=== PATIENT | male | born 1940 | race Caucasian/White ===

== ENCOUNTER 2016-12-31 15:22 | Emergency (ER) | payer MEDICARE ==
[~2016-12-31 15:22] MED LIST: HYZA100T6 PO; LOPR50TA12 PO; WARF5TAB PO; WARF7.5T4 PO
== END 2016-12-31 15:24 | disposition left against medical advice (07) ==
LOC: NED 15:22
DX: R68.89 Other general symptoms and signs (principal)
CPT/HCPCS: 99281

== ENCOUNTER 2017-07-05 23:12 | Emergency (ER) | payer MEDICARE ==
[~2017-07-05] VITALS: Ht 175.3 cm; Wt 88.0 kg
[2017-07-05 23:14] VITALS: BP 180/84; PULSE 80; RESP 16; TEMP 98.2; O2SAT 98
[2017-07-06] MEDS ORDERED: ACETAMINOPHEN 325 MG TAB PO ONE (02:15)
[2017-07-06] MEDS ORDERED: DIPHTH/TETANUS/ACEL PERTUSSIS (BOOSTER) 0.5 ML VIAL/PFS IM ONE (02:15)
--- NOTE | 2017-07-06 02:33 | RADRPT ---
EXAM DATE/TIME: 07/06/2017 02:26 [facility] COMPARISON: No previous studies available for comparison. INDICATIONS : Left elbow pain post fall. MEDICAL HISTORY : None. SURGICAL HISTORY : None. ENCOUNTER: Initial ACUITY: 1 day PAIN SCORE: 4/10 LOCATION: Bilateral elbow. FINDINGS: Multiple view examination of the left elbow demonstrates no soft tissue swelling, joint effusion, or fracture. The osseous structures are in normal alignment. Prominent bone spur at the triceps inserti on site. Bony mineralization is normal. CONCLUSION: 1. No acute findings. Bone spur at triceps insertion site. Josh Leung MD on July 06, 2017 at 2:30 Board Certified Radiologist. This report was verified electronically.
--- NOTE | 2017-07-06 02:33 | RADRPT ---
EXAM DATE/TIME: 07/06/2017 02:24 [facility] COMPARISON: No previous studies available for comparison. INDICATIONS : Pain post fall. MEDICAL HISTORY : None. SURGICAL HISTORY : None. ENCOUNTER: Initial ACUITY: 1 day PAIN SCORE: 110 LOCATION: Bilateral chest FINDINGS: A single view of the chest demonstrates the lungs to be symmetrically aerated without evidence of mas s, infiltrate or effusion. Minimal basilar atelectasis. The cardiomediastinal contours are prominent . Osseous structures are intact. CONCLUSION: 1. Minimal basilar atelectasis. Cardiomegaly. Josh Leung MD on July 06, 2017 at 2:31 Board Certified Radiologist. This report was verified electronically.
--- NOTE | 2017-07-06 03:54 | PD ---
HPI Chief Complaint: Fall Time Seen by Provider: 01:53 Travel History International Travel<30 days: No Contact w/Intl Traveler<30days: No Traveled to known affect area: No History of Present Illness HPI The patient is a 77 year old male who presents to the [facility] [address] emergency department with a history of lower extremity weakness that is chronic with gait instability related to a history of polymyositis and a prior history of cerebrovascular accident with residual mild right-sided weakness. The patient usually uses a walker for stability, however his reports that he frequently will fall backwards, therefore the walker does not seem to always help. She reports that she was helping him to get into the house when he suddenly lost his balance and fell backwards. The patient did not hit his head. He denies having any headache or neck pain. He did land on his left elbow. The patient was noted to have a hematoma. The patient is chronically anticoagulated on Coumadin. He denies having any chest pain or chest pressure. He denies having any new shortness of breath. On reviews of systems otherwise the patient denies any recent fevers, cough, congestion, neck pain, abdominal pain, vomiting, diarrhea, urinary symptoms, or new neurologic symptoms. His tetanus status is unknown. 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 Atrial Fibrillation: Yes Cardiovascular Problems: Yes (HTN, AFIB ) Cerebrovascular Accident: Yes Hypertension: Yes Respiratory: Yes (COPD) Past Surgical History Narrative Surgical The patient's past surgical history is significant for left leg biopsy, coronary artery catheterization with stent placement 1. Coronary Stent: Yes (x1) Other Surgery: Yes (left leg biopsy) Social History Alcohol Use: No Tobacco Use: No Substance Use: No Allergies-Medications (Allergen,Severity, Reaction): Coded Allergies: No Known Allergies (Unverified , 01/02/16) Reported Meds & Prescriptions Reported Meds & Active Scripts Active Reported Warfarin Sodium 5 mg (Warfarin Sodium) 5 Mg Tab 5 Mg PO MOTUWETHFRSA Lopressor (Metoprolol Tartrate) 50 Mg Tab 50 Mg PO BID Hyzaar 100-25 (Losartan Potassium-Hct 100-25) 100 Mg/25 Mg Tab 1 Tab PO HS Warfarin Sodium 7.5 mg (Warfarin Sodium) 7.5 Mg Tab 7.5 Mg PO JOHNSON Review of Systems Except as stated in HPI: all other systems reviewed are Neg General / Constitutional: No: Fever Eyes: No: Visual changes HENT: No: Headaches, Neck Stiffness, Neck Pain Cardiovascular: No: Chest Pain or Discomfort Respiratory: Positive: Shortness of Breath (chronic shortness of breath that is no worse than usual) Gastrointestinal: No: Nausea, Vomiting, Diarrhea, Abdominal Pain Genitourinary: No: Dysuria Musculoskeletal: Positive: Myalgias, Arthralgias, Edema, Pain Skin: No Rash Neurologic: No: Weakness, Focal Abnormalities, Headache, Change in Mentation, Slurred Speech, Sensory Disturbance Psychiatric: No: Depression Endocrine: No: Polydipsia Hematologic/Lymphatic: No: Easy Bruising Physical Exam Narrative General: The patient is a well-developed well-nourished male in no acute distress. Head and Neck exam: Head is normocephalic atraumatic. Eyes: EOMI, pupils are equal round and reactive to light. Nose: Midline septum with pink mucous membranes Mouth: Dentition unremarkable. Moist mucus membranes. Posterior oropharynx is not erythematous. No tonsillar hypertrophy. Uvula midline. Airway patent. Neck: No palpable lymphadenopathy. No nuchal rigidity. No thyromegaly. No spinous process tenderness to palpation. No step-off or crepitus. No erythema or ecchymosis. Cardiovascular: Irregularly irregular with rate control consistent with his history of atrial fibrillation without murmurs, gallops, or rubs. Lungs: Clear to auscultation bilaterally. No wheezes, rhonchi, or rales. Abdomen: Soft, without tenderness to palpation in all 4 quadrants of the abdomen. No guarding, rebound, or rigidity. Normal bowel sounds are audible. No tenderness on palpation of McBurney's point. Extremities: No clubbing, cyanosis, or edema. 2+ pulses in all 4 extremities. No calf tenderness on palpation. The patient has a superficial abrasion on his left knee noted. The patient has no ballotable patella or knee effusion. The patient has no ligament laxity. Patient has no lower extremity tenderness on palpation with full range of motion. The patient on examination of his right upper extremity has no bony tenderness on palpation with full range of motion. The area of interest is the left elbow. The patient is noted to have a hematoma overlying the posterior aspect of the left elbow just distal to the olecranon prominence. The patient has full range of motion. The patient has no bony tenderness or crepitus on palpation. Back: No spinous process tenderness to palpation. No step-off or crepitus. No erythema or ecchymosis. No costovertebral angle tenderness to palpation. Neurologic Exam: Cranial nerves 2-12 were intact on exam. Strength is 5/5 in all 4 extremities. No sensory deficits noted. Skin Exam: No rash noted. Data Data Last Documented VS Vital Signs Date Time Temp Pulse Resp B/P (MAP) Pulse Ox O2 Delivery O2 Flow Rate FiO2 07/06/17 01:30 Room Air 07/05/17 23:14 98.2 80 16 180/84 (116) 98 Orders Orders Elbow, Complete (4 Vws) (07/06/17 01:53) Ice/Cold Pack (07/06/17 01:53) Chest, Single Ap (07/06/17 01:54) Wzca-Bbk-Papobp (Booster) Inj (Boostrix (07/06/17 02:15) Acetaminophen (Tylenol) (07/06/17 02:15) Mik Bandage (07/06/17 02:09) MDM Medical Decision Making Medical Screen Exam Complete: Yes Emergency Medical Condition: Yes Medical Record Reviewed: Yes Interpretation(s) Last Impressions Chest X-Ray 07/06/17153 Signed Impressions: Service Date/Time: Thursday, July 06, 2017 02:24 - CONCLUSION: 1. Minimal basilar atelectasis. Cardiomegaly. Josh Leung MD Elbow X-Ray 07/06/17152 Signed Impressions: Service Date/Time: Thursday, July 06, 2017 02:26 - CONCLUSION: 1. No acute findings. Bone spur at triceps insertion site. Josh Leung MD Differential Diagnosis Contusion, versus hematoma, versus fracture Narrative Course During the course of the patients emergency department visit, the patients history, examination, and differential diagnosis were reviewed with the patient. The patient had an x-ray done of the left arm and chest. The patient was initially provided Tylenol for pain, and update to his tetanus. An ice pack was applied to the patient's left arm. Radiology studies were reviewed and remarkable for a chest x-ray that showed cardiomegaly, bibasilar atelectasis, no other acute abnormality. Elbow x-ray revealed no acute findings, bony spur at the triceps insertion site. An Mik wrap was applied to the patient's left arm. The patient was instructed regarding rice therapy. The patient is resting comfortably and feels better, is alert and in no distress. The patients results and examination findings were discussed with the patient. The repeat examination is unremarkable and benign. The history, exam, diagnostic testing, and current condition do not suggest any significant pathology to warrant further testing, continued ED treatment, admission, or surgical evaluation at this point. The vital signs have been stable. The patient does not have uncontrollable pain, intractable vomiting, or other significant symptoms. The patient's condition is stable and appropriate for discharge. The patient will pursue further outpatient evaluation with a primary care physician or other designated or consulting physician as indicated in the discharge instructions. The patient expressed understanding and was agreeable with this plan. Diagnosis Primary Impression: Contusion of left arm Qualified Codes: S40.022A - Contusion of left upper arm, initial encounter Additional Instructions: The patient is instructed to take Tylenol as written on the package as needed for discomfort. The patient is instructed on rest, ice, compression, and elevation of the area of interest. They are instructed to follow-up with the patient's primary care physician to discuss the patient's gait instability and the possibility of getting a wheelchair. Med/Other Pt SpecificInfo: No Change to Meds Disposition: 01 DISCHARGE HOME Condition: Stable Dina Whitley MD Jul 06, 2017 03:54
== END 2017-07-06 04:43 | disposition home or self-care (01) ==
LOC: NEPE 23:12
DX: S40.022A Contusion of left upper arm, initial encounter (principal); S80.212A Abrasion, left knee, initial encounter; I51.7 Cardiomegaly; R06.02 Shortness of breath; I48.91 Unspecified atrial fibrillation; I69.854 Hemiplegia and hemiparesis following other cerebrovascular disease affecting left non-dominant side; M33.20 Polymyositis, organ involvement unspecified; W18.30XA Fall on same level, unspecified, initial encounter; Z23 Encounter for immunization
CPT/HCPCS: 71010; 73080; 90471; 90715

== ENCOUNTER 2017-08-10 09:54 | Inpatient (IN) | payer MEDICARE ==
[~2017-08-10] VITALS: Ht 170.2 cm; Wt 91.1 kg
[2017-08-10] VITALS (8 sets, daily range): BP systolic 121–198; BP diastolic 63–93; PULSE 80–102; RESP 18–20; TEMP 97.6–97.8; O2SAT 94–97
[2017-08-10] MEDS ORDERED: LOSA100T2 PO (10:06)
[2017-08-10] MEDS ORDERED: WARF-23 PO (10:06)
[2017-08-10] MEDS ORDERED: METO-309 PO (10:06)
[2017-08-10] MEDS ORDERED: WARF-60 PO (10:06)
--- NOTE | 2017-08-10 10:36 | PD ---
HPI Chief Complaint: Nosebleed Time Seen by Provider: 10:31 Travel History International Travel<30 days: No Contact w/Intl Traveler<30days: No Traveled to known affect area: No History of Present Illness HPI 77-year-old man with history of A. fib, currently on Coumadin, presents to the ER today brought in by his because he had a nosebleed at home this morning. He currently states that the bleeding seems to have stopped. He is still coughing a small amount of blood up. His states that they had talked to their primary care doctor and had been told to come to get his blood work checked out. He denies any fevers, chest pains, shortness of breath, or any other issues. Modifying Factors: None Associated Signs & Symptoms: Epistaxis Risk Factors: On Coumadin PFSH Past Medical History Hx Anticoagulant Therapy: Yes (COUMADIN) Atrial Fibrillation: Yes Cardiovascular Problems: Yes (HTN, AFIB ) Cerebrovascular Accident: Yes Hypertension: Yes Respiratory: Yes (COPD) Tetanus Vaccination: < 5 Years Past Surgical History Coronary Stent: Yes (x1) Other Surgery: Yes (left leg biopsy) Social History Alcohol Use: No Tobacco Use: No Substance Use: No Allergies-Medications (Allergen,Severity, Reaction): Coded Allergies: No Known Allergies (Unverified , 01/02/16) Reported Meds & Prescriptions Reported Meds & Active Scripts Active Reported Lopressor (Metoprolol Tartrate) 50 Mg Tab 50 Mg PO BID Losartan-Hydrochlorothiazide 100-25 Mg Tab 1 Tab PO DAILY Warfarin 6 Mg Tab 6 Mg PO JOHNSON Warfarin 5 Mg Tab 5 Mg PO ,,,,F,SA Review of Systems Except as stated in HPI: all other systems reviewed are Neg Physical Exam Narrative 5GENERAL: Well-developed elderly white male patient currently in mild distress, awake and oriented 3, coughing intermittently. Aphasic, difficult to understand. SKIN: Focused skin assessment warm/dry. HEAD: Atraumatic. Normocephalic. EYES: Pupils equal and round. No scleral icterus. No injection or drainage. ENT: Mucosa pink and moist. No erythema or exudates. No uvular edema. No uvular , palatal, or tonsillar deviation. Airway patent. Nasal turbinates appear normal small amount of dried left nostril blood, but no significant purulent drainage or septal hematoma. NECK: Trachea midline. No JVD. CARDIOVASCULAR: Regular rate and rhythm. No murmur appreciated. RESPIRATORY: No accessory muscle use. Clear to auscultation. Breath sounds equal bilaterally. GASTROINTESTINAL: Abdomen soft, non-tender, nondistended. Hepatic and splenic margins not palpable. MUSCULOSKELETAL: No obvious deformities. No clubbing. No cyanosis. No edema. NEUROLOGICAL: Awake and alert. No obvious cranial nerve deficits. Motor grossly within normal limits. Aphasic. PSYCHIATRIC: Appropriate mood and affect; insight and judgment normal. Data Data Last Documented VS Vital Signs Date Time Temp Pulse Resp B/P (MAP) Pulse Ox O2 Delivery O2 Flow Rate FiO2 08/10/17 09:55 97.6 92 20 198/93 (128) 97 Room Air Orders Orders Complete Blood Count With Diff (08/10/17 10:11) Basic Metabolic Panel (Bmp) (08/10/17 10:11) Prothrombin Time / Inr (Pt) (08/10/17 10:11) Act Partial Throm Time (Ptt) (08/10/17 10:11) Type And Screen (08/10/17 10:11) Chest, Single Ap (08/10/17 10:31) Benzocaine 20% Oral Spr (Hurricaine 20% (08/10/17 12:45) Urinalysis - C+S If Indicated (08/10/17 12:38) Admit Order (Ed Use Only) (08/10/17 12:46) Complete Blood Count With Diff (08/10/17 16:00) Labs Laboratory Tests Test 08/10/17 10:50 08/10/17 12:45 White Blood Count 8.5 TH/MM3 Red Blood Count 3.44 MIL/MM3 Hemoglobin 11.7 GM/DL Hematocrit 34.9 % Mean Corpuscular Volume 101.6 FL Mean Corpuscular Hemoglobin 34.0 PG Mean Corpuscular Hemoglobin Concent 33.4 % Red Cell Distribution Width 14.0 % Platelet Count 182 TH/MM3 Mean Platelet Volume 7.7 FL Neutrophils (%) (Auto) 71.6 % Lymphocytes (%) (Auto) 18.4 % Monocytes (%) (Auto) 9.2 % Eosinophils (%) (Auto) 0.1 % Basophils (%) (Auto) 0.7 % Neutrophils # (Auto) 6.1 TH/MM3 Lymphocytes # (Auto) 1.6 TH/MM3 Monocytes # (Auto) 0.8 TH/MM3 Eosinophils # (Auto) 0.0 TH/MM3 Basophils # (Auto) 0.1 TH/MM3 CBC Comment DIFF FINAL Differential Comment Prothrombin Time 35.8 SEC Prothromb Time International Ratio 3.1 RATIO Activated Partial Thromboplast Time 35.5 SEC Blood Urea Nitrogen 33 MG/DL Creatinine 1.11 MG/DL Random Glucose 91 MG/DL Calcium Level 8.8 MG/DL Sodium Level 143 MEQ/L Potassium Level 4.3 MEQ/L Chloride Level 109 MEQ/L Carbon Dioxide Level 26.9 MEQ/L Anion Gap 7 MEQ/L Estimat Glomerular Filtration Rate 64 ML/MIN Urine Color YELLOW Urine Turbidity CLEAR Urine pH 7.5 Urine Specific [place] 1.013 Urine Protein NEG mg/dL Urine Glucose (UA) NEG mg/dL Urine Ketones TRACE mg/dL Urine Occult Blood MOD Urine Nitrite NEG Urine Bilirubin NEG Urine Urobilinogen LESS THAN 2.0 MG/DL Urine Leukocyte Esterase TRACE Urine RBC /hpf Urine WBC 7 /hpf Urine Mucus FEW /lpf Microscopic Urinalysis Comment CULT NOT INDICATED MDM Medical Decision Making Medical Screen Exam Complete: Yes Emergency Medical Condition: Yes Medical Record Reviewed: Yes Interpretation(s) Laboratory Tests Test 08/10/17 10:50 08/10/17 12:45 Red Blood Count 3.44 MIL/MM3 (4.50-5.90) Hemoglobin 11.7 GM/DL (13.0-17.0) Hematocrit 34.9 % (39.0-51.0) Mean Corpuscular Volume 101.6 FL (80.0-100.0) Neutrophils (%) (Auto) 71.6 % (16.0-70.0) Monocytes (%) (Auto) 9.2 % (0.0-8.0) Prothrombin Time 35.8 SEC (9.8-11.6) Activated Partial Thromboplast Time 35.5 SEC (24.3-30.1) Blood Urea Nitrogen 33 MG/DL (7-18) Chloride Level 109 MEQ/L (98-107) Estimat Glomerular Filtration Rate 64 ML/MIN (>89) Last 24 hours Impressions Chest X-Ray 08/10/17 1031 Signed Impressions: Service Date/Time: Thursday, August 10, 2017 10:45 - CONCLUSION: No acute disease. No significant change has occurred. Nick Dennison MD Differential Diagnosis Epistaxis, rule out coagulopathy versus anemia Narrative Course Patient's epistaxis stopped by the time he is here in the ER. H&H is stable. Vital signs are stable. INR is 3 which is therapeutic. However, while he was in the ER, he started having epistaxis again and a Rhino Rocket was placed in the left nostril with stopping of bleeding. White reports hematuria while he was in the ER and he was noted that he was having red blood in his urine. At this point, case was discussed with Dr. Rodriguez for admission for observation for bleeding while on anticoagulation. Procedures Procedure Narrative Rhino Rocket placement: Left nostril was sprayed with Hurricaine spray, and rhino rocket was placed after being placed in sterile water. 5 cc of air was insufflated into both balloons. Patient tolerated procedure well. Epistaxis seems to have stopped. Diagnosis Primary Impression: Epistaxis Additional Impressions: Hematuria Anticoagulated Admitting Information Admitting Physician Requests: Admit Reji Garcia MD Aug 10, 2017 10:35
--- NOTE | 2017-08-10 10:49 | RADRPT ---
EXAM DATE/TIME: 08/10/2017 10:45 [facility] COMPARISON: CHEST SINGLE AP, July 06, 2017, 2:24. INDICATIONS : Congestion. MEDICAL HISTORY : Stroke. Congestive heart failure. Chronic obstructive pulmonary disease. atrial fibrillation SURGICAL HISTORY : None. ENCOUNTER: Initial ACUITY: 1 day PAIN SCORE: Non-responsive. LOCATION: Bilateral chest FINDINGS: A single view of the chest demonstrates the lungs to be symmetrically aerated without evidence of mas s, infiltrate or effusion. The heart size is mildly enlarged but stable compared to the prior study. . Osseous structures are intact. CONCLUSION: No acute disease. No significant change has occurred. Nick Dennison MD on August 10, 2017 at 10:47 Board Certified Radiologist. This report was verified electronically.
[2017-08-10 11:11] LABS: AUTOMATED NEUTROPHIL # 6.1 TH/MM3 (1.8-7.7); BASOPHIL # 0.1 TH/MM3 (0-0.2); BASOPHIL % 0.7 % (0.0-2.0); EOSINOPHIL % 0.1 % (0.0-4.0); HEMATOCRIT 34.9 % (39.0-51.0); HEMO FLAGS DIFF FINAL; LYMPH % 18.4 % (9.0-44.0); LYMPHOCYTE # 1.6 TH/MM3 (1.0-4.8); MEAN CELL VOLUME 101.6 FL (80.0-100.0); MEAN CORPUSCULAR HGB CONC 33.4 % (32.0-36.0); MONO % 9.2 % (0.0-8.0); NEUT % 71.6 % (16.0-70.0); PLATELET COUNT 182 TH/MM3 (150-450); RED BLOOD COUNT 3.44 MIL/MM3 (4.50-5.90); WHITE BLOOD COUNT 8.5 TH/MM3 (4.0-11.0)
[2017-08-10 11:20] LABS: APTT (PATIENT) 35.5 SEC (24.3-30.1); INTERNATIONAL NORMALIZED RATIO 3.1 RATIO; PROTHROMBIN TIME - PATIENT 35.8 SEC (9.8-11.6)
[2017-08-10 11:27] LABS: BICARBONATE 26.9 MEQ/L (21.0-32.0); POTASSIUM 4.3 MEQ/L (3.5-5.1)
[2017-08-10] MEDS ORDERED: BENZOCAINE 20% ORAL SPR 60 ML CAN OROPHARYNG ONE (12:45)
[2017-08-10 13:11] LABS: BLOOD, URINE MOD (NEG); COMMENT (UR) CULT NOT INDICATED; CULTURE IF INDICATED CULT NOT INDICATED; GLUCOSE,URINE NEG (NEG); KETONE, URINE TRACE mg/dL (NEG); MUCUS URINE FEW /lpf (OCC); NITRITE,URINE NEG (NEG); PH, URINE 7.5 (5.0-8.5); URINE COLOR YELLOW (YELLW/STRAW)
[2017-08-10] MEDS ORDERED: NALOXONE HCL 0.4 MG/ML AMP IV PUSH PRN (14:45)
[2017-08-10] MEDS ORDERED: SODIUM CHLORIDE 0.9% FLUSH 10 ML FLUSH IV FLUSH PRN (14:45)
[2017-08-10] MEDS ORDERED: ACETAMINOPHEN 325 MG TAB PO PRN (14:45)
[2017-08-10] MEDS ORDERED: ONDANSETRON HCL 4 MG/2 ML VIAL IVP PRN (14:45)
--- NOTE | 2017-08-10 15:23 | MH ---
cc: KESHA ROSARIO M.D., JAWED A. MD DATE OF ADMISSION: 08/10/2017 DATE OF : [address] Kesha Rosario. REASON FOR ADMISSION Bleeding from the nose. HISTORY OF PRESENT ILLNESS The patient is a pleasant 77-year male with significant past medical history of hypertension, atrial fibrillation and COPD, who was brought to the ER because of a nosebleed. The patient started having a nosebleed from this morning and when he came to the ER he was coughing up blood. He continued to have a nosebleed. A Rhino Rocket was put in. Also he had hematuria while in the ER. So he was recommended for admission. He had an INR of 3.1 in the ER. The patient has no other complaint. No headache, no dizziness. No chest pain, diaphoresis or palpitations. There is no abdominal pain. There are no genitourinary symptoms except blood in the urine. PAST MEDICAL HISTORY 1. Hypertension. 2. Atrial fibrillation. 3. COPD. MEDICATIONS Reviewed. Please see the EMR. ALLERGIES No known drug allergies. SOCIAL HISTORY The patient does not smoke, drink or do any drugs. PAST MEDICAL HISTORY 1. Coronary stent x1 in the past. 2. Left leg biopsy. 3. CAD. REVIEW OF SYSTEMS As described above in the history of present illness. Otherwise negative for 10 systems. PHYSICAL EXAMINATION GENERAL: The patient is awake, alert, lying on the bed without any apparent distress with a Rhino Rocket in the left nostril. VITAL SIGNS: Afebrile. Pulse 80, respiratory rate 20, blood pressure 167/86. Pulse ox 97% on room air. HEENT: Head is normocephalic. Negative conjunctival injection. No icterus. Mouth unremarkable. NECK: Supple. No increased JVD. Negative thyromegaly. Central trachea. LUNGS: Slight decreased air entry bibasilar, otherwise unremarkable. HEART: S1 and S2 audible. I do not hear any S3 gallop. ABDOMEN: Soft. No organomegaly. Positive bowel sounds. EXTREMITIES: No cyanosis or pedal edema appreciated. NEUROLOGIC: Awake and alert. Normal facial features. Normal speech. Normal power and tone. Moving all his extremities. He is trying to talk but he cannot talk. He has a history of aphasia. is not at bedside. PSYCHIATRIC: Appropriate mood and affect. LABORATORY Hemoglobin 11.7, hematocrit 34.9, platelet count 182. PT 35.8, INR 3.1, APTT 35.5. Chemistry shows chloride 109, BUN 33. UA shows ketone large, occult blood moderate, leukocyte esterase trace, RBC innumerable, WBC 7. IMAGING Chest x-ray was done which showed no acute disease. No significant change has occurred. ASSESSMENT 1. Epistaxis. 2. Hematuria. 3. High INR. 4. Coagulopathy 5. Atrial fibrillation. 6. Anemia, likely of chronic disease. 7. 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 8. History of hypertension. 9. History of CAD. PLAN 1. Admit to the floor under observation. 2. Hold Coumadin. 3. Monitor PT and INR. 4. ENT consult. 5. H&H this afternoon. 6. Clear liquids for the time being. 7. Monitor blood pressure. 8. Continue home medications as indicated. 9. I explained to the patient. Discussed with the ER physician. 10. Further recommendations to follow as per patient progress. Agapito Rodriguez MD JP/ANITRA /2:46 PM /3:00 PM
[2017-08-10 17:09] LABS: AUTOMATED NEUTROPHIL # 10.5 TH/MM3 (1.8-7.7); BASOPHIL # 0.1 TH/MM3 (0-0.2); BASOPHIL % 0.4 % (0.0-2.0); EOSINOPHIL % 0.1 % (0.0-4.0); HEMATOCRIT 33.1 % (39.0-51.0); LYMPH % 16.7 % (9.0-44.0); LYMPHOCYTE # 2.4 TH/MM3 (1.0-4.8); MEAN CELL VOLUME 101.8 FL (80.0-100.0); MEAN CORPUSCULAR HEMOGLOBIN 32.7 PG (27.0-34.0); MEAN CORPUSCULAR HGB CONC 32.2 % (32.0-36.0); MONO % 10.1 % (0.0-8.0); NEUT % 72.7 % (16.0-70.0); PLATELET COUNT 188 TH/MM3 (150-450); RED BLOOD COUNT 3.25 MIL/MM3 (4.50-5.90); RED CELL DISTRIBUTION WIDTH 13.9 % (11.6-17.2); WHITE BLOOD COUNT 14.5 TH/MM3 (4.0-11.0)
[2017-08-10 17:17] LABS: HEMO FLAGS AUTO DIFF
[2017-08-10 17:55] LABS: SCAN/DIFF AUTO DIFF CONFIRMED
[2017-08-10 17:56] LABS: PLATELET ESTIMATE SMEAR NORMAL (NORMAL); PLATELET MORPHOLOGY NORMAL (NORMAL)
[2017-08-10] MEDS: SODIUM CHLOR 0.9% 1000 ML INJ 1,000 ML IV SCH (19:18)
[2017-08-10] MEDS: SODIUM CHLORIDE 0.9% FLUSH 10 ML FLUSH IV FLUSH SCH (19:57)
[2017-08-10] MEDS: METOPROLOL TARTRATE 50 MG TAB PO SCH (20:01)
[2017-08-10] MEDS: DILTIAZEM HCL 60 MG TAB PO SCH (22:46)
[2017-08-11] VITALS (15 sets, daily range): BP systolic 105–152; BP diastolic 55–86; PULSE 55–88; RESP 16–30; TEMP 97.2–100.5; O2SAT 94–100
[2017-08-11] MEDS ORDERED: NON-FORMULARY DRUG (Losartan-Hydrochlorothiazide 1 TAB) PO SCH (09:00)
[2017-08-11] MEDS ORDERED: PNEUMOCOCCAL POLYVALENT INJ 25 MCG/0.5 ML SYR IM ONE (10:00)
--- NOTE | 2017-08-11 10:06 | HHI.PR ---
Subjective Remarks pt is alert talking mostly yes and no very difficult to understand mumbles denies any pain , n/v , , cough , dizziness, BUCKNER, abd pain, dysuria, ches genia abd pain ROS for 12 point system is otherwise unremarkable Objective Objective Results - Vital Signs Date Time Temp Pulse Resp B/P (MAP) Pulse Ox O2 Delivery O2 Flow Rate FiO2 08/11/17 07:21 97.6 55 22 135/61 (85) 97 08/11/17 04:26 97.8 86 18 134/70 (91) 97 08/10/17 23:35 97.7 86 18 136/63 (87) 96 08/10/17 21:09 97.6 102 18 121/64 (83) 96 08/10/17 19:20 97.6 84 20 141/69 (93) 94 08/10/17 17:30 101 20 174/81 (112) 95 08/10/17 17:27 96 21 08/10/17 16:15 97.8 97 20 149/69 (95) 96 08/10/17 15:53 08/10/17 13:24 80 20 167/86 (113) 08/10/17 09:55 97.6 92 20 198/93 (128) 97 Room Air I/O 08/10/17 08/10/17 08/10/17 08/11/17 08/11/17 08/11/17 07:00 15:00 23:00 07:00 15:00 23:00 # Voids 2 Result Diagram: 08/10/17 1650 08/10/17 1050 Other Results Laboratory Tests Test 08/10/17 10:50 08/10/17 12:45 08/10/17 16:50 White Blood Count 8.5 14.5 Red Blood Count 3.44 3.25 Hemoglobin 11.7 10.6 Hematocrit 34.9 33.1 Mean Corpuscular Volume 101.6 101.8 Mean Corpuscular Hemoglobin 34.0 32.7 Mean Corpuscular Hemoglobin Concent 33.4 32.2 Red Cell Distribution Width 14.0 13.9 Platelet Count 182 188 Mean Platelet Volume 7.7 7.8 Neutrophils (%) (Auto) 71.6 72.7 Lymphocytes (%) (Auto) 18.4 16.7 Monocytes (%) (Auto) 9.2 10.1 Eosinophils (%) (Auto) 0.1 0.1 Basophils (%) (Auto) 0.7 0.4 Neutrophils # (Auto) 6.1 10.5 Lymphocytes # (Auto) 1.6 2.4 Monocytes # (Auto) 0.8 1.5 Eosinophils # (Auto) 0.0 0.0 Basophils # (Auto) 0.1 0.1 CBC Comment DIFF FINAL AUTO DIFF Differential Comment AUTO DIFF CONFIRMED Prothrombin Time 35.8 Prothromb Time International Ratio 3.1 Activated Partial Thromboplast Time 35.5 Blood Urea Nitrogen 33 Creatinine 1.11 Random Glucose 91 Calcium Level 8.8 Sodium Level 143 Potassium Level 4.3 Chloride Level 109 Carbon Dioxide Level 26.9 Anion Gap 7 Estimat Glomerular Filtration Rate 64 Urine Color YELLOW Urine Turbidity CLEAR Urine pH 7.5 Urine Specific [place] 1.013 Urine Protein NEG Urine Glucose (UA) NEG Urine Ketones TRACE Urine Occult Blood MOD Urine Nitrite NEG Urine Bilirubin NEG Urine Urobilinogen LESS THAN 2.0 Urine Leukocyte Esterase TRACE Urine RBC Urine WBC 7 Urine Mucus FEW Microscopic Urinalysis Comment CULT NOT INDICATED Platelet Estimate NORMAL Platelet Morphology Comment NORMAL Physical Exam Physical Exam GENERAL: The patient is awake, alert, lying on the bed without any apparent distress without Rhino Rocket in the left nostril. VITAL SIGNS: reviewed HEENT: Head is normocephalic. Negative conjunctival injection. No icterus. Mouth unremarkable. no bleeding noted from nose or in mouth/ NECK: Supple. No increased JVD. Negative thyromegaly. Central trachea. LUNGS: Slight decreased air entry bibasilar, otherwise unremarkable. HEART: S1 and S2 audible. I do not hear any S3 gallop. ABDOMEN: Soft. No organomegaly. Positive bowel sounds. EXTREMITIES: No cyanosis or pedal edema appreciated. NEUROLOGIC: Awake and alert. Normal facial features. Normal power and tone. Moving all his extremities. He is trying to talk but he cannot talk just saying yes and no and vry hard to undrstands mumbles. He has a history of aphasia. is not at bedside. PSYCHIATRIC: Appropriate mood and affect. A/P Assessment and Plan 1. Epistaxis. 2. Hematuria. 3. High INR. 4. Coagulopathy 5. Atrial fibrillation. 6. Anemia, likely of chronic disease. 7. 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 8. History of hypertension. 9. History of CAD. 10. GI bleed per rectum 12. Hematuria PLAN 1. seen on the floor. 2. Hold Coumadin. 3. Monitor PT and INR. 4. ENT consult. 5. H&H will follow. 6. Clear liquids for the time being. 7. Monitor blood pressure. 8. Continue home medications as indicated. 9. As per RN last night pt has rectal bleeding ? hemmorhoids. will get GI consult will monitor for hematuria labs for today and tomorrow dw in detail on phone about his condition and consequences fo holding coumadin, she understood very well. I explained to the patient. Discussed with rn Further recommendations to follow as per patient progress. pt warrent admission bc of bleeding from few sites, needs further mangment to prevent severe symtomatic anemia and uncontrolled heart rythum. Agapito Rodriguez MD Aug 11, 2017 10:06
[2017-08-11] MEDS: PANTOPRAZOLE SODIUM 40 MG VIAL IV PUSH SCH (10:13)
[2017-08-11] MEDS: METOPROLOL TARTRATE 50 MG TAB PO SCH ×2 (10:13→21:54)
[2017-08-11] MEDS: HYDROCHLOROTHIAZIDE 25 MG TAB PO SCH (10:13)
[2017-08-11] MEDS: LOSARTAN 50 MG TAB PO SCH (10:14)
[2017-08-11] MEDS: DILTIAZEM HCL 60 MG TAB PO SCH ×4 (10:14→21:54)
[2017-08-11] MEDS: SODIUM CHLORIDE 0.9% FLUSH 10 ML FLUSH IV FLUSH SCH ×2 (10:16→21:54)
--- NOTE | 2017-08-11 10:26 | PD.CONS ---
HPI History of Present Illness This is a 77 year old male who takes Coumadin for atrial fibrillation, who presented to the emergency room for evaluation of a nosebleed, where a Rhino rocket was placed. His INR was 3.1 on admission and his H/H was 10.6/33.1. He was admitted as an observation patient, his coumadin was placed on hold, and ENT was consulted. Overnight, the nurse reported that he had some rectal bleeding and therefore GI has been consulted for further evaluation and treatment. The patient denies any history of GI bleeding or peptic ulcer disease. He denies any decreased appetite, abnormal weight loss, nausea or vomiting, heartburn or reflux, abdominal pain, bowel changes, or red blood mixed within his stool. He has not seen any black tarry stools. The nurse reports that he has not had any melena on this shift, but she was told in reports that he had a large melanotic stool overnight. She also reports that he had a significant nosebleed overnight. She is not currently having any active bleeding. (Samira Dyson) PFSH Past Medical History Atrial fibrillation, on coumadin Hypertension COPD Past Surgical History Cardiac catheterization with stent placement Left leg biopsy CAD (Samira Dyson) Coded Allergies: No Known Allergies (Unverified , 01/02/16) Medications Allergies Coded Allergies Type Severity Reaction Last Updated Verified No Known Allergies 01/02/16 No Active Scripts Medications Dose Route/Sig Max Daily Dose Days Date Category Lopressor (Metoprolol Tartrate) 50 Mg Tab 50 Mg PO BID 08/10/17 Reported Losartan-Hydrochlorothiazide 100-25 Mg Tab 1 Tab PO DAILY 08/10/17 Reported Warfarin 6 Mg Tab 6 Mg PO JOHNSON 08/10/17 Reported Warfarin 5 Mg Tab 5 Mg PO M,,,TH,F,SA 08/10/17 Reported Family History Denies any family history of esophageal, gastric, or colorectal cancer Social History Denies use of tobacco, alcohol, or illicit drug use (Samira Dyson) Review of Systems Constitutional: COMPLAINS OF: Fatigue, DENIES: Weight loss, Change in appetite Respiratory: DENIES: Cough Cardiovascular: DENIES: Chest pain Gastrointestinal: COMPLAINS OF: Black stools, DENIES: Abdominal pain, Bloody stools, Constipation, Diarrhea, Nausea, Vomiting, Anorexia, Swelling of Abdomen , Heartburn, Hematemesis Musculoskeletal: COMPLAINS OF: Joint pain Hematologic/lymphatic: COMPLAINS OF: Bruising Neurologic: DENIES: Headache Psychiatric: DENIES: Confusion ROS Epistaxis (KarisSamira Green TESSA) GI Exam Vitals I&O Vital Signs Date Time Temp Pulse Resp B/P (MAP) Pulse Ox O2 Delivery O2 Flow Rate FiO2 08/11/17 07:21 97.6 55 22 135/61 (85) 97 08/11/17 04:26 97.8 86 18 134/70 (91) 97 08/10/17 23:35 97.7 86 18 136/63 (87) 96 08/10/17 21:09 97.6 102 18 121/64 (83) 96 08/10/17 19:20 97.6 84 20 141/69 (93) 94 08/10/17 17:30 101 20 174/81 (112) 95 08/10/17 17:27 96 21 08/10/17 16:15 97.8 97 20 149/69 (95) 96 08/10/17 15:53 08/10/17 13:24 80 20 167/86 (113) I/O 08/10/17 08/10/17 08/10/17 08/11/17 08/11/17 08/11/17 07:00 15:00 23:00 07:00 15:00 23:00 # Voids 2 Imaging Allergies Coded Allergies Type Severity Reaction Last Updated Verified No Known Allergies 01/02/16 No Active Scripts Medications Dose Route/Sig Max Daily Dose Days Date Category Lopressor (Metoprolol Tartrate) 50 Mg Tab 50 Mg PO BID 08/10/17 Reported Losartan-Hydrochlorothiazide 100-25 Mg Tab 1 Tab PO DAILY 08/10/17 Reported Warfarin 6 Mg Tab 6 Mg PO JOHNSON 08/10/17 Reported Warfarin 5 Mg Tab 5 Mg PO M,,WE,TH,F,SA 08/10/17 Reported Laboratory Test 08/10/17 10:50 08/10/17 12:45 08/10/17 16:50 White Blood Count 8.5 TH/MM3 14.5 TH/MM3 Red Blood Count 3.44 MIL/MM3 3.25 MIL/MM3 Hemoglobin 11.7 GM/DL 10.6 GM/DL Hematocrit 34.9 % 33.1 % Mean Corpuscular Volume 101.6 FL 101.8 FL Mean Corpuscular Hemoglobin 34.0 PG 32.7 PG Mean Corpuscular Hemoglobin Concent 33.4 % 32.2 % Red Cell Distribution Width 14.0 % 13.9 % Platelet Count 182 TH/MM3 188 TH/MM3 Mean Platelet Volume 7.7 FL 7.8 FL Neutrophils (%) (Auto) 71.6 % 72.7 % Lymphocytes (%) (Auto) 18.4 % 16.7 % Monocytes (%) (Auto) 9.2 % 10.1 % Eosinophils (%) (Auto) 0.1 % 0.1 % Basophils (%) (Auto) 0.7 % 0.4 % Neutrophils # (Auto) 6.1 TH/MM3 10.5 TH/MM3 Lymphocytes # (Auto) 1.6 TH/MM3 2.4 TH/MM3 Monocytes # (Auto) 0.8 TH/MM3 1.5 TH/MM3 Eosinophils # (Auto) 0.0 TH/MM3 0.0 TH/MM3 Basophils # (Auto) 0.1 TH/MM3 0.1 TH/MM3 CBC Comment DIFF FINAL AUTO DIFF Differential Comment AUTO DIFF CONFIRMED Prothrombin Time 35.8 SEC Prothromb Time International Ratio 3.1 RATIO Activated Partial Thromboplast Time 35.5 SEC Blood Urea Nitrogen 33 MG/DL Creatinine 1.11 MG/DL Random Glucose 91 MG/DL Calcium Level 8.8 MG/DL Sodium Level 143 MEQ/L Potassium Level 4.3 MEQ/L Chloride Level 109 MEQ/L Carbon Dioxide Level 26.9 MEQ/L Anion Gap 7 MEQ/L Estimat Glomerular Filtration Rate 64 ML/MIN Urine Color YELLOW Urine Turbidity CLEAR Urine pH 7.5 Urine Specific [place] 1.013 Urine Protein NEG mg/dL Urine Glucose (UA) NEG mg/dL Urine Ketones TRACE mg/dL Urine Occult Blood MOD Urine Nitrite NEG Urine Bilirubin NEG Urine Urobilinogen LESS THAN 2.0 MG/DL Urine Leukocyte Esterase TRACE Urine RBC /hpf Urine WBC 7 /hpf Urine Mucus FEW /lpf Microscopic Urinalysis Comment CULT NOT INDICATED Platelet Estimate NORMAL Platelet Morphology Comment NORMAL Physical Examination HEENT: Normocephalic; atraumatic; no jaundice. CHEST: Resp. even/unlabored CARDIAC: Irregular ABDOMEN: Soft, nondistended, nontender; no hepatosplenomegaly; bowel sounds are present in all four quadrants. EXTREMITIES: No clubbing, cyanosis, or edema. SKIN: Normal; no rash; no jaundice. DIRECTOR DATA PROCESSING: No focal deficits; alert and oriented times three. (Samira Dyson) Assessment and Plan Plan ASSESSMENT: - Melena, questionable GIB. Pt on Coumadin for Afib and presented to the ER for significant epistaxis. INR 3.1. His coumadin is on hold, s/p rhino rocket yesterday. Pt had more nasal bleeding overnight and reports that he had a large melanotic stool on 11-7 shift. He has not had any further episodes. The patient denies any active GI bleeding. He is not having any GI symptoms. Last HH yesterday afternoon 10.6/33.1. INR 3.1. Clear liquids. No labs from today. Will recheck and plan for EGD in am to r/o GI bleeding. - Epistaxis. ENT consulted. - Coagulopathy. Coumadin at home. INR - Atrial fibrillation, on coumadin at home. Currently on hold. INR 3.1 yesterday. - CAD, COPD per attending PLAN: - Plan for egd in am - Obtain consents - Clear liquids - NPO after MN - Add Protonix 40mg IV daily - Stat PT/INR, CBC - CBC, PT/INR in am - Supportive care - Further recommendations to follow based on results of above - PT seen and examined by Dr. Hendricks and myself and this note is written on his behalf INR came back as 2.5. Nurse reports that patient has had 2 additional melanotic stools. HH was stable this am. Will give 2 units of FFP with Lasix 20mg IV x 1 in between units. Serial HH. EGD in am. Notify GI in am if inr > 2.0 (Samira Dyson) Physician Comments Patient seen and examined Agree with above Continue with current supportive care Monitor labs Plan for EGD tomorrow (Mack Hendricks MD) Samira Dyson Aug 11, 2017 10:26 Mack Hendricks MD Aug 11, 2017 22:42
[2017-08-11] MEDS ORDERED: PANTOPRAZOLE SODIUM 40 MG VIAL IV PUSH SCH (11:15)
--- NOTE | 2017-08-11 12:52 | PD.CONS ---
History of Present Illness Service ENT Consult Requested By ED Reason for Consult Epistaxis, mild Coumadin toxicity. Primary Care Physician Jacob Murguia M.D. Diagnoses: History of Present Illness 77 year old male, Afib, COPD HTN. On Coumadin. Presented with mild epistaxis. This had slowed in the ED, but he was coughing up some blood and INR was 3.1. He had a left Rapid Rhino pack placed with control of bleeding. He evidenced some rectal bleeding and hematuria and is being observed. Coumadin was held. He pulled out the nasal pack last night. There was some old clot after, but no more bleeding. He has no ENT complaints now. Review of Systems Ears, nose, mouth, throat: COMPLAINS OF: Epistaxis, DENIES: Vertigo, Nasal discharge, Oral lesions, Throat pain, Hoarseness, Ear Pain Past Family Social History Allergies: Coded Allergies: No Known Allergies (Unverified , 01/02/16) Physical Exam Vital Signs Vital Signs Date Time Temp Pulse Resp B/P (MAP) Pulse Ox O2 Delivery O2 Flow Rate FiO2 08/11/17 11:04 97.8 73 22 130/62 (84) 94 08/11/17 07:21 97.6 55 22 135/61 (85) 97 08/11/17 04:26 97.8 86 18 134/70 (91) 97 08/10/17 23:35 97.7 86 18 136/63 (87) 96 08/10/17 21:09 97.6 102 18 121/64 (83) 96 08/10/17 19:20 97.6 84 20 141/69 (93) 94 08/10/17 17:30 101 20 174/81 (112) 95 08/10/17 17:27 96 21 08/10/17 16:15 97.8 97 20 149/69 (95) 96 08/10/17 15:53 08/10/17 13:24 80 20 167/86 (113) Physical Exam GENERAL: This is a well-nourished, well-developed patient, in no apparent distress. SKIN: No rashes, ecchymoses or lesions. Cool and dry. HEAD: Atraumatic. Normocephalic. No temporal or scalp tenderness. EYES: Pupils equal round and reactive. Extraocular motions intact. No scleral icterus. No injection or drainage. ENT: Nose without bleeding, purulent drainage or septal hematoma. Throat without erythema, tonsillar hypertrophy or exudate. Uvula midline. Airway patent. NECK: Trachea midline. No JVD or lymphadenopathy. Supple, nontender, no meningeal signs. Laboratory Laboratory Tests Test 08/10/17 16:50 White Blood Count 14.5 Red Blood Count 3.25 Hemoglobin 10.6 Hematocrit 33.1 Mean Corpuscular Volume 101.8 Mean Corpuscular Hemoglobin 32.7 Mean Corpuscular Hemoglobin Concent 32.2 Red Cell Distribution Width 13.9 Platelet Count 188 Mean Platelet Volume 7.8 Neutrophils (%) (Auto) 72.7 Lymphocytes (%) (Auto) 16.7 Monocytes (%) (Auto) 10.1 Eosinophils (%) (Auto) 0.1 Basophils (%) (Auto) 0.4 Neutrophils # (Auto) 10.5 Lymphocytes # (Auto) 2.4 Monocytes # (Auto) 1.5 Eosinophils # (Auto) 0.0 Basophils # (Auto) 0.1 CBC Comment AUTO DIFF Differential Comment AUTO DIFF CONFIRMED Platelet Estimate NORMAL Platelet Morphology Comment NORMAL Result Diagram: 08/10/17 1650 08/10/17 1050 Assessment and Plan Assessment and Plan Mild Coumadin toxicity with anterior epistaxis from ENT point of view. There is no mass on anterior rhinoscopy at bedside and no sign of ENT bleed. No treatment at this time. Can resume Coumadin as indicated. Do not need to hold per ENT. Follow as needed. Discussed Condition With Nursing. Josh Zaragoza MD Aug 11, 2017 12:52
[2017-08-11 13:00] LABS: AUTOMATED NEUTROPHIL # 7.6 TH/MM3 (1.8-7.7); BASOPHIL # 0.1 TH/MM3 (0-0.2); BASOPHIL % 0.7 % (0.0-2.0); EOSINOPHIL # 0.1 TH/MM3 (0-0.4); EOSINOPHIL % 0.6 % (0.0-4.0); HEMATOCRIT 32.1 % (39.0-51.0); HEMO FLAGS DIFF FINAL; LYMPH % 22.5 % (9.0-44.0); LYMPHOCYTE # 2.6 TH/MM3 (1.0-4.8); MEAN CORPUSCULAR HEMOGLOBIN 33.4 PG (27.0-34.0); MONO % 9.8 % (0.0-8.0); NEUT % 66.4 % (16.0-70.0); PLATELET COUNT 198 TH/MM3 (150-450); RED BLOOD COUNT 3.18 MIL/MM3 (4.50-5.90); RED CELL DISTRIBUTION WIDTH 14.1 % (11.6-17.2); WHITE BLOOD COUNT 11.4 TH/MM3 (4.0-11.0)
[2017-08-11 13:16] LABS: INTERNATIONAL NORMALIZED RATIO 2.5 RATIO; PROTHROMBIN TIME - PATIENT 28.3 SEC (9.8-11.6)
[2017-08-11 13:25] LABS: BICARBONATE 22.9 MEQ/L (21.0-32.0); POTASSIUM 3.7 MEQ/L (3.5-5.1)
[2017-08-11] MEDS: SODIUM CHLOR 0.9% 1000 ML INJ 1,000 ML IV SCH (14:02)
[2017-08-11] MEDS ORDERED: SODIUM CHLOR 0.9% 250 ML INJ 250 ML IV ONE (16:45)
--- NOTE | 2017-08-11 17:10 | RADRPT ---
EXAM DATE/TIME: 08/11/2017 16:31 [facility] COMPARISON: CHEST SINGLE AP, August 10, 2017, 10:45. INDICATIONS : Shortness of breath. MEDICAL HISTORY : Stroke. Congestive heart failure. Chronic obstructive pulmonary disease. Atrial fibrillation. SURGICAL HISTORY : None. ENCOUNTER: Subsequent ACUITY: 2 days PAIN SCORE: Non-responsive. LOCATION: chest FINDINGS: The lungs are clear. The heart is minimally enlarged. The pulmonary vascularity is normal. There is n o evidence for infiltrate or failure. The portion of the bony skeleton visualized is unremarkable. CONCLUSION: Compensated cardiomegaly otherwise negative Board Certified Radiologist. This report was verified electronically.
[2017-08-11] MEDS ORDERED: FUROSEMIDE 20 MG/2 ML VIAL IV PUSH SCH (17:30)
[2017-08-11 17:31] LABS: HEMATOCRIT 29.7 % (39.0-51.0); REVIEW FLAG FINAL
[2017-08-12 00:12] LABS: HEMATOCRIT 25.7 % (39.0-51.0); REVIEW FLAG FINAL
[2017-08-12 04:00] VITALS: BP 92/53; PULSE 48; RESP 18; TEMP 97.5; O2SAT 100
[2017-08-12] MEDS ORDERED: METOPROLOL TARTRATE 25 MG TAB PO PRN (05:15)
[2017-08-12] MEDS ORDERED: CHLORHEXIDINE GLUCONATE 2 % 1 PACK (2 CLOTHS) TOPICAL PRN (05:15)
[2017-08-12] MEDS ORDERED: SODIUM CHLORID 0.9% 500 ML IV PRN (05:15)
[2017-08-12] MEDS ORDERED: LACTATED RINGER'S 1000 ML IV PRN (05:15)
[2017-08-12] MEDS ORDERED: POVIDONE IODINE 5% (ANTISEPSIS KIT) 4 APPLICATIONS EACH NARE PRN (05:15)
[2017-08-12] MEDS ORDERED: INSULIN HUMAN REGULAR 1,000 UNITS/10 ML VIAL SQ PRN (05:15)
[2017-08-12 08:00] VITALS: BP 106/54; PULSE 54; PULSE 56; RESP 22; TEMP 97.5; O2SAT 96
[2017-08-12 08:31] LABS: AUTOMATED NEUTROPHIL # 8.5 TH/MM3 (1.8-7.7); BASOPHIL % 0.4 % (0.0-2.0); EOSINOPHIL # 0.1 TH/MM3 (0-0.4); EOSINOPHIL % 0.5 % (0.0-4.0); HEMATOCRIT 25.1 % (39.0-51.0); HEMO FLAGS DIFF FINAL; LYMPH % 15.8 % (9.0-44.0); LYMPHOCYTE # 1.8 TH/MM3 (1.0-4.8); MEAN CELL VOLUME 100.4 FL (80.0-100.0); MEAN CORPUSCULAR HGB CONC 33.8 % (32.0-36.0); MONO % 8.8 % (0.0-8.0); NEUT % 74.5 % (16.0-70.0); PLATELET COUNT 163 TH/MM3 (150-450); RED CELL DISTRIBUTION WIDTH 13.8 % (11.6-17.2); WHITE BLOOD COUNT 11.4 TH/MM3 (4.0-11.0)
[2017-08-12 08:44] LABS: BICARBONATE 21.1 MEQ/L (21.0-32.0); POTASSIUM 3.8 MEQ/L (3.5-5.1)
[2017-08-12 08:45] LABS: INTERNATIONAL NORMALIZED RATIO 1.8 RATIO; PROTHROMBIN TIME - PATIENT 20.8 SEC (9.8-11.6)
[2017-08-12] MEDS: DILTIAZEM HCL 60 MG TAB PO SCH ×4 (09:21→21:14)
[2017-08-12] MEDS: LOSARTAN 50 MG TAB PO SCH (09:22)
[2017-08-12] MEDS: METOPROLOL TARTRATE 50 MG TAB PO SCH ×2 (09:22→21:14)
[2017-08-12] MEDS: SODIUM CHLORIDE 0.9% FLUSH 10 ML FLUSH IV FLUSH SCH ×2 (09:22→21:00)
[2017-08-12] MEDS: PANTOPRAZOLE SODIUM 40 MG VIAL IV PUSH SCH (09:22)
[2017-08-12] MEDS: SODIUM CHLOR 0.9% 1000 ML INJ 1,000 ML IV SCH ×2 (09:22→21:14)
[2017-08-12] MEDS: HYDROCHLOROTHIAZIDE 25 MG TAB PO SCH (09:22)
[2017-08-12] MEDS ORDERED: KETAMINE HCL 500 MG/5 ML VIAL ONE (12:35)
[2017-08-12] MEDS ORDERED: RESP: ALBUTEROL 2.5 MG/3 ML NEB (PRN) ONE (12:38)
--- NOTE | 2017-08-12 13:23 | PD.PROCEDR ---
GI Procedure REFERRING PHYSICIAN Dr. Rodriguez PROCEDURE PERFORMED EGD with biopsy INDICATION FOR PROCEDURE Melena, anemia PROCEDURE: The procedure, risks and benefits were discussed with Mr. Singh and informed consent was obtained. Anesthesia sedated him with Diprivan. He was placed in the left lateral decubitus position. EGD: The Pentax videoscope was introduced through the oropharynx and advanced to the second portion of the duodenum under direct visualization. Retroflexion was performed in the stomach. FINDINGS: Esophagus this was unremarkable and within normal limits The stomach there were superficial erosions noted in the antrum with mild patchy erythema but no ulcerations no blood or bleeding and the rest of the stomach was unremarkable antral biopsy was taken The duodenum this was normal ESTIMATED BLOOD LOSS: None SPECIMENS REMOVED: Antral biopsy COMPLICATIONS: None IMPRESSION: Erosive gastritis PLAN: Await biopsy Recommend Protonix 40 mg daily Avoid NSAIDs and aspirin Monitor labs and transfuse as needed Patient follow-up with GI post discharge Mack Hendricks MD Aug 12, 2017 13:23
--- NOTE | 2017-08-12 14:18 | HHI.PR ---
Subjective Remarks pt is alert talking mostly yes and no very difficult to understand mumbles denies any pain , n/v , , cough , dizziness, BUCKNER, abd pain, dysuria, ches genia abd pain ROS for 10 point system is otherwise unremarkable Objective Objective Results - Vital Signs Date Time Temp Pulse Resp B/P (MAP) Pulse Ox O2 Delivery O2 Flow Rate FiO2 08/12/17 13:40 66 18 110/55 (73) 96 08/12/17 13:30 96.7 76 20 110/64 (79) 94 08/12/17 11:13 52 18 109/55 (73) 96 08/12/17 08:40 Simple Mask 3.00 08/12/17 08:00 97.5 54 22 106/54 (71) 96 08/12/17 04:00 97.5 48 18 92/53 (66) 100 08/12/17 04:00 Simple Mask 3.00 08/12/17 00:00 Simple Mask 3.00 08/11/17 23:00 Simple Mask 3.00 08/11/17 22:35 97.7 68 16 110/55 (73) 98 08/11/17 22:16 99.4 80 25 106/60 98 08/11/17 22:00 99.0 86 25 113/56 100 08/11/17 21:11 99.4 85 30 133/69 100 08/11/17 20:34 100.5 76 22 105/57 (73) 100 08/11/17 19:09 98.9 88 20 152/72 99 08/11/17 18:56 99.9 87 20 132/69 (90) 100 08/11/17 18:52 99.9 87 20 132/69 100 08/11/17 15:45 97.2 88 24 140/86 (104) 94 08/11/17 15:00 56 I/O 08/11/17 08/11/17 08/11/17 08/12/17 08/12/17 08/12/17 07:00 15:00 23:00 07:00 15:00 23:00 Intake Total 472 ml 215 ml 200 ml Output Total 200 ml Balance 272 ml 215 ml 200 ml Intake Oral 240 ml 0 ml FFP 215 ml 215 ml Blood Product IV Normal Saline Flush 17 ml Other 200 ml Output Urine Total 200 ml # Voids 2 1 # Bowel Movements 3 1 Result Diagram: 08/12/17 0724 08/12/17 0724 Other Results Laboratory Tests Test 08/11/17 17:16 08/12/17 00:00 08/12/17 07:24 Hemoglobin 9.8 8.6 8.5 Hematocrit 29.7 25.7 25.1 White Blood Count 11.4 Red Blood Count 2.50 Mean Corpuscular Volume 100.4 Mean Corpuscular Hemoglobin 34.0 Mean Corpuscular Hemoglobin Concent 33.8 Red Cell Distribution Width 13.8 Platelet Count 163 Mean Platelet Volume 8.1 Neutrophils (%) (Auto) 74.5 Lymphocytes (%) (Auto) 15.8 Monocytes (%) (Auto) 8.8 Eosinophils (%) (Auto) 0.5 Basophils (%) (Auto) 0.4 Neutrophils # (Auto) 8.5 Lymphocytes # (Auto) 1.8 Monocytes # (Auto) 1.0 Eosinophils # (Auto) 0.1 Basophils # (Auto) 0.0 CBC Comment DIFF FINAL Differential Comment Prothrombin Time 20.8 Prothromb Time International Ratio 1.8 Blood Urea Nitrogen 62 Creatinine 1.82 Random Glucose 113 Calcium Level 8.4 Sodium Level 145 Potassium Level 3.8 Chloride Level 114 Carbon Dioxide Level 21.1 Anion Gap 10 Estimat Glomerular Filtration Rate 36 Physical Exam Physical Exam GENERAL: The patient is awake, alert, lying on the bed without any apparent distress without Rhino Rocket in the left nostril. VITAL SIGNS: reviewed HEENT: Head is normocephalic. Negative conjunctival injection. No icterus. Mouth unremarkable. no bleeding noted from nose or in mouth/ NECK: Supple. No increased JVD. Negative thyromegaly. Central trachea. LUNGS: Slight decreased air entry bibasilar, otherwise unremarkable. HEART: S1 and S2 audible. I do not hear any S3 gallop. ABDOMEN: Soft. No organomegaly. Positive bowel sounds. EXTREMITIES: No cyanosis or pedal edema appreciated. NEUROLOGIC: Awake and alert. Normal facial features. Normal power and tone. Moving all his extremities. He is trying to talk but he cannot talk just saying yes and no and vry hard to undrstands mumbles. He has a history of aphasia. is at bedside. PSYCHIATRIC: Appropriate mood and affect. A/P Assessment and Plan 1. Epistaxis. 2. Hematuria. 3. High INR. 4. Coagulopathy 5. Atrial fibrillation. 6. Anemia, likely of chronic disease. 7. 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 8. History of hypertension. 9. History of CAD. 10. GI bleed per rectum 12. Hematuria PLAN 1. seen on the floor. 2. Hold Coumadin. 3. Monitor PT and INR. 4. ENT consult is appreciated 5. H&H stable 6. Clear liquids for the time being. 7. Monitor blood pressure. 8. Continue home medications as indicated. 9. Admission GI consult is status post EGD showing gastritis as per RN No report of hematuria labs reviewed. Renal insufficiency. Plan to start IV hydration cautiously. BMP in the morning. dw patient and at bedside Discussed with Agapito Galvez MD Aug 12, 2017 14:18
[2017-08-12] MEDS ORDERED: GLYCOPYRROLATE 1 MG/5 ML SYRINGE IV PUSH ONE (14:49)
[2017-08-12] MEDS ORDERED: LIDOCAINE HCL 1% PF 5 ML AMPULE OTHER ONE (14:49)
[2017-08-12] MEDS ORDERED: ePHEDrine/NS 25 MG/5 ML SYR IV ONE (14:49)
[2017-08-12] MEDS ORDERED: PROPOFOL 200 MG/20 ML AMP IV ONE (14:49)
[2017-08-12 16:00] VITALS: BP 111/53; PULSE 74; RESP 18; TEMP 97.3; O2SAT 94
[2017-08-12 16:25] VITALS: O2SAT 96
[2017-08-12] MEDS ORDERED: DO NOT ADM ANY ANTICOAGULANT DRUGS PRN (16:29)
[2017-08-12 20:00] VITALS: BP 114/54; PULSE 72; PULSE 75; RESP 20; TEMP 97.3; O2SAT 96
[2017-08-13] VITALS (9 sets, daily range): BP systolic 117–126; BP diastolic 55–61; PULSE 53–84; RESP 18–20; TEMP 97–98.2; O2SAT 93–98
[2017-08-13] MEDS: PANTOPRAZOLE SODIUM 40 MG VIAL IV PUSH SCH (07:52)
[2017-08-13] MEDS: LOSARTAN 50 MG TAB PO SCH (07:52)
[2017-08-13] MEDS: HYDROCHLOROTHIAZIDE 25 MG TAB PO SCH (07:53)
[2017-08-13] MEDS: METOPROLOL TARTRATE 50 MG TAB PO SCH ×2 (07:53→20:50)
[2017-08-13] MEDS: DILTIAZEM HCL 60 MG TAB PO SCH ×4 (07:53→20:50)
[2017-08-13] MEDS: SODIUM CHLORIDE 0.9% FLUSH 10 ML FLUSH IV FLUSH SCH ×2 (07:58→20:53)
[2017-08-13 09:52] LABS: HEMATOCRIT 24.7 % (39.0-51.0); MEAN CELL VOLUME 102.2 FL (80.0-100.0); MEAN CORPUSCULAR HEMOGLOBIN 35.1 PG (27.0-34.0); MEAN CORPUSCULAR HGB CONC 34.3 % (32.0-36.0); PLATELET COUNT 168 TH/MM3 (150-450); RED BLOOD COUNT 2.41 MIL/MM3 (4.50-5.90); RED CELL DISTRIBUTION WIDTH 13.9 % (11.6-17.2); REVIEW FLAG FINAL; WHITE BLOOD COUNT 9.9 TH/MM3 (4.0-11.0)
[2017-08-13 10:21] LABS: BICARBONATE 21.8 MEQ/L (21.0-32.0); POTASSIUM 3.5 MEQ/L (3.5-5.1)
--- NOTE | 2017-08-13 10:36 | HHI.PR ---
Subjective Remarks pt is alert talking mostly yes and no very difficult to understand mumbles denies any pain , n/v , , cough , dizziness, BUCKNER, abd pain, dysuria, ches genia abd pain ROS for 10 point system is otherwise unremarkable Are at bedside. As per our and still had a black stool this morning. No diarrhea Objective Objective Results - Vital Signs Date Time Temp Pulse Resp B/P (MAP) Pulse Ox O2 Delivery O2 Flow Rate FiO2 08/13/17 10:13 97 08/13/17 08:20 Room Air 08/13/17 08:20 77 08/13/17 08:00 98.0 77 18 126/58 (80) 97 08/13/17 04:00 Room Air 08/13/17 04:00 98.0 84 20 124/60 (81) 98 08/13/17 00:00 97.8 74 20 117/55 (75) 93 08/13/17 00:00 Room Air 08/12/17 20:00 Room Air 08/12/17 20:00 75 08/12/17 20:00 97.3 72 20 114/54 (74) 96 08/12/17 16:25 96 21 08/12/17 16:00 97.3 74 18 111/53 (72) 94 08/12/17 13:40 66 18 110/55 (73) 96 08/12/17 13:30 96.7 76 20 110/64 (79) 94 08/12/17 11:13 52 18 109/55 (73) 96 I/O 08/12/17 08/12/17 08/12/17 08/13/17 08/13/17 08/13/17 07:00 15:00 23:00 07:00 15:00 23:00 Intake Total 215 ml 450 ml 1018 ml Balance 215 ml 450 ml 1018 ml Intake Oral 0 ml 480 ml IV Total 250 ml 538 ml FFP 215 ml Other 200 ml # Voids 1 2 3 # Bowel Movements 1 2 2 Result Diagram: 08/13/17 0856 08/13/17 0856 Other Results Laboratory Tests Test 08/13/17 08:56 White Blood Count 9.9 Red Blood Count 2.41 Hemoglobin 8.5 Hematocrit 24.7 Mean Corpuscular Volume 102.2 Mean Corpuscular Hemoglobin 35.1 Mean Corpuscular Hemoglobin Concent 34.3 Red Cell Distribution Width 13.9 Platelet Count 168 Mean Platelet Volume 8.5 Blood Urea Nitrogen 52 Creatinine 1.57 Random Glucose 116 Calcium Level 8.2 Sodium Level 143 Potassium Level 3.5 Chloride Level 112 Carbon Dioxide Level 21.8 Anion Gap 9 Estimat Glomerular Filtration Rate 43 Physical Exam Physical Exam GENERAL: The patient is awake, alert, lying on the bed without any apparent distress without Rhino Rocket in the left nostril. VITAL SIGNS: reviewed HEENT: Head is normocephalic. Negative conjunctival injection. No icterus. Mouth unremarkable. no bleeding noted from nose or in mouth/ NECK: Supple. No increased JVD. Negative thyromegaly. Central trachea. LUNGS: Slight decreased air entry bibasilar, otherwise unremarkable. HEART: S1 and S2 audible. I do not hear any S3 gallop. ABDOMEN: Soft. No organomegaly. Positive bowel sounds. EXTREMITIES: No cyanosis or pedal edema appreciated. NEUROLOGIC: Awake and alert. Normal facial features. Normal power and tone. Moving all his extremities. He is trying to talk but he cannot talk just saying yes and no and vry hard to undrstands mumbles. He has a history of aphasia. is at bedside. PSYCHIATRIC: Appropriate mood and affect. A/P Assessment and Plan 1. Epistaxis. 2. Hematuria. 3. High INR. 4. Coagulopathy 5. Atrial fibrillation. 6. Anemia, likely of chronic disease. 7. 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 8. History of hypertension. 9. History of CAD. 10. GI bleed per rectum 12. Hematuria PLAN 1. seen on the floor. 2. Coumadin on hold. As per GI discuss with him on phone okay to restart Coumadin today 3. Monitor PT and INR as outpatient with home health care 4. ENT consult is appreciated okay to restart Coumadin. 5. H&H stable. Improving renal insufficiency 6. Advance diet as tolerated 7. Monitor blood pressure. Stable 8. Continue home medications as indicated. 9. Appreciate GI consult is status post EGD showing erosive gastritis as per maple syrup maker okay to restart Coumadin No report of hematuria labs reviewed. Renal insufficiency improving. Plan to start IV hydration cautiously. BMP in the morning. Restart Coumadin today and observe in-house today. H&H tomorrow if his stable may DC home tomorrow dw patient and at bedside Discussed with RN Agapito Rodriguez MD Aug 13, 2017 10:36
--- NOTE | 2017-08-13 11:58 | HHI.GIFU ---
Subjective Remarks Resting in bed. Tolerating diet. Denies any nausea, vomiting, abdominal pain. Nurse reports that he has had a few "smears" of dark tarry stool. No further nose bleeds. (Samira Dyson) Objective Vitals I&O Vital Signs Date Time Temp Pulse Resp B/P (MAP) Pulse Ox O2 Delivery O2 Flow Rate FiO2 08/13/17 10:13 97 08/13/17 08:20 Room Air 08/13/17 08:20 77 08/13/17 08:00 98.0 77 18 126/58 (80) 97 08/13/17 04:00 Room Air 08/13/17 04:00 98.0 84 20 124/60 (81) 98 08/13/17 00:00 97.8 74 20 117/55 (75) 93 08/13/17 00:00 Room Air 08/12/17 20:00 Room Air 08/12/17 20:00 75 08/12/17 20:00 97.3 72 20 114/54 (74) 96 08/12/17 16:25 96 21 08/12/17 16:00 97.3 74 18 111/53 (72) 94 08/12/17 13:40 66 18 110/55 (73) 96 08/12/17 13:30 96.7 76 20 110/64 (79) 94 I/O 08/12/17 08/12/17 08/12/17 08/13/17 08/13/17 08/13/17 07:00 15:00 23:00 07:00 15:00 23:00 Intake Total 215 ml 450 ml 1018 ml Balance 215 ml 450 ml 1018 ml Intake Oral 0 ml 480 ml IV Total 250 ml 538 ml FFP 215 ml Other 200 ml # Voids 1 2 3 # Bowel Movements 1 2 2 Laboratory Laboratory Tests Test 08/13/17 08:56 White Blood Count 9.9 Red Blood Count 2.41 Hemoglobin 8.5 Hematocrit 24.7 Mean Corpuscular Volume 102.2 Mean Corpuscular Hemoglobin 35.1 Mean Corpuscular Hemoglobin Concent 34.3 Red Cell Distribution Width 13.9 Platelet Count 168 Mean Platelet Volume 8.5 Blood Urea Nitrogen 52 Creatinine 1.57 Random Glucose 116 Calcium Level 8.2 Sodium Level 143 Potassium Level 3.5 Chloride Level 112 Carbon Dioxide Level 21.8 Anion Gap 9 Estimat Glomerular Filtration Rate 43 Imaging Last Impressions Chest X-Ray 08/11/17 0000 Signed Impressions: Service Date/Time: Friday, August 11, 2017 16:31 - CONCLUSION: Compensated cardiomegaly otherwise negative Board Certified Radiologist. This report was verified electronically. MD Physical Exam HEENT: Normocephalic; atraumatic; no jaundice. CHEST: Resp. even/unlabored CARDIAC: Irregular ABDOMEN: Soft, nondistended, nontender; no hepatosplenomegaly; bowel sounds are present in all four quadrants. EXTREMITIES: No clubbing, cyanosis, or edema. SKIN: Normal; no rash; no jaundice. SYSTEMS TEST TECHNICIAN: No focal deficits; alert and oriented to self and place (Samira Dyson) Assessment and Plan Plan ASSESSMENT: - Melena, questionable GIB. Pt on Coumadin for Afib and presented to the ER for significant epistaxis. INR 3.1. His coumadin is on hold, s/p rhino rocket yesterday. Pt came in with nasal bleeding and had a few melanotic stools. S/P EGD (08/12/17)---> Erosive gastritis. Pathology pending. Nurse reports that he has had a few "smears" of black stool, no further nose bleeds and no dontrell red blood. 8.03/17.7. - Anemia, blood loss. S/P 2 units PRBC. 8.03/17.7. - Epistaxis. S/P ENT eval. No further episodes per nurse. - Coagulopathy. Coumadin at home. INR - Atrial fibrillation, on coumadin at home. - CAD, COPD per attending PLAN: - RADHA - Await pathology - Protonix 40mg po daily - Avoid NSAIDs and aspirin - Monitor labs - Supportive care - Further recommendations to follow based on results of above - PT seen and examined by Dr. Hendricks and myself and this note is written on his behalf (Samira Dyson) Physician Comments Patient seen and examined Agree with above Continue with current supportive care Monitor labs Avoid NSAIDs and aspirin and continue with PPI Okay to resume anticoagulation We will sign off (Mack Hendricks MD) Samira Dyson Aug 13, 2017 11:58 Mack Hendricks MD Aug 13, 2017 20:52
[2017-08-13] MEDS: SODIUM CHLOR 0.9% 1000 ML INJ 1,000 ML IV SCH (12:22)
[2017-08-13] MEDS: WARFARIN SOD 5 MG TAB PO SCH (17:26)
[2017-08-14] VITALS (8 sets, daily range): BP systolic 106–150; BP diastolic 51–62; PULSE 44–61; RESP 18–20; TEMP 97.2–100.2; O2SAT 94–100
[2017-08-14] MEDS: SODIUM CHLOR 0.9% 1000 ML INJ 1,000 ML IV SCH ×3 (02:30→17:08)
[2017-08-14 05:39] LABS: HEMATOCRIT 23.9 % (39.0-51.0); MEAN CELL VOLUME 103.4 FL (80.0-100.0); MEAN CORPUSCULAR HEMOGLOBIN 34.2 PG (27.0-34.0); MEAN CORPUSCULAR HGB CONC 33.1 % (32.0-36.0); PLATELET COUNT 161 TH/MM3 (150-450); RED BLOOD COUNT 2.31 MIL/MM3 (4.50-5.90); RED CELL DISTRIBUTION WIDTH 13.9 % (11.6-17.2); REVIEW FLAG FINAL; WHITE BLOOD COUNT 8.8 TH/MM3 (4.0-11.0)
[2017-08-14 05:41] LABS: INTERNATIONAL NORMALIZED RATIO 1.4 RATIO; PROTHROMBIN TIME - PATIENT 15.6 SEC (9.8-11.6)
[2017-08-14 05:56] LABS: BICARBONATE 21.1 MEQ/L (21.0-32.0); POTASSIUM 3.5 MEQ/L (3.5-5.1)
[2017-08-14] MEDS: SODIUM CHLORIDE 0.9% FLUSH 10 ML FLUSH IV FLUSH SCH ×2 (07:41→20:21)
[2017-08-14] MEDS: METOPROLOL TARTRATE 50 MG TAB PO SCH ×2 (08:24→20:21)
[2017-08-14] MEDS: PANTOPRAZOLE SOD 40 MG DELAYED RELEASE TAB PO SCH (08:24)
[2017-08-14] MEDS: LOSARTAN 50 MG TAB PO SCH (08:24)
[2017-08-14] MEDS: HYDROCHLOROTHIAZIDE 25 MG TAB PO SCH (08:24)
[2017-08-14] MEDS: DILTIAZEM HCL 60 MG TAB PO SCH ×4 (08:28→20:20)
--- NOTE | 2017-08-14 08:41 | HHI.PR ---
Subjective Remarks 77yr old male seen and examined today. pt is awake, responds appropriately by saying yes or no. Difficult to understand as he mumbles denies any pain , n/v/diarrhea , , cough , dizziness, BUCKNER, abd pain, dysuria, chest pain. Had a temp of 100.2: axillary temp at 4 am today. Rpt one after 4hrs: 97.7. ROS for 10 point system is otherwise unremarkable Objective Objective Results - Vital Signs Date Time Temp Pulse Resp B/P (MAP) Pulse Ox O2 Delivery O2 Flow Rate FiO2 08/14/17 04:00 Nasal Cannula 2.00 08/14/17 04:00 100.2 54 20 112/55 (74) 96 08/14/17 00:00 Nasal Cannula 2.00 08/14/17 00:00 97.7 54 20 121/59 (79) 95 08/13/17 20:00 54 08/13/17 19:00 Nasal Cannula 2.00 08/13/17 17:55 97 21 08/13/17 16:00 97.0 60 20 120/61 (80) 97 08/13/17 12:00 98.2 53 20 117/57 (77) 98 08/13/17 10:13 97 I/O 08/13/17 08/13/17 08/13/17 08/14/17 08/14/17 08/14/17 07:00 15:00 23:00 07:00 15:00 23:00 Intake Total 2366 ml 1283 ml Balance 2366 ml 1283 ml Intake Oral 720 ml IV Total 1646 ml 1283 ml # Voids 3 6 # Bowel Movements 2 3 Result Diagram: 08/14/17 0452 08/14/17 0452 Other Results Laboratory Tests Test 08/13/17 08:56 08/14/17 04:52 White Blood Count 9.9 8.8 Red Blood Count 2.41 2.31 Hemoglobin 8.5 7.9 Hematocrit 24.7 23.9 Mean Corpuscular Volume 102.2 103.4 Mean Corpuscular Hemoglobin 35.1 34.2 Mean Corpuscular Hemoglobin Concent 34.3 33.1 Red Cell Distribution Width 13.9 13.9 Platelet Count 168 161 Mean Platelet Volume 8.5 8.8 Blood Urea Nitrogen 52 49 Creatinine 1.57 1.52 Random Glucose 116 106 Calcium Level 8.2 8.5 Sodium Level 143 145 Potassium Level 3.5 3.5 Chloride Level 112 114 Carbon Dioxide Level 21.8 21.1 Anion Gap 9 10 Estimat Glomerular Filtration Rate 43 45 Prothrombin Time 15.6 Prothromb Time International Ratio 1.4 ROS General: Fatigue, Weakness HEENT: No: Sore Throat, Dysphagia, Other Cardiac: No: Chest Pain, Edema, Palpitations, Other Pulmonary: No: Cough, SOB, Wheezing, Other GI: No: Abdominal Pain, BM, Diarrhea, N/V, Other /CLOTHES MARKER: No: Dysuria, Urgency, Other Neuro/MS: No: Lightheaded, Confusion, Other Physical Exam Physical Exam PHYSICAL EXAMINATION GENERAL: The patient is awake, alert, lying on the bed without any apparent distress without Rhino Rocket in the left nostril. VITAL SIGNS: reviewed HEENT: Head is normocephalic. Negative conjunctival injection. No icterus. Mouth unremarkable. no bleeding noted from nose or in mouth NECK: Supple. No increased JVD. Negative thyromegaly. Central trachea. LUNGS: Slight decreased air entry bibasilar, otherwise unremarkable. HEART: S1 and S2 audible. No S3 gallop. ABDOMEN: Soft. No organomegaly. Positive bowel sounds. EXTREMITIES: No cyanosis or pedal edema appreciated. NEUROLOGIC: Awake and alert. Normal facial features. Normal power and tone. Moving all his extremities. He is trying to talk but he cannot talk just saying yes and no and very hard to understand, mumbles. He has a history of aphasia. PSYCHIATRIC: Appropriate mood and affect. A/P Assessment and Plan Assessment and Plan 1. Epistaxis. 2. Hematuria. 3. High INR. 4. Coagulopathy 5. Atrial fibrillation. 6. ?Fever. 7. Anemia, likely of chronic disease. 8. 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 9. History of hypertension. 10. History of CAD. 11. GI bleed per rectum 12. Hematuria PLAN 1. Seen on the floor. No report of hematuria: labs reviewed. Renal insufficiency improving. 2. As per GI discussion yesterday patient has been restarted on Coumadin. 3. INR: 1.4: will continue current dose of coumadin at 5mg. 4. ENT consult is appreciated: okay to restart Coumadin. 5. Slight decrease in H&H: monitor. Improving renal insufficiency 6. Advance diet as tolerated 7. Monitor blood pressure: Stable 8. Started home medications as indicated. 9. Appreciate GI consult: status post EGD showing erosive gastritis as per property accountant 10.Will monitor patient today: ? fever. 11.CBC, BMP, INR in am. 12.Tylenol prn for fever. 13.IV hydration cautiously. Probable dc in am. dw patient. Discussed with Britni Bradley MD Aug 14, 2017 08:41
[2017-08-14] MEDS: WARFARIN SOD 5 MG TAB PO SCH (17:08)
[2017-08-15] VITALS (9 sets, daily range): BP systolic 114–135; BP diastolic 55–65; PULSE 54–72; RESP 18–20; TEMP 97.2–98.2; O2SAT 94–99
[2017-08-15] MEDS: LOSARTAN 50 MG TAB PO SCH (08:34)
[2017-08-15] MEDS: HYDROCHLOROTHIAZIDE 25 MG TAB PO SCH (08:34)
[2017-08-15] MEDS: PANTOPRAZOLE SOD 40 MG DELAYED RELEASE TAB PO SCH (08:35)
[2017-08-15] MEDS: DILTIAZEM HCL 60 MG TAB PO SCH ×4 (08:35→21:00)
[2017-08-15] MEDS: SODIUM CHLORIDE 0.9% FLUSH 10 ML FLUSH IV FLUSH SCH ×2 (08:35→20:56)
[2017-08-15] MEDS: METOPROLOL TARTRATE 50 MG TAB PO SCH ×2 (08:35→20:55)
[2017-08-15] MEDS: SODIUM CHLOR 0.9% 1000 ML INJ 1,000 ML IV SCH ×2 (08:43→23:33)
[2017-08-15 09:06] LABS: HEMATOCRIT 23.6 % (39.0-51.0); MEAN CELL VOLUME 103.8 FL (80.0-100.0); MEAN CORPUSCULAR HEMOGLOBIN 34.4 PG (27.0-34.0); MEAN CORPUSCULAR HGB CONC 33.1 % (32.0-36.0); PLATELET COUNT 160 TH/MM3 (150-450); RED BLOOD COUNT 2.27 MIL/MM3 (4.50-5.90); RED CELL DISTRIBUTION WIDTH 13.8 % (11.6-17.2); REVIEW FLAG FINAL; WHITE BLOOD COUNT 6.7 TH/MM3 (4.0-11.0)
[2017-08-15 09:13] LABS: INTERNATIONAL NORMALIZED RATIO 1.5 RATIO; PROTHROMBIN TIME - PATIENT 16.7 SEC (9.8-11.6)
[2017-08-15 09:25] LABS: BICARBONATE 20.7 MEQ/L (21.0-32.0); POTASSIUM 3.5 MEQ/L (3.5-5.1)
--- NOTE | 2017-08-15 10:38 | HHI.PR ---
Subjective Remarks 77yr old male seen and examined today. pt is awake, responds appropriately by saying yes or no. Difficult to understand as he mumbles denies any pain , n/v/diarrhea , , cough , dizziness, BUCKNER, abd pain, dysuria, chest pain. ROS for 10 point system is otherwise unremarkable Objective Objective Results - Vital Signs Date Time Temp Pulse Resp B/P (MAP) Pulse Ox O2 Delivery O2 Flow Rate FiO2 08/15/17 10:30 96 Nasal Cannula 2.00 08/15/17 09:45 Nasal Cannula 2.00 08/15/17 08:00 97.6 69 20 130/62 (84) 96 08/15/17 08:00 54 08/15/17 04:00 Nasal Cannula 2.00 08/15/17 04:00 97.2 60 18 117/57 (77) 97 08/15/17 00:00 98.2 72 18 134/60 (84) 97 08/15/17 00:00 Nasal Cannula 2.00 08/14/17 22:48 Nasal Cannula 3.00 08/14/17 20:14 54 08/14/17 20:00 Nasal Cannula 2.00 08/14/17 20:00 97.9 56 18 113/55 (74) 99 08/14/17 16:00 97.2 55 18 121/59 (79) 100 08/14/17 15:06 Nasal Cannula 3.00 21 08/14/17 12:00 97.2 49 20 106/51 (69) 100 I/O 08/14/17 08/14/17 08/14/17 08/15/17 08/15/17 08/15/17 07:00 15:00 23:00 07:00 15:00 23:00 Intake Total 1283 ml 720 ml 240 ml 1000 ml Output Total 900 ml 900 ml Balance 1283 ml -180 ml -660 ml 1000 ml Intake Oral 720 ml 240 ml IV Total 1283 ml 1000 ml Output Urine Total 900 ml 900 ml # Bowel Movements 1 0 Result Diagram: 08/15/1735 08/15/17 0735 Other Results Laboratory Tests Test 08/15/17 07:35 White Blood Count 6.7 Red Blood Count 2.27 Hemoglobin 7.8 Hematocrit 23.6 Mean Corpuscular Volume 103.8 Mean Corpuscular Hemoglobin 34.4 Mean Corpuscular Hemoglobin Concent 33.1 Red Cell Distribution Width 13.8 Platelet Count 160 Mean Platelet Volume 8.6 Prothrombin Time 16.7 Prothromb Time International Ratio 1.5 Blood Urea Nitrogen 36 Creatinine 1.27 Random Glucose 87 Calcium Level 8.4 Sodium Level 144 Potassium Level 3.5 Chloride Level 115 Carbon Dioxide Level 20.7 Anion Gap 8 Estimat Glomerular Filtration Rate 55 ROS General: No: Fatigue, Weakness, Other HEENT: No: Sore Throat, Dysphagia, Other Cardiac: No: Chest Pain, Edema, Palpitations, Other Pulmonary: No: Cough, SOB, Wheezing, Other GI: No: Abdominal Pain, BM, Diarrhea, N/V, Other /CHIEF MECHANICAL ENGINEER: No: Dysuria, Urgency, Other Neuro/MS: No: Lightheaded, Confusion, Other Psych: No: Anxiety, Depression, Other Physical Exam Physical Exam PHYSICAL EXAMINATION GENERAL: The patient is awake, alert, lying on the bed without any apparent distress without Rhino Rocket in the left nostril. VITAL SIGNS: reviewed HEENT: Head is normocephalic. Negative conjunctival injection. No icterus. Mouth unremarkable. no bleeding noted from nose or in mouth NECK: Supple. No increased JVD. Negative thyromegaly. Central trachea. LUNGS: Slight decreased air entry bibasilar, otherwise unremarkable. HEART: S1 and S2 audible. No S3 gallop. ABDOMEN: Soft. No organomegaly. Positive bowel sounds. EXTREMITIES: No cyanosis or pedal edema appreciated. NEUROLOGIC: Awake and alert. Normal facial features. Normal power and tone. Moving all his extremities. He is trying to talk but he cannot talk just saying yes and no and very hard to understand, mumbles. He has a history of aphasia. PSYCHIATRIC: Appropriate mood and affect. A/P Assessment and Plan Assessment and Plan 1. Epistaxis. 2. Hematuria. 3. High INR. 4. Coagulopathy 5. Atrial fibrillation. 6. ?Fever. 7. Anemia, likely of chronic disease. 8. 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 9. History of hypertension. 10. History of CAD. 11. GI bleed per rectum 12. Hematuria PLAN 1. Seen on the floor. No report of hematuria: labs reviewed. Renal insufficiency improving. 2. As per discussion with GI patient has been restarted on Coumadin. 3. INR: 1.5: will give an additional dose of coumadin 2.5mg today. Total: 7.5mg. Check INR in am. 4. ENT consult is appreciated: okay to restart Coumadin. 5. H&H: stable. Improving renal insufficiency 6. Advance diet as tolerated 7. Monitor blood pressure: Stable 8. Started home medications as indicated. 9. Appreciate GI consult: status post EGD showing erosive gastritis as per mortgage loan processor 10.H/H, INR in am. 12.Tylenol prn for fever. 13.IV hydration cautiously. Probable dc in am. dw patient. Discussed with Britni Bradley MD Aug 15, 2017 10:38
[2017-08-15] MEDS ORDERED: WARFARIN SOD 2.5 MG TAB PO ONE (11:30)
[2017-08-15] MEDS: WARFARIN SOD 5 MG TAB PO SCH (17:58)
[2017-08-16] VITALS (13 sets, daily range): BP systolic 119–150; BP diastolic 57–65; PULSE 51–84; RESP 16–20; TEMP 97.1–98.1; O2SAT 92–100
[2017-08-16 08:19] LABS: INTERNATIONAL NORMALIZED RATIO 1.9 RATIO; PROTHROMBIN TIME - PATIENT 21.2 SEC (9.8-11.6)
[2017-08-16] MEDS: LOSARTAN 50 MG TAB PO SCH (08:50)
[2017-08-16] MEDS: PANTOPRAZOLE SOD 40 MG DELAYED RELEASE TAB PO SCH (08:51)
[2017-08-16] MEDS: HYDROCHLOROTHIAZIDE 25 MG TAB PO SCH (08:51)
[2017-08-16] MEDS: DILTIAZEM HCL 60 MG TAB PO SCH ×4 (08:51→20:23)
[2017-08-16] MEDS: METOPROLOL TARTRATE 50 MG TAB PO SCH ×2 (08:51→20:23)
[2017-08-16] MEDS: SODIUM CHLORIDE 0.9% FLUSH 10 ML FLUSH IV FLUSH SCH ×2 (08:51→20:23)
[2017-08-16] MEDS ORDERED: MAGNESIUM SULFATE 1 GM PREMIX 100 ML IV STA (12:02)
--- NOTE | 2017-08-16 12:02 | HHI.PR ---
Subjective Interval History Alert, looking around, answering questions with nodding his head, does not look in any distress, denies pain, no obvious bleeding Review of Systems Constitutional Constitutional Remarks 10 SYSTEMS REVIEWED AND NEGATIVE EXCEPT FOR THE ABOVE BUT NOT RELIABLE Vitals/Results Vital Signs Vital Signs Date Time Temp Pulse Resp B/P (MAP) Pulse Ox O2 Delivery O2 Flow Rate FiO2 08/16/17 09:00 Nasal Cannula 2.00 08/16/17 08:50 74 08/16/17 08:28 98 Nasal Cannula 2.00 08/16/17 08:08 84 08/16/17 08:00 98.1 78 19 129/62 (84) 92 08/16/17 04:00 Nasal Cannula 2.00 08/16/17 04:00 97.6 61 20 141/63 (89) 98 08/16/17 00:00 Nasal Cannula 2.00 08/16/17 00:00 97.4 65 18 122/57 (78) 96 08/15/17 22:12 94 21 08/15/17 20:00 Nasal Cannula 2.00 08/15/17 20:00 97.9 72 18 135/65 (88) 99 08/15/17 19:58 64 08/15/17 16:00 97.4 62 20 128/65 (86) 98 08/15/17 12:00 97.4 68 18 114/55 (74) 99 CBC/BMP: 08/16/17 0655 08/15/17 0735 Lab Results Laboratory Tests Test 08/16/17 06:55 Hemoglobin 7.9 GM/DL Prothrombin Time 21.2 SEC Prothromb Time International Ratio 1.9 RATIO Physical Exam General General Appearance: Well Developed, No Acute Distress, Comfortable Eyes Eye Exam: Pupils Reactive Ears & Nose Ears & Nose Exam: Nasal Mucosa Mcintire Throat Throat Exam: Oral Mucosa Mcintire & Moist Neck Neck Exam: Trachea Midline Pulmonary Resp Exam: Crackles, Rhonchi Cardiology CV Exam: Irregular Gastrointestinal/Abdomen GI Exam: Soft, Non-Tender, Bowel Sounds Present Musculoskeletal MS Remarks Aphasic Integumentary Skin Exam: Warm, Dry Neurologic Neuro Exam: Alert, Awake Psychiatric Psych Exam: Appropriate Responses VTE Prophylaxis VTE Prophylaxis Meds: Coumadin Assessment/Plan Assessment/Plan Assessment 18 beats Nonsustained ventricular tachycardia versus SVT with aberrancy this morning, Chest pain with the above Severe anemia Wheezing Admitted with epistaxis, now resolved Admitted with elevated INR, on Coumadin Reported fever History of anemia, atrial fibrillation, stroke with aphasia, hypertension, CAD, rectal bleed Management Serial CKs and troponin Check magnesium level and keep above 2 Check potassium level and keep between 4 and 5 2-D echocardiogram Consult cardiology Chest x-ray Transfuse 1 unit of packed red blood cells Proton pump inhibitor Follow INR level and keep between 2 and 3 Hold Coumadin if there is evidence of active bleeding at this time Discussed with patient, he nods answering questions, unclear if he understood Discussed with nurse several times today Maria Del Rosario Cornejo MD Aug 16, 2017 12:02
[2017-08-16] MEDS: POTASSIUM CHLORIDE 10 MEQ CONTROLLED RELEASE TAB PO SCH ×2 (12:50→20:23)
[2017-08-16 12:53] LABS: CKMB 2.8 NG/ML (0.5-3.6)
[2017-08-16 13:12] LABS: BICARBONATE 22.2 MEQ/L (21.0-32.0); MAGNESIUM 1.9 MG/DL (1.5-2.5); POTASSIUM 3.5 MEQ/L (3.5-5.1)
[2017-08-16] MEDS: SODIUM CHLOR 0.9% 1000 ML INJ 1,000 ML IV SCH (13:53)
--- NOTE | 2017-08-16 15:26 | MB ---
cc: GUANAKITO CINTRON DO DATE OF CONSULTATION: August 16, 2017 REASON FOR CONSULTATION Wide complex tachycardia. HISTORY OF PRESENT ILLNESS Dimple Singh is a pleasant 77-year-old male who originally presented on August 10, 2017 due to a nosebleed. Apparently, the patient started with a nosebleed and was coughing up blood. A rhino rocket was placed and he was also noted to have hematuria while in the emergency room. INR was 3.1 at that time. He has been worked up from this standpoint and restarted on his coumadin. They were awaiting for his INR to be back to goal range when it appears today he had 18 beat of wide complex tachycardia. It is difficult to ascertain from the patient if he was truly symptomatic during this because he really only shakes his head yes and no, but unsure if he really understands what exactly is going on at the time. In seeing him he is currently hemodynamically and cardiovascularly stable. PAST MEDICAL HISTORY 1. Hypertension. 2. Atrial fibrillation. 3. COPD. PAST SURGICAL HISTORY 1. Cardiac catheterization with stent placement at an unknown time, in an unknown artery. 2. Left leg biopsy. ALLERGIES NO KNOWN DRUG ALLERGIES. MEDICATIONS 1. Coumadin 5 mg on all days except for Wednesday which he takes 6 mg. 2. Lopressor 50 mg b.i.d. 3. Losartan/hydrochlorothiazide 100/25 daily. FAMILY HISTORY No known history of sudden cardiac within the family. SOCIAL HISTORY The patient does not have a history of tobacco or alcohol abuse. REVIEW OF SYSTEMS 14-systems were reviewed including osteopathic pertinent positives and negatives as above, otherwise negative. PHYSICAL EXAMINATION VITAL SIGNS: Temperature 98.1, heart rate 78, blood pressure 129/62, respirations 19, pulse ox 98% on 2 liters. GENERAL: The patient appears well, in no acute distress. Alert and awake. HEENT: Extraocular muscles intact. Mucous membranes moist. NECK: Supple. No JVD at 45 degrees. No carotid bruits heard bilaterally. Carotid upstroke is brisk in nature. HEART: Heart is irregularly, irregular. Positive first and second heart sounds with no murmurs, gallops or rubs. LUNGS: Lungs have decreased breath sounds bilaterally with no overt wheezes, rales or rhonchi. ABDOMEN: Soft, nontender, nondistended. No organomegaly noted. EXTREMITIES: Show no clubbing, cyanosis or edema. Femoral and distal pulses intact bilaterally. NEUROLOGIC: Neurologically he does not appear to have focal deficits. SKIN: Warm, dry and intact. OSTEOPATHIC: No kyphoscoliosis, lordosis or paraspinal tender points. LABORATORY FINDINGS Hemoglobin 7.8, hematocrit 23.6, platelets 160. INR 1.9. Potassium 3.5, BUN 36, creatinine 1.27. IMPRESSION 1. Wide complex tachycardia, possibly ventricular tachycardia versus supraventricular tachycardia with aberrancy. 2. Atrial fibrillation. 3. Epistaxis. 4. Hematuria. 5. History of hypertension. 6. History of COPD. 7. History of atrial fibrillation. 8. Coronary artery disease. RECOMMENDATIONS 1. Mr. Singh appears to have a wide complex tachycardia and is difficult to ascertain at this time whether this is truly ventricular tachycardia versus SVT with aberrancy. 2. I am unable at this time to figure out if he has symptoms from this as he tells me he has no chest pain or shortness of breath but told Dr. Cornejo that he did have chest pain during it. 3. He is currently cardiovascularly and hemodynamically stable. 4. We will check an echo to look at his overall left ventricular function, cardiac structure and possible valvulopathies. 5. Will check electrolytes and replete these as necessary. 6. We will plan on checking troponins and depending on if elevated may consider ischemic evaluation. Thank you for allowing me to see Dimple Singh, if there are any questions, please do not hesitate to call. Guanakito Cintron DO VGP/TLL /2:22 PM /2:57 PM
--- NOTE | 2017-08-16 15:56 | ECHRPT ---
Indication: ATRIAL FIB/FLUTTER CONCLUSIONS The left ventricular systolic function is normal with an estimated ejection fraction in the range of 55-60%. Mild concentric left ventricular hypertrophy. [id number] mitral valve regurgitation. Moderate aortic valve stenosis (velocity 3.18, peak 41, mean 20, AVA1.1). There is mild tricuspid valve regurgitation. BP: 141 / 63 HR: Rhythm: Atrial fibrillation, Atrial flut ter, PVCs MEASUREMENTS (Male / Female) Normal Values Technical Quality:Fair 2D ECHO LV Diastolic Diameter PLAX 4.8 cm 4.2 - 5.9 / 3.9 - 5.3 cm LV Systolic Diameter PLAX 3.7 cm IVS Diastolic Thickness 1.2 cm 0.6 - 1.0 / 0.6 - 0.9 cm LVPW Diastolic Thickness 1.2 cm 0.6 - 1.0 / 0.6 - 0.9 cm LV Relative Wall Thickness 0.5 LVOT Diameter 2.3 cm Aortic Root Diameter 4.4 cm LA Systolic Diameter LX 3.6 cm 3.0 - 4.0 / 2.7 - 3.8 cm M-MODE AV Cusp Separation MM 1.1 cm DOPPLER AV Peak Velocity 276.3 cm/s AV Peak Gradient 30.5 mmHg AV Mean Gradient 18.3 mmHg AV Velocity Time Integral 59.3 cm LVOT Peak Velocity 61.1 cm/s LVOT Peak Gradient 1.5 mmHg LVOT Velocity Time Integral 13.2 cm AV Area Cont Eq vti 0.9 cm AV Area Cont Eq pk 0.9 cm Mitral E Point Velocity 121.0 cm/s LV E' Lateral Velocity 17.9 cm/s Mitral E to LV E' Lateral Ratio 6.8 LV E' Septal Velocity 9.4 cm/s Mitral E to LV E' Septal Ratio 12.9 TR Peak Velocity 284.0 cm/s TR Peak Gradient 32.3 mmHg Right Atrial Pressure 10.0 mmHg Pulmonary Artery Systolic Pressu 42.3 mmHg Right Ventricular Systolic Press 42.3 mmHg PV Peak Velocity 62.4 cm/s PV Peak Gradient 1.6 mmHg FINDINGS LEFT VENTRICLE Normal left ventricular size. Mild concentric left ventricular hypertrophy. Normal left ventricular size. The left ventricular systolic function is normal with an estimated ejection fraction in the range of 55-60%. RIGHT VENTRICLE The right ventricle is mildly dilated. LEFT ATRIUM The left atrial size is [id number] dilated. RIGHT ATRIUM The right atrial size is normal. ATRIAL SEPTUM Normal atrial septal thickness. AORTA The aortic root and proximal ascending aorta are normal in size on limited imaging. MITRAL VALVE Structurally normal mitral valve. [id number] mitral valve regurgitation. Mild mitral annular calcification. No mitral valve stenosis. AORTIC VALVE Diffuse calcification of the aortic valve. Trileaflet aortic valve. No aortic valve regurgitation. Moderate aortic valve stenosis (velocity 3.18, peak 41, mean 20, AVA1.1) TRICUSPID VALVE Structurally normal tricuspid valve. There is mild tricuspid valve regurgitation. The estimated pulmonary arterial pressure is 42.3 mmHg. PULMONARY VALVE The pulmonary valve is not well visualized. PERICARDIUM No pericardial effusion. Guanakito Sosa DO (Electronically Signed) Final Date:16 August 2017 15:55
[2017-08-16] MEDS: WARFARIN SOD 5 MG TAB PO SCH (16:15)
[2017-08-16 16:16] LABS: CREATINE KINASE 118 U/L (39-308)
[2017-08-16 16:28] LABS: CKMB 1.5 NG/ML (0.5-3.6)
[2017-08-16 23:05] LABS: CREATINE KINASE 101 U/L (39-308)
[2017-08-16 23:17] LABS: CKMB 1.2 NG/ML (0.5-3.6)
[2017-08-17] VITALS (8 sets, daily range): BP systolic 122–162; BP diastolic 57–72; PULSE 54–85; RESP 16–20; TEMP 97–99.3; O2SAT 94–98
[2017-08-17] MEDS: SODIUM CHLOR 0.9% 1000 ML INJ 1,000 ML IV SCH ×2 (03:30→17:46)
[2017-08-17] MEDS: SODIUM CHLORIDE 0.9% FLUSH 10 ML FLUSH IV FLUSH SCH ×2 (09:00→20:19)
[2017-08-17] MEDS: DILTIAZEM HCL 60 MG TAB PO SCH ×4 (10:02→20:19)
[2017-08-17] MEDS: METOPROLOL TARTRATE 50 MG TAB PO SCH ×2 (10:02→20:19)
[2017-08-17] MEDS: POTASSIUM CHLORIDE 10 MEQ CONTROLLED RELEASE TAB PO SCH ×2 (10:02→20:19)
[2017-08-17] MEDS: LOSARTAN 50 MG TAB PO SCH (10:03)
[2017-08-17] MEDS: HYDROCHLOROTHIAZIDE 25 MG TAB PO SCH (10:03)
[2017-08-17] MEDS: PANTOPRAZOLE SOD 40 MG DELAYED RELEASE TAB PO SCH (10:03)
--- NOTE | 2017-08-17 13:55 | HHI.PR ---
Subjective Interval History Alert, verbal, mildly confused, seen in the presence of his , Review of Systems Constitutional Constitutional Remarks 10 SYSTEMS REVIEWED AND NEGATIVE EXCEPT FOR THE ABOVE BUT NOT RELIABLE Vitals/Results Vital Signs Vital Signs Date Time Temp Pulse Resp B/P (MAP) Pulse Ox O2 Delivery O2 Flow Rate FiO2 08/17/17 12:00 98.3 73 20 132/63 (86) 96 08/17/17 08:00 98.7 85 18 122/57 (78) 98 08/17/17 04:00 98.1 77 20 146/65 (92) 96 08/17/17 04:00 Nasal Cannula 2.00 08/17/17 00:00 Nasal Cannula 2.00 08/17/17 00:00 98.4 60 16 155/70 (98) 95 08/16/17 20:18 58 08/16/17 20:00 98.0 65 20 119/57 (77) 93 08/16/17 20:00 Nasal Cannula 2.00 08/16/17 17:37 54 08/16/17 16:28 97.5 51 16 125/59 100 08/16/17 16:07 97.3 53 16 140/62 97 08/16/17 16:00 97.1 65 19 136/64 (88) 98 08/16/17 16:00 Nasal Cannula 2.00 CBC/BMP: 08/16/17 0655 08/16/17 1125 Lab Results Laboratory Tests Test 08/16/17 15:04 08/16/17 22:02 Total Creatine Kinase 118 U/L 101 U/L Creatine Kinase MB 1.5 NG/ML 1.2 NG/ML Troponin I 0.22 NG/ML 0.22 NG/ML Phosphorus Level 2.3 MG/DL Magnesium Level 2.0 MG/DL Physical Exam General General Appearance: Well Developed, No Acute Distress, Comfortable Eyes Eye Exam: Pupils Reactive Ears & Nose Ears & Nose Exam: Nasal Mucosa [place] Throat Throat Exam: Oral Mucosa [place] & Moist Neck Neck Exam: Trachea Midline Pulmonary Resp Exam: Crackles, Rhonchi Cardiology CV Exam: Irregular Gastrointestinal/Abdomen GI Exam: Soft, Non-Tender, Bowel Sounds Present Musculoskeletal MS Remarks Aphasic Integumentary Skin Exam: Warm, Dry Neurologic Neuro Exam: Alert, Awake Psychiatric Psych Exam: Appropriate Responses VTE Prophylaxis VTE Prophylaxis Meds: Coumadin Assessment/Plan Assessment/Plan Assessment Helicobacter pylori gastritis 18 beats Nonsustained ventricular tachycardia versus SVT with aberrancy on 08/16, Severe anemia Transfused 1 unit of packed red blood cells Wheezing, improved Admitted with epistaxis, now resolved Admitted with elevated INR, on Coumadin Reported fever History of anemia, atrial fibrillation, stroke with aphasia, hypertension, CAD, rectal bleed Management Discussed with GI, they will put orders regarding treatment for H. pylori 2-D echocardiogram Discussed with cardiology Proton pump inhibitor Follow INR level and keep between 2 and 3 Hold Coumadin if there is evidence of active bleeding at this time Discussed with patient's at length. She now says that he has polymyositis and she wants to know the prognosis of that She is recommended to see the advice of a innersole fitter after discharge Discussed with nurse Follow hemoglobin levels Maria Del Rosario Cornejo MD Aug 17, 2017 13:55
--- NOTE | 2017-08-17 16:40 | HHI.GIFU ---
Subjective Remarks Pt resting in bed. Indicates he is eating well. No nausea or abd pain. (Sandra Ruby) Objective Vitals I&O Vital Signs Date Time Temp Pulse Resp B/P (MAP) Pulse Ox O2 Delivery O2 Flow Rate FiO2 08/17/17 12:00 98.3 73 20 132/63 (86) 96 08/17/17 11:00 84 08/17/17 11:00 94 Room Air 08/17/17 08:00 98.7 85 18 122/57 (78) 98 08/17/17 04:00 98.1 77 20 146/65 (92) 96 08/17/17 04:00 Nasal Cannula 2.00 08/17/17 00:00 Nasal Cannula 2.00 08/17/17 00:00 98.4 60 16 155/70 (98) 95 08/16/17 20:18 58 08/16/17 20:00 98.0 65 20 119/57 (77) 93 08/16/17 20:00 Nasal Cannula 2.00 08/16/17 17:37 54 I/O 08/16/17 08/16/17 08/16/17 08/17/17 08/17/17 08/17/17 07:00 15:00 23:00 07:00 15:00 23:00 Intake Total 1240 ml 1100 ml 1360 ml 1049 ml Output Total 800 ml Balance 440 ml 1100 ml 1360 ml 1049 ml Intake Oral 240 ml 960 ml 240 ml IV Total 1000 ml 1100 ml 809 ml Packed Cells 400 ml Output Urine Total 800 ml # Voids 5 4 # Bowel Movements 0 1 3 Laboratory Laboratory Tests Test 08/16/17 22:02 Phosphorus Level 2.3 Magnesium Level 2.0 Total Creatine Kinase 101 Creatine Kinase MB 1.2 Troponin I 0.22 Physical Exam HEENT: Normocephalic; atraumatic; no jaundice. CHEST: Resp. even/unlabored CARDIAC: Irregular ABDOMEN: Soft, nondistended, nontender; no hepatosplenomegaly; bowel sounds are present in all four quadrants.; abd hernia EXTREMITIES: No clubbing, cyanosis, or edema. SKIN: Normal; no rash; no jaundice. [employer]TT[employer] TRAWL[employer] [place]: alert, answers yes or no questions (Sandra Ruby) Assessment and Plan Plan ASSESSMENT: - Melena, questionable GIB. Pt on Coumadin for Afib and presented to the ER for significant epistaxis. INR 3.1. His coumadin is on hold, s/p rhino rocket yesterday. Pt came in with nasal bleeding and had a few melanotic stools. S/P EGD (08/12/17)---> Erosive gastritis. + h pylori. Nurse reports that he has had a few "smears" of black stool, no further nose bleeds and no dontrell red blood. - Anemia, blood loss. S/P 2 units PRBC. HH mild drop after admission. no CBC today. - Epistaxis. S/P ENT eval. No further episodes - Coagulopathy. Coumadin at home. INR 1.9 08/16 - Atrial fibrillation, on coumadin at home. - CAD, COPD per attending 08/17 - no CBC today. no obvious bleeding. being evaluated for possible chest pain by cardiology. No GI complaints today. PLAN: - RADHA - Protonix 40mg po daily - Avoid NSAIDs and aspirin - Monitor labs - Supportive care - f/u as outpt for h pylori treatment - PT seen and examined by Dr. Genao and myself and this note is written on his behalf (Sandra Ruby) Physician Comments agree with above note, we will FU as outpatient. H pylori treatement can be done and started as outpatient. (Catarino Genao MD) Sandra Ruby Aug 17, 2017 16:40 Catarino Genao MD Aug 17, 2017 17:31
[2017-08-17] MEDS: WARFARIN SOD 5 MG TAB PO SCH (16:50)
--- NOTE | 2017-08-17 19:41 | PD.CARD.PN ---
Subjective Subjective Remarks No events overnight Patient states no chest pain/SOB Still confused Telemetry: Afib, had a few more episodes of wide complex tachycardia, but these definitely have R-R variability consistent with Afib with aberrancy Objective Medications Current Medications Medications (Trade) Dose Ordered Sig/Madisyn Route Start Time Stop Time Status Last Admin Sodium Chloride 1,000 ml @ 70 mls/hr [id number] IV 08/10/17 15:00 08/17/17 03:30 (NS Flush) 2 ml UNSCH PRN IV FLUSH 08/10/17 14:45 (NS Flush) 2 ml BID IV FLUSH 08/10/17 21:00 08/16/17 20:23 (Tylenol) 650 mg Q4H PRN PO 08/10/17 14:45 (Zofran Inj) 4 mg Q6H PRN IVP 08/10/17 14:45 (Narcan Inj) 0.4 mg UNSCH PRN IV PUSH 08/10/17 14:45 (Lopressor) 50 mg BID PO 08/10/17 21:00 08/17/17 10:02 (Cozaar) 100 mg DAILY PO 08/11/17 09:00 08/17/17 10:03 (Hydrodiuril) 25 mg DAILY PO 08/11/17 09:00 08/17/17 10:03 (Cardizem) 60 mg QID PO 08/10/17 22:45 08/17/17 18:00 (Coumadin) 5 mg DAILY@1600 PO 08/13/17 16:00 08/17/17 16:50 (Protonix) 40 mg DAILY PO 08/14/17 09:00 08/17/17 10:03 (KCl) 30 meq Q12HR PO 08/16/17 12:15 08/17/17 10:02 Vital Signs / I&O Vital Signs Date Time Temp Pulse Resp B/P (MAP) Pulse Ox O2 Delivery O2 Flow Rate FiO2 08/17/17 16:00 99.3 79 20 162/72 (102) 94 08/17/17 16:00 97.0 70 18 139/67 (91) 98 08/17/17 12:00 98.3 73 20 132/63 (86) 96 08/17/17 11:00 84 08/17/17 11:00 94 Room Air 08/17/17 08:00 98.7 85 18 122/57 (78) 98 08/17/17 04:00 98.1 77 20 146/65 (92) 96 08/17/17 04:00 Nasal Cannula 2.00 08/17/17 00:00 Nasal Cannula 2.00 08/17/17 00:00 98.4 60 16 155/70 (98) 95 08/16/17 20:18 58 08/16/17 20:00 98.0 65 20 119/57 (77) 93 08/16/17 20:00 Nasal Cannula 2.00 I/O 08/16/17 08/16/17 08/16/17 08/17/17 08/17/17 08/17/17 07:00 15:00 23:00 07:00 15:00 23:00 Intake Total 1240 ml 1100 ml 1360 ml 1049 ml 480 ml Output Total 800 ml Balance 440 ml 1100 ml 1360 ml 1049 ml 480 ml Intake Oral 240 ml 960 ml 240 ml 480 ml IV Total 1000 ml 1100 ml 809 ml Packed Cells 400 ml Output Urine Total 800 ml # Voids 5 4 3 # Bowel Movements 0 1 3 1 Physical Exam GENERAL: NAD, Alert and awake SKIN: Warm and dry. HEAD: Atraumatic. Normocephalic. EYES: Pupils equal and round. No scleral icterus. No injection or drainage. ENT: No nasal bleeding or discharge. Mucous membranes pink and moist. NECK: Trachea midline. No JVD. CARDIOVASCULAR: Irregularly irregular RESPIRATORY: No accessory muscle use. Clear to auscultation. Breath sounds equal bilaterally. GASTROINTESTINAL: Abdomen soft, non-tender, nondistended. Hepatic and splenic margins not palpable. MUSCULOSKELETAL: Extremities without clubbing, cyanosis, or edema. No obvious deformities. NEUROLOGICAL: Awake and alert. No obvious cranial nerve deficits. Motor grossly within normal limits. Five out of 5 muscle strength in the arms and legs. Normal speech. PSYCHIATRIC: Appropriate mood and affect; insight and judgment normal. Laboratory Laboratory Tests Test 08/16/17 22:02 Phosphorus Level 2.3 MG/DL Magnesium Level 2.0 MG/DL Total Creatine Kinase 101 U/L Creatine Kinase MB 1.2 NG/ML Troponin I 0.22 NG/ML Assessment and Plan Problem List: (1) Afib ICD Codes: I48.91 - Unspecified atrial fibrillation (2) Wide-complex tachycardia ICD Codes: I47.2 - Ventricular tachycardia (3) Anticoagulated ICD Codes: Z79.01 - long term care social worker (current) use of anticoagulants Status: Acute (4) Hematuria ICD Codes: R31.9 - Hematuria, unspecified Status: Acute (5) Epistaxis ICD Codes: R04.0 - Epistaxis Status: Acute Assessment and Plan 1) Afib Con't anticoagulation Rates controlled 2) Wide complex tachycardia EF normal 1 episode may be NSVT, but otherwise definitely Afib with aberrancy 3) Elevated troponin Flat overall Plan for stress test in the morning, difficult to tell symptoms with confusion Most likely attempt medical management if possible, but will discuss results with and decide on further testing Guanakito Sosa DO Aug 17, 2017 19:41
[2017-08-18] VITALS: BP 132/61; PULSE 60; RESP 21; TEMP 97.7; O2SAT 93
[2017-08-18 04:00] VITALS: BP 142/65; PULSE 58; RESP 22; TEMP 98.1; O2SAT 98
[2017-08-18 08:00] VITALS: BP 149/67; PULSE 97; RESP 18; TEMP 97.5; O2SAT 98
[2017-08-18] MEDS: SODIUM CHLORIDE 0.9% FLUSH 10 ML FLUSH IV FLUSH SCH (09:00)
[2017-08-18] MEDS: METOPROLOL TARTRATE 50 MG TAB PO SCH (09:00)
--- NOTE | 2017-08-18 09:00 | HHI.PR ---
Subjective History of Present Illness Patient seen and examined Chart reviewed Resting in bed Frail elderly male Forgetful, slow stuttering speech with expressive aphasia, able to say a few words Follows simple commands No nausea or vomiting No hematemesis no melena or bright red per Denies chest pain Offers no other complaints Vitals/Results Vital Signs Vital Signs Date Time Temp Pulse Resp B/P (MAP) Pulse Ox O2 Delivery O2 Flow Rate FiO2 08/18/17 08:00 97.5 97 18 149/67 (94) 98 08/18/17 07:31 Room Air 08/18/17 04:00 98.1 58 22 142/65 (90) 98 08/18/17 00:00 97.7 60 21 132/61 (84) 93 08/17/17 20:12 54 08/17/17 20:00 97.3 64 19 139/59 (85) 98 08/17/17 20:00 Nasal Cannula 1.00 08/17/17 16:00 99.3 79 20 162/72 (102) 94 08/17/17 16:00 97.0 70 18 139/67 (91) 98 08/17/17 12:00 98.3 73 20 132/63 (86) 96 08/17/17 11:00 84 08/17/17 11:00 94 Room Air CBC/BMP: 08/16/17 0655 08/16/17 1125 Physical Exam General General Appearance: No Acute Distress, Comfortable Appearance Remarks Elderly male resting in bed, NAD Eyes Eye Exam: Pupils Reactive, Sclera White Ears & Nose Ears & Nose Exam: Nasal Mucosa [place] Throat Throat Exam: Oral Mucosa [place] & Moist Neck Neck Exam: Trachea Midline Pulmonary Resp Exam: Breath Sounds Equal, No Distress, Crackles, Rhonchi Cardiology CV Exam: Irregular Gastrointestinal/Abdomen GI Exam: Soft, Non-Tender, Bowel Sounds Present Integumentary Skin Exam: Warm, Dry Neurologic Neuro Exam: Alert, Awake Neuro Remarks Expressive aphasia, moves upper extremity VTE Prophylaxis VTE Prophylaxis Meds: Coumadin Assessment/Plan Assessment/Plan Assessment s/p epistaxis Erosive antral gastritis/chronic active gastric, Helicobacter pylori +ve s/p 18 beats Nonsustained ventricular tachycardia Severe anemia s/p Transfused 1 unit of packed red blood cells Wheezing, improved Reported fever ch atrial fibrillation, History of stroke with aphasia, hypertension, History of CAD, Dementia Reported history of polymyositis Management No more epistaxis PPI H pylori treatment as an outpatient for GI Beta rose and calcium channel rose for rate control High chads 2 score Continue Coumadin, follow INR, goal is INR between 2 and 3 2-D echocardiogram Mild LVH, normal LV function, EF 55 to 60% Moderate aortic stenosis For stress test per cardiology Continue current treatment DC to SNF if passes stress test . Discussed with older adult social work specialist Discussed with battery recharger See med reconsideration sheet Follow with PCP /cardiology Follow up with GI as outpatient S pylori treatment Consider outpatient rheumatology evaluation reported history of polymyositis Overall prognosis is poor due to multiple comorbid conditions/prior stroke and poor performance status Suzie Ward MD Aug 18, 2017 09:00
[2017-08-18] MEDS: HYDROCHLOROTHIAZIDE 25 MG TAB PO SCH (09:38)
[2017-08-18] MEDS: LOSARTAN 50 MG TAB PO SCH (09:38)
[2017-08-18] MEDS: POTASSIUM CHLORIDE 10 MEQ CONTROLLED RELEASE TAB PO SCH (09:38)
[2017-08-18] MEDS: DILTIAZEM HCL 60 MG TAB PO SCH ×2 (09:38→12:42)
[2017-08-18] MEDS: PANTOPRAZOLE SOD 40 MG DELAYED RELEASE TAB PO SCH (09:38)
[2017-08-18] MEDS: SODIUM CHLOR 0.9% 1000 ML INJ 1,000 ML IV SCH (09:41)
[2017-08-18] MEDS ORDERED: PANT40TA3 PO ×2 (10:07→17:11)
[2017-08-18] MEDS ORDERED: DILT-64 PO (10:07)
[2017-08-18 10:41] VITALS: O2SAT 94
[2017-08-18 12:00] VITALS: BP 133/63; PULSE 68; RESP 18; TEMP 97.3; O2SAT 95
--- NOTE | 2017-08-18 13:20 | HHI.GIFU ---
Subjective Remarks Resting in bed. No obvious bleeding. Denies n/v, nosebleeds, abdominal pain. Objective Vitals I&O Vital Signs Date Time Temp Pulse Resp B/P (MAP) Pulse Ox O2 Delivery O2 Flow Rate FiO2 08/18/17 10:41 94 21 08/18/17 08:00 97.5 97 18 149/67 (94) 98 08/18/17 07:31 Room Air 08/18/17 04:00 98.1 58 22 142/65 (90) 98 08/18/17 00:00 97.7 60 21 132/61 (84) 93 08/17/17 20:12 54 08/17/17 20:00 97.3 64 19 139/59 (85) 98 08/17/17 20:00 Nasal Cannula 1.00 08/17/17 16:00 99.3 79 20 162/72 (102) 94 08/17/17 16:00 97.0 70 18 139/67 (91) 98 I/O 08/17/17 08/17/17 08/17/17 08/18/17 08/18/17 08/18/17 07:00 15:00 23:00 07:00 15:00 23:00 Intake Total 1049 ml 1484 ml 855 ml 272 ml Balance 1049 ml 1484 ml 855 ml 272 ml Intake Oral 240 ml 480 ml 240 ml IV Total 809 ml 1004 ml 615 ml 272 ml # Voids 4 3 5 # Bowel Movements 3 1 3 Imaging Last Impressions Chest X-Ray 08/11/17 0000 Signed Impressions: Service Date/Time: Friday, August 11, 2017 16:31 - CONCLUSION: Compensated cardiomegaly otherwise negative Board Certified Radiologist. This report was verified electronically. Physical Exam HEENT: Normocephalic; atraumatic; no jaundice. CHEST: Resp. even/unlabored CARDIAC: Irregular ABDOMEN: Soft, nondistended, nontender; no hepatosplenomegaly; bowel sounds are present in all four quadrants.; abd hernia EXTREMITIES: No clubbing, cyanosis, or edema. SKIN: Normal; no rash; no jaundice. TOW BAR DRIVER: alert, answers simple yes/no questions Assessment and Plan Plan ASSESSMENT: - Melena, questionable GIB. Pt on Coumadin for Afib and presented to the ER for significant epistaxis. INR 3.1. His coumadin is on hold, s/p rhino rocket yesterday. Pt came in with nasal bleeding and had a few melanotic stools. S/P EGD (08/12/17)---> Erosive gastritis. Pathology with moderately active chronic antral gastritis , helicobacter pylori like organisms are present. - Anemia, blood loss. S/P 2 units PRBC. HH mild drop after admission. no CBC today. - Epistaxis. S/P ENT eval. No further episodes - Coagulopathy. Coumadin at home. INR 1.9 08/16 - Atrial fibrillation, on coumadin at home. - CAD, COPD per attending 08/17 - no CBC today. no obvious bleeding. being evaluated for possible chest pain by cardiology. No GI complaints today. PLAN: - Heart healthy diet - Increase Protonix to 40mg po BID - Amoxicillin 1gram po BID x 10 days - Clarithromycin 500mg po BID x 10 days - Avoid NSAIDs and aspirin - Close monitoring of PT/INR while on Clarithromycin (takes Coumadin) - FU ANGELITA 2 weeks - PT seen and examined by Dr. Stafford and myself and this note is written on his behalf Samira Dyson Aug 18, 2017 13:20
[2017-08-18] MEDS ORDERED: REGADENOSON INJ 0.4 MG/5 ML SYR IV ONE (13:45)
--- NOTE | 2017-08-18 15:13 | RADRPT ---
EXAM DATE/TIME: 08/18/2017 13:01 [facility] COMPARISON: No previous studies available for comparison. INDICATIONS : Elevated troponins. Abnormal EKG. DOSE: 25.7 mCi Tc99m Myoview at stress. 8.7 mCi Tc99m Myoview at rest. 0.4 mg Lexiscan STRESS SYMPTOMS: Dyspnea. EJECTION FRACTION: 37% MEDICAL HISTORY : Renal disease, end stage. SURGICAL HISTORY : Cholecystectomy. ENCOUNTER: Initial ACUITY: 1 day PAIN SCALE: 0/10 LOCATION: chest TECHNIQUE: The patient underwent pharmacologic stress with infusion of prescribed dose. Continuous ECG tracing was monitored during stress. Gated SPECT imaging was performed after stress and conventional SPECT i maging was performed at rest. The examination was performed on a SPECT/CT scanner, both attenuation and non-corrected datasets were reviewed. FINDINGS: DISTRIBUTION: The maximum perfused segment at stress is in the septal wall. PERFUSION STUDY: There is multifocal segments of decreased perfusion, approximately 50% less than the best perfused wa ll, involving apex, apical anterior, entire lateral wall. No evidence of redistribution. The summed stress score is 19. GATED STUDY: Wall motion analysis is compromised due to the multifocal abnormalities which create in accurate trac abelino up the left ventricular wall.. CONCLUSION: 1. Multifocal fixed perfusion defects to suggest multiple areas of infarction or diffuse cardiomyopat hy. 2. Wall motion analysis cannot be accurately performed due to the perfusion defects. By visual asses sment of the gated data, and ejection fraction does appear to be depressed. RISK CATEGORY: Intermediate (1-3% Annual Mortality Rate) Neno Garcia MD on August 18, 2017 at 15:09 Board Certified Radiologist. This report was verified electronically.
[2017-08-18 16:00] VITALS: BP 92/57; PULSE 105; RESP 16; TEMP 97.4; O2SAT 97
[2017-08-18 16:37] LABS: REVIEW FLAG FINAL
[2017-08-18 16:45] LABS: INTERNATIONAL NORMALIZED RATIO 2.4 RATIO; PROTHROMBIN TIME - PATIENT 27.4 SEC (9.8-11.6)
[2017-08-18 16:59] LABS: BICARBONATE 22.6 MEQ/L (21.0-32.0); POTASSIUM 4.2 MEQ/L (3.5-5.1)
[2017-08-18] MEDS ORDERED: AMOX500C PO (17:08)
[2017-08-18] MEDS ORDERED: CLAR500T PO (17:08)
--- NOTE | 2017-08-18 17:15 | HHI.DS ---
Discharge Summary Admission Date Aug 11, 2017 at 10:08 Discharge Date: Aug 18, 2017 Admitting Diagnosis anticoagulated/epistaxis/hematuria (1) Epistaxis ICD Codes: R04.0 - Epistaxis Status: Acute (2) Hematuria ICD Codes: R31.9 - Hematuria, unspecified Status: Acute (3) Anticoagulated ICD Codes: Z79.01 - shelter (current) use of anticoagulants Status: Acute (4) Wide-complex tachycardia ICD Codes: I47.2 - Ventricular tachycardia (5) Afib ICD Codes: I48.91 - Unspecified atrial fibrillation Status: Chronic (6) CAD (coronary artery disease) ICD Codes: I25.10 - Atherosclerotic heart disease of [place] coronary artery without angina pectoris Status: Chronic (7) HTN (hypertension) ICD Codes: I10 - Essential (primary) hypertension Status: Chronic (8) History of CVA with residual deficit ICD Codes: I69.30 - Unspecified sequelae of cerebral infarction Status: Chronic (9) GI bleed ICD Codes: K92.2 - Gastrointestinal hemorrhage, unspecified Status: Acute (10) H. pylori infection ICD Codes: A04.8 - Other specified bacterial intestinal infections Status: Acute CBC/BMP: 08/16/17 0655 08/16/17 1125 Significant Findings Laboratory Tests Test 08/16/17 06:55 08/16/17 11:25 08/16/17 15:04 08/16/17 22:02 Hemoglobin 7.9 GM/DL (13.0-17.0) Prothrombin Time 21.2 SEC (9.8-11.6) Blood Urea Nitrogen 29 MG/DL (7-18) Calcium Level 8.2 MG/DL (8.5-10.1) Chloride Level 114 MEQ/L (98-107) Estimat Glomerular Filtration Rate 62 ML/MIN (>89) Total Creatine Kinase 313 U/L (39-308) Troponin I 0.23 NG/ML (0.02-0.05) 0.22 NG/ML (0.02-0.05) 0.22 NG/ML (0.02-0.05) Phosphorus Level 2.3 MG/DL (2.5-4.9) Test 08/18/17 16:22 Hemoglobin 9.0 GM/DL (13.0-17.0) Hematocrit 27.0 % (39.0-51.0) Imaging Last Impressions Myocardial Perfusion Scan Nuc Med 08/18/17 0000 Signed Impressions: Service Date/Time: Friday, August 18, 2017 13:01 - CONCLUSION: 1. Multifocal fixed perfusion defects to suggest multiple areas of infarction or diffuse cardiomyopathy. 2. Wall motion analysis cannot be accurately performed due to the perfusion defects. By visual assessment of the gated data, and ejection fraction does appear to be depressed. RISK CATEGORY: Intermediate (1-3%% Annual Mortality Rate) Neno Garcia MD Chest X-Ray 08/11/17 0000 Signed Impressions: Service Date/Time: Friday, August 11, 2017 16:31 - CONCLUSION: Compensated cardiomegaly otherwise negative Board Certified Radiologist. This report was verified electronically. Hospital Course The patient is a pleasant 77-year male with significant past medical history of hypertension, atrial fibrillation and COPD, who was brought to the ER because of a nosebleed. The patient started having a nosebleed from this morning and when he came to the ER he was coughing up blood. He continued to have a nosebleed. A Rhino Rocket was put in. Also he had hematuria while in the ER. So he was recommended for admission. He had an INR of 3.1 in the ER. The patient had no other complaint. No headache, no dizziness. No chest pain, diaphoresis or palpitations. There was no abdominal pain. There were no genitourinary symptoms except blood in the urine. LABORATORY Hemoglobin 11.7, hematocrit 34.9, platelet count 182. PT 35.8, INR 3.1, APTT 35.5. Chemistry shows chloride 109, BUN 33. UA shows ketone large, occult blood moderate, leukocyte esterase trace, RBC innumerable, WBC 7. IMAGING Chest x-ray was done which showed no acute disease. No significant change has occurred. Pt. was admitted for: 1. Epistaxis. 2. Hematuria. 3. High INR. 4. Coagulopathy 5. Atrial fibrillation. 6. Anemia, likely of chronic disease. 7. 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 8. History of hypertension. 9. History of CAD. 10. H [place] 11. NSVT 12. Dementia 13. Reported history of polymyositis During the course of the hospitalization the following took place: Pt. put on fluids. Coumadin held. HH repeated. Given CLD diet ENT was consulted. During hospitalization, was noted with melanotic stools. HH dropped,required PRBC and FFP. GI evaluated, PPI was started. Underwent EGD 08/12/2017--->findings of Erosive gastritis. Pathology with moderately active chronic antral gastritis, helicobacter pylori like organisms are present. HH stabilized, INR was monitored Pt. was noted with NSVT. Cardiology consulted. Dr. Sosa unclear if true NSVT or afib with aberrancy. Recommended echo and STT. Had STT with findings as noted above. 2-D echocardiogram Mild LVH, normal LV function, EF 55 to 60% Moderate aortic stenosis GI recommended H pylori treatment with recommendations to monitor INR Beta rose and calcium channel rose for rate control were continued High chads 2 score-Continued Coumadin, follow INR, goal is INR between 2 and 3 CM consult for DC planning, SNF placement. Pt. stable, no more epistaxis, HH stable. INR 2.4. No NSVT Discharged to SNF in stable condition See med reconsideration Follow with PCP /cardiology Follow up with GI as outpatient Consider outpatient rheumatology evaluation reported history of polymyositis Overall prognosis is poor due to multiple comorbid conditions/prior stroke and poor performance status Pt Condition on Discharge: Stable Discharge Disposition: Discharge to SNF Discharge Instructions DIET: Follow Instructions for: Heart Healthy Diet Fluid Restrictions: none Activities you can perform: Weight Bearing as Amilcar Other Activity Instructions: Fall precautions Follow up Referrals: Cardiology - 3 Weeks Gastroenterology - 2 Weeks PCP Follow-up - 1 Week New Medications: Diltiazem CD 24 HR (Diltiazem CD 24 HR) 240 Mg Caper 240 MG PO DAILY, #30 CAP 0 Refills Pantoprazole (Pantoprazole) 40 Mg Tab 40 MG PO DAILY for gastritis for 30 Days, #30 TAB Continued Medications: Losartan-Hydrochlorothiazide (Losartan-Hydrochlorothiazide) 100-25 Mg Tab 1 TAB PO DAILY for Blood Pressure Management, #30 TAB 0 Refills Metoprolol Tartrate (Lopressor) 50 Mg Tab 50 MG PO BID, #60 TAB 0 Refills Warfarin (Warfarin) 5 Mg Tab 5 MG PO ,,,,F,SA for Blood Clot Prevention, #30 TAB 0 Refills Warfarin (Warfarin) 6 Mg Tab 6 MG PO Berrios for Blood Clot Prevention, #30 TAB 0 Refills Janel Marrufo Aug 18, 2017 17:15
[2017-08-18] MEDS: WARFARIN SOD 5 MG TAB PO SCH (17:38)
[2017-08-18] MEDS ORDERED: CLARITHROMYCIN 500 MG TAB PO SCH (21:00)
[2017-08-18] MEDS ORDERED: AMOXICILLIN (TRIHYDRATE) 500 MG CAP PO SCH (21:00)
[2017-08-18] MEDS ORDERED: PANTOPRAZOLE SOD 40 MG DELAYED RELEASE TAB PO SCH (21:00)
== END 2017-08-18 18:00 | DRG 813 ==
LOC: NEPC 09:54 → NEDA 12:48 → NEPHCDU 15:31 → OBSVTOIN 08-11 10:08 → N04B 08-11 22:35
PROVIDERS: ADMIT Specialist; ATTEND Specialist
PROC: 2Y41X5Z Packing of Nasal Region using Packing Material (ICD-10-PCS; principal; 2017-08-10)
PROC: 0DB68ZX Excision of Stomach, Via Natural or Artificial Opening Endoscopic, Diagnostic (ICD-10-PCS; 2017-08-12)
PROC: 30233K1 Transfusion of Nonautologous Frozen Plasma into Peripheral Vein, Percutaneous Approach (ICD-10-PCS; 2017-08-12)
PROC: 30233N1 Transfusion of Nonautologous Red Blood Cells into Peripheral Vein, Percutaneous Approach (ICD-10-PCS; 2017-08-16)
DX: D68.32 Hemorrhagic disorder due to extrinsic circulating anticoagulants (principal); I47.2 Ventricular tachycardia; D68.8 Other specified coagulation defects; M33.20 Polymyositis, organ involvement unspecified; F03.90 Unspecified dementia, unspecified severity, without behavioral disturbance, psychotic disturbance, mood disturbance, and anxiety; J44.9 Chronic obstructive pulmonary disease, unspecified; K92.1 Melena; R04.0 Epistaxis; T45.515A Adverse effect of anticoagulants, initial encounter; I48.91 Unspecified atrial fibrillation; D63.8 Anemia in other chronic diseases classified elsewhere; I69.320 Aphasia following cerebral infarction; I10 Essential (primary) hypertension; I25.10 Atherosclerotic heart disease of native coronary artery without angina pectoris; R31.9 Hematuria, unspecified; Z23 Encounter for immunization; Z79.01 Long term (current) use of anticoagulants; Z95.5 Presence of coronary angioplasty implant and graft; K29.60 Other gastritis without bleeding; N28.9 Disorder of kidney and ureter, unspecified; D64.89 Other specified anemias; B96.81 Helicobacter pylori [H. pylori] as the cause of diseases classified elsewhere; R74.8 Abnormal levels of other serum enzymes; I35.0 Nonrheumatic aortic (valve) stenosis
CPT/HCPCS: 36430; 71010; 78452; 80048; 81001; 82550; 82552; 83735; 84100; 84484; 85014; 85018; 85025; 85027; 85610; 85730; 86850; 86900; 86901; 86920; 86927; 88305; 88312; 90732; 93017; 93306; A9502; C9113; J1940; J2785; J3475; J7030; J7050; J7120; J7613; P9016; P9017

== ENCOUNTER 2017-08-24 23:05 | Emergency (ER) | payer MEDICARE ==
[~2017-08-24] VITALS: Ht 172.7 cm; Wt 92.0 kg
[~2017-08-24 23:05] MED LIST changes: +AMOX500C PO; +CLAR500T PO; +DILT-64 PO; -HYZA100T6 PO; -LOPR50TA12 PO; +LOSA100T2 PO; +METO-309 PO; +PANT40TA3 PO; +WARF-23 PO; +WARF-60 PO; -WARF5TAB PO; -WARF7.5T4 PO
[2017-08-24 23:24] VITALS: BP 137/67; PULSE 58; RESP 16; TEMP 97.7; O2SAT 98
--- NOTE | 2017-08-24 23:35 | PD ---
HPI Chief Complaint: Swelling Time Seen by Provider: 23:15 Travel History International Travel<30 days: No Contact w/Intl Traveler<30days: No Traveled to known affect area: No History of Present Illness HPI Patient with complex medical history sent from a care home for one day history of right arm swelling. There is swelling in the right arm between mid bicep area and mid forearm. No injury to it. Denies fever. There is a bit of redness and some doughy edema. Severity is moderate. No alleviating factors. No exacerbating factors. Patient denies any active bleeding PFSH Past Medical History Hx Anticoagulant Therapy: Yes (COUMADIN) Asthma: No Atrial Fibrillation: Yes Heart Rhythm Problems: Yes Cancer: No Cardiovascular Problems: Yes (HTN, AFIB ) High Cholesterol: Yes COPD: No Cerebrovascular Accident: Yes Endocrine: No Genitourinary: No Hypertension: Yes Musculoskeletal: No Neurologic: Yes Psychiatric: No Reproductive: No Respiratory: No Migraines: No Seizures: No Sleep Apnea: No Past Surgical History Abdominal Surgery: No Cardiac Surgery: No Coronary Stent: Yes (x1) Ear Surgery: No Endocrine Surgery: No Eye Surgery: No Genitourinary Surgery: No Oral Surgery: No Thoracic Surgery: No Other Surgery: Yes (left leg biopsy) Social History Alcohol Use: No Tobacco Use: No Substance Use: No Allergies-Medications (Allergen,Severity, Reaction): Coded Allergies: No Known Allergies (Verified Adverse Reaction, Unknown, 08/24/17) Reported Meds & Prescriptions Reported Meds & Active Scripts Active Pantoprazole (Pantoprazole Sodium) 40 Mg Tab 40 Mg PO BID NEB 30 Days Clarithromycin 500 Mg Tab 500 Mg PO BID 10 Days Amoxicillin 500 Mg Cap 1,000 Mg PO BID 10 Days Diltiazem CD 24 HR 240 Mg Caper 240 Mg PO DAILY Reported Lopressor (Metoprolol Tartrate) 50 Mg Tab 50 Mg PO BID Losartan-Hydrochlorothiazide 100-25 Mg Tab 1 Tab PO DAILY Warfarin 6 Mg Tab 6 Mg PO JOHNSON Warfarin 5 Mg Tab 5 Mg PO ,,,,F,SA Review of Systems General / Constitutional: No: Fever Eyes: No: Visual changes HENT: No: Headaches Cardiovascular: No: Chest Pain or Discomfort Respiratory: No: Shortness of Breath Gastrointestinal: No: Abdominal Pain Genitourinary: No: Dysuria Musculoskeletal: Positive: Edema, Pain Skin: Positive Change in Pigmentation, No Rash Neurologic: No: Weakness Psychiatric: No: Depression Endocrine: No: Polydipsia Hematologic/Lymphatic: No: Easy Bruising Physical Exam Narrative GENERAL: Well-nourished, well-developed patient in no apparent distress. SKIN: Focused skin assessment reveals no rash and nodules. Skin is Warm and dry. HEAD: Atraumatic. Normocephalic. EYES: Pupils equal and round. No scleral icterus. No injection or drainage. ENT: No nasal bleeding or discharge. Mucous membranes pink and moist. NECK: Trachea midline. No JVD. CARDIOVASCULAR: Irregularly irregular rhythm. No murmur appreciated. RESPIRATORY: No accessory muscle use. Clear to auscultation. Breath sounds equal bilaterally. GASTROINTESTINAL: Abdomen soft, non-tender, nondistended. Hepatic and splenic margins not palpable. MUSCULOSKELETAL: Patient has edema and a localized area of the right arm between midforearm and mid bicep. Good range of motion of elbow without any symptoms. No bony tenderness. There is minor erythema. No fluctuance or ascending lymphangitis. No clubbing. No cyanosis. No edema. NEUROLOGICAL: Awake and alert. No obvious cranial nerve deficits. Motor grossly within normal limits. Normal speech. PSYCHIATRIC: Appropriate mood and affect; insight and judgment normal. Data Data Last Documented VS Vital Signs Date Time Temp Pulse Resp B/P (MAP) Pulse Ox O2 Delivery O2 Flow Rate FiO2 08/24/17 23:24 97.7 58 16 137/67 (90) 98 Orders Orders Iv Access Insert/Monitor (08/24/17 23:25) Prothrombin Time / Inr (Pt) (08/24/17 23:25) Complete Blood Count With Diff (08/24/17 23:25) Basic Metabolic Panel (Bmp) (08/24/17 23:25) Us Arm Venous Doppler (08/24/17 ) Sodium Chlor 0.9% 1000 Ml Inj (Ns 1000 M (08/25/17 01:00) Labs Laboratory Tests Test 08/24/17 23:26 White Blood Count 10.8 TH/MM3 Red Blood Count 2.84 MIL/MM3 Hemoglobin 9.3 GM/DL Hematocrit 27.7 % Mean Corpuscular Volume 97.6 FL Mean Corpuscular Hemoglobin 32.8 PG Mean Corpuscular Hemoglobin Concent 33.6 % Red Cell Distribution Width 15.1 % Platelet Count 289 TH/MM3 Mean Platelet Volume 8.3 FL Neutrophils (%) (Auto) 71.3 % Lymphocytes (%) (Auto) 14.6 % Monocytes (%) (Auto) 11.1 % Eosinophils (%) (Auto) 2.3 % Basophils (%) (Auto) 0.7 % Neutrophils # (Auto) 7.7 TH/MM3 Lymphocytes # (Auto) 1.6 TH/MM3 Monocytes # (Auto) 1.2 TH/MM3 Eosinophils # (Auto) 0.2 TH/MM3 Basophils # (Auto) 0.1 TH/MM3 CBC Comment DIFF FINAL Differential Comment Prothrombin Time 114.6 SEC Prothromb Time International Ratio 9.4 RATIO Blood Urea Nitrogen 41 MG/DL Creatinine 1.96 MG/DL Random Glucose 110 MG/DL Calcium Level 8.3 MG/DL Sodium Level 137 MEQ/L Potassium Level 3.8 MEQ/L Chloride Level 108 MEQ/L Carbon Dioxide Level 20.3 MEQ/L Anion Gap 9 MEQ/L Estimat Glomerular Filtration Rate 33 ML/MIN MDM Medical Decision Making Medical Screen Exam Complete: Yes Emergency Medical Condition: Yes Medical Record Reviewed: Yes Differential Diagnosis DVT, cellulitis, soft tissue injury Narrative Course I have reviewed the patient's electronic medical record. Patient had a complicated hospitalization that ended just 6 days ago. Patient is anticoagulated for A. fib with history of stroke but presented with GI bleeding nosebleed and hematuria. His physicians chose to continue him on Coumadin IV placed CBC shows anemia without leukocytosis Metabolic profile shows some azotemia for which have given him a liter of normal saline IV. Physician should consider medication change to exclude the diuretic he takes. INR on Coumadin is elevated at 9.1. Ultrasound of the right arm done to evaluate for DVT. It shows a superficial clot but no DVT. On a clinical basis this does not look like cellulitis. Recommend that he use heating pad and elevate the right arm. Coumadin should be held given the INR less than 10 and no active bleeding. It should be followed at the care home. Clearly this is a terrible Coumadin candidate with recent multiple bleeding sites and now 6 days after discharge his INR is 9.1 His care home physician will need to iron out this complex situation He does not require inpatient care. He is minimally symptomatic with a superficial venous thrombosis and elevated INR Diagnosis Primary Impression: Superficial venous thrombosis of right upper extremity Additional Impression: Supratherapeutic INR Additional Instructions: The patient was advised to follow up with their physician and return if they worsen. Elevate right arm Hold Coumadin because of elevated INR [facility] physician to reassess INR in the near future Consider removing diuretic from medical regimen given his azotemia Med/Other Pt SpecificInfo: Other Disposition: 03 DISCHARGE TO SNF Condition: Stable Jerad Figueroa MD Aug 24, 2017 23:35
[2017-08-24 23:39] LABS: AUTOMATED NEUTROPHIL # 7.7 TH/MM3 (1.8-7.7); BASOPHIL # 0.1 TH/MM3 (0-0.2); BASOPHIL % 0.7 % (0.0-2.0); EOSINOPHIL # 0.2 TH/MM3 (0-0.4); EOSINOPHIL % 2.3 % (0.0-4.0); HEMATOCRIT 27.7 % (39.0-51.0); HEMOGLOBIN 9.3 GM/DL (13.0-17.0); LYMPH % 14.6 % (9.0-44.0); LYMPHOCYTE # 1.6 TH/MM3 (1.0-4.8); MEAN CELL VOLUME 97.6 FL (80.0-100.0); MEAN CORPUSCULAR HEMOGLOBIN 32.8 PG (27.0-34.0); MEAN CORPUSCULAR HGB CONC 33.6 % (32.0-36.0); MEAN PLATELET VOLUME 8.3 FL (7.0-11.0); MONO % 11.1 % (0.0-8.0); MONOCYTE # 1.2 TH/MM3 (0-0.9); NEUT % 71.3 % (16.0-70.0); PLATELET COUNT 289 TH/MM3 (150-450); RED BLOOD COUNT 2.84 MIL/MM3 (4.50-5.90); RED CELL DISTRIBUTION WIDTH 15.1 % (11.6-17.2); WHITE BLOOD COUNT 10.8 TH/MM3 (4.0-11.0)
[2017-08-24 23:54] LABS: BICARBONATE 20.3 MEQ/L (21.0-32.0); CALCIUM 8.3 MG/DL (8.5-10.1); CREATININE 1.96 MG/DL (0.60-1.30)
[2017-08-25 00:28] LABS: PROTHROMBIN TIME - PATIENT 114.6 SEC (9.8-11.6)
[2017-08-25 00:32] LABS: INTERNATIONAL NORMALIZED RATIO 9.4 RATIO
--- NOTE | 2017-08-25 00:52 | RADRPT ---
EXAM DATE/TIME: 08/24/2017 23:57 [facility] COMPARISON: No previous studies available for comparison. INDICATIONS : Right arm swelling. MEDICAL HISTORY : Hypertension. Hypercholesterolemia. Atrial fibrillation. Cerebrovascular accident. Blood transfusio n. SURGICAL HISTORY : Coronary stent. Left leg biopsy. ENCOUNTER: Initial ACUITY: 1 week PAIN SCORE: 7/10 LOCATION: Right arm. FINDINGS: There is spontaneous flow documented in the brachial, basilic, axillary, and subclavian veins. The v essels are compressible and augmentation response is documented. No filling defects are seen. The f low is phasic with respiration. Direction of flow in the jugular vein is caudal. There is thrombosi s present in the superficial cephalic vein in the distal forearm. CONCLUSION: Superficial venous thrombosis involving distal forearm cephalic vein. No evidence of DVT. Puneet Conn MD on August 25, 2017 at 0:48 Board Certified Radiologist. This report was verified electronically.
[2017-08-25] MEDS ORDERED: SODIUM CHLOR 0.9% 1000 ML INJ 1,000 ML IV ONE (01:00)
[2017-08-25 04:25] VITALS: BP 117/58; PULSE 68; RESP 18; O2SAT 97
[2017-08-25] MEDS ORDERED: TYLE325T PO (18:06)
[2017-08-25] MEDS ORDERED: MILKSUS PO (18:06)
[2017-08-25] MEDS ORDERED: DULC10SU3 RECTAL (18:06)
[2017-08-25] MEDS ORDERED: CITRSOL4 PO (18:06)
[2017-08-25] MEDS ORDERED: AMOX500C PO (18:06)
[2017-08-25] MEDS ORDERED: ACID100C PO (18:06)
[2017-08-25] MEDS ORDERED: PROT40TA PO (18:06)
[2017-08-25] MEDS ORDERED: MULTTAB67 PO (18:06)
[2017-08-25] MEDS ORDERED: ENEMENE5 TOPICAL (18:06)
== END 2017-08-25 08:02 ==
LOC: NEPE 23:05
DX: I82.611 Acute embolism and thrombosis of superficial veins of right upper extremity (principal); R79.1 Abnormal coagulation profile; D64.9 Anemia, unspecified; R79.89 Other specified abnormal findings of blood chemistry; I10 Essential (primary) hypertension; E78.00 Pure hypercholesterolemia, unspecified; Z79.01 Long term (current) use of anticoagulants; Z86.79 Personal history of other diseases of the circulatory system; Z86.69 Personal history of other diseases of the nervous system and sense organs
CPT/HCPCS: 80048; 85025; 85610; 93971; 96360; 96361; 99285; J7030

== ENCOUNTER 2017-08-25 17:09 | Inpatient (IN) | payer MEDICARE ==
[~2017-08-25] VITALS: Ht 175.3 cm; Wt 95.9 kg
[2017-08-25] VITALS (9 sets, daily range): BP systolic 90–130; BP diastolic 56–66; PULSE 56–70; RESP 16–20; TEMP 98.4–100.3; O2SAT 95–99
[2017-08-25] MEDS ORDERED: VANCOMYCIN INJ 1,000 MG in SODIUM CHLOR 0.9% 250 ML INJ 250 ML IV STA (17:34)
[2017-08-25] MEDS ORDERED: PIPERACIL-TAZO 4.5 GM PREMIX 100 ML IV STA (17:34)
[2017-08-25] MEDS ORDERED: SODIUM CHLOR 0.9% 1000 ML INJ 1,000 ML IV ONE (17:45)
--- NOTE | 2017-08-25 17:58 | RADRPT ---
EXAM DATE/TIME: 08/25/2017 17:39 [place] Corrected on: August 27, 2017; Added dictating doctor NITIN COMPARISON: CHEST SINGLE AP, August 11, 2017, 16:31. INDICATIONS : Fever. MEDICAL HISTORY : Stroke. Chronic obstructive pulmonary disease. Congestive heart failure. Hy pertension. Hypercholesterolemia. Atrial fibrillation. Blood transfusion. SURGICAL HISTORY : Coronary stent. Left leg biopsy. ENCOUNTER: Initial ACUITY: 1 day PAIN SCORE: 0/10 LOCATION: Bilateral chest FINDINGS: The lungs are clear. The heart is minimally enlarged. The pulmonary vascularity is normal. There is n o evidence for infiltrate or failure. The portion of the bony skeleton visualized is unremarkable. CONCLUSION: Compensated cardiomegaly otherwise negative Kendall Navarro MD FACR Board Certified Radiologist. This report was verified electronically.
[2017-08-25] MEDS ORDERED: CITRSOL4 PO (18:06)
[2017-08-25] MEDS ORDERED: MILKSUS PO (18:06)
[2017-08-25] MEDS ORDERED: MULTTAB67 PO (18:06)
[2017-08-25] MEDS ORDERED: PROT40TA PO (18:06)
[2017-08-25] MEDS ORDERED: TYLE325T PO (18:06)
[2017-08-25] MEDS ORDERED: DULC10SU3 RECTAL (18:06)
[2017-08-25] MEDS ORDERED: ACID100C PO (18:06)
[2017-08-25] MEDS ORDERED: AMOX500C PO (18:06)
[2017-08-25] MEDS ORDERED: ENEMENE5 TOPICAL (18:06)
[2017-08-25 18:22] LABS: AUTOMATED NEUTROPHIL # 7.8 TH/MM3 (1.8-7.7); BASOPHIL # 0.1 TH/MM3 (0-0.2); BASOPHIL % 0.8 % (0.0-2.0); EOSINOPHIL # 0.2 TH/MM3 (0-0.4); EOSINOPHIL % 1.7 % (0.0-4.0); HEMATOCRIT 29.2 % (39.0-51.0); HEMOGLOBIN 9.6 GM/DL (13.0-17.0); LYMPH % 12.8 % (9.0-44.0); LYMPHOCYTE # 1.4 TH/MM3 (1.0-4.8); MEAN CORPUSCULAR HEMOGLOBIN 32.4 PG (27.0-34.0); MEAN CORPUSCULAR HGB CONC 32.8 % (32.0-36.0); MEAN PLATELET VOLUME 8.4 FL (7.0-11.0); MONO % 12.1 % (0.0-8.0); MONOCYTE # 1.3 TH/MM3 (0-0.9); NEUT % 72.6 % (16.0-70.0); PLATELET COUNT 342 TH/MM3 (150-450); RED BLOOD COUNT 2.95 MIL/MM3 (4.50-5.90); RED CELL DISTRIBUTION WIDTH 15.2 % (11.6-17.2); WHITE BLOOD COUNT 10.8 TH/MM3 (4.0-11.0)
[2017-08-25 18:37] LABS: ALKALINE PHOSPHATASE 365 U/L (45-117); TOTAL BILIRUBIN ADULT 1.1 MG/DL (0.2-1.0); TOTAL PROTEIN 7.1 GM/DL (6.4-8.2)
[2017-08-25 18:40] LABS: ALBUMIN 2.4 GM/DL (3.4-5.0); ALT (GPT) 43 U/L (12-78); AST (GOT) 76 U/L (15-37); BICARBONATE 20.2 MEQ/L (21.0-32.0); BLOOD UREA NITROGEN 36 MG/DL (7-18); CALCIUM 8.3 MG/DL (8.5-10.1); CHLORIDE 110 MEQ/L (98-107); CREATININE 1.93 MG/DL (0.60-1.30); GLOMERULAR FILTRATION RATE 34 ML/MIN (>89); GLUCOSE,RANDOM 103 MG/DL (74-106); SODIUM (NA) 138 MEQ/L (136-145)
[2017-08-25 18:42] LABS: PROTHROMBIN TIME - PATIENT 95.7 SEC (9.8-11.6)
[2017-08-25 18:44] LABS: INTERNATIONAL NORMALIZED RATIO 7.9 RATIO
[2017-08-25 19:16] LABS: AMORPHOUS SEDIMENT, URINE RARE; BILIRUBIN, URINE NEG (NEG); BLOOD, URINE NEG (NEG); GLUCOSE,URINE NEG (NEG); HYALINE CAST, URINE 1 /lpf (RARE); KETONE, URINE NEG (NEG); NITRITE,URINE NEG (NEG); PH, URINE 5.5 (5.0-8.5); SQUAMOUS EPITHELIAL CELL URINE <1 /hpf (0-5); URINE COLOR YELLOW (YELLW/STRAW); URINE LEUKOCYTE ESTERASE NEG (NEG)
--- NOTE | 2017-08-25 19:22 | PD ---
HPI Chief Complaint: Fall Time Seen by Provider: 17:28 Travel History International Travel<30 days: No Contact w/Intl Traveler<30days: No Traveled to known affect area: No History of Present Illness HPI 77-year-old male came to the emergency room [facility] after having a fall today. 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 He is on Coumadin and his INR has been running supratherapeutic and the fall was concerning for internal bleed and hence they sent him to the emergency room to be evaluated. Patient has expressive aphasia which is his baseline since the stroke. He is able to understand and is trying to communicate. He was seen in the emergency room yesterday for right forearm swelling and redness. He was diagnosed with superficial thrombophlebitis and discharged home. However today his rectal temperature is 100.3. Rest of the vital signs are within acceptable limits. PFSH Past Medical History Narrative Medical List of his past medical, surgical, social and family history is reviewed from the nursing note. Hx Anticoagulant Therapy: Yes (warfarin) Asthma: No Atrial Fibrillation: Yes Heart Rhythm Problems: Yes Cancer: No Cardiovascular Problems: Yes (a fib) High Cholesterol: Yes COPD: No Cerebrovascular Accident: Yes Diminished Hearing: No Endocrine: No Genitourinary: No Hypertension: Yes Musculoskeletal: No Neurologic: Yes Psychiatric: No Reproductive: No Respiratory: No Migraines: No Seizures: No Sleep Apnea: No Tetanus Vaccination: < 5 Years Influenza Vaccination: Yes Past Surgical History Abdominal Surgery: No Cardiac Surgery: No Coronary Stent: Yes (x1) Ear Surgery: No Endocrine Surgery: No Eye Surgery: No Genitourinary Surgery: No Oral Surgery: No Thoracic Surgery: No Other Surgery: Yes (left leg biopsy) Social History Alcohol Use: No Tobacco Use: No Substance Use: No Allergies-Medications (Allergen,Severity, Reaction): Coded Allergies: No Known Allergies (Verified Allergy, Unknown, 08/25/17) Comments List of his allergies reviewed from the nursing note. Reported Meds & Prescriptions Reported Meds & Active Scripts Active Clarithromycin 500 Mg Tab 500 Mg PO BID 10 Days Diltiazem CD 24 HR 240 Mg Caper 240 Mg PO DAILY Reported Citroma Liq (Magnesium Citrate) 300 Ml Liq 296 Ml PO IN AM PRN Amoxicillin 500 Mg Cap 500 Mg PO BID 10 Days Milk of Magnesia Liq (Magnesium Hydroxide) 400 Mg/5 Ml Susp 30 Ml PO HS PRN Tylenol (Acetaminophen) 325 Mg Tab 650 Mg PO Q4H PRN Dulcolax Supp (Bisacodyl) 10 Mg Supp 10 Mg RECTAL DAILY PRN Enema Disposable (Sodium Phosphates) 19 Gram-7 Gram/118 Ml Bertha 1 Applic TOPICAL PRN Acidophilus Probiotic (Lactobacillus) 100 Mg (1 Billion Cell) Cap 1 Cap PO Q8HR 14 Days Protonix (Pantoprazole Sodium) 40 Mg Tab 40 Mg PO BID Multiple Vitamin 1 Tab 1 Tab PO DAILY Lopressor (Metoprolol Tartrate) 50 Mg Tab 50 Mg PO BID Losartan-Hydrochlorothiazide 100-25 Mg Tab 1 Tab PO DAILY Narrative Medication List of his home medications reviewed from the nursing note. Review of Systems Except as stated in HPI: all other systems reviewed are Neg General / Constitutional: Positive: Fever Skin: Positive Other (redness) Physical Exam Narrative GENERAL: Awake, alert, expressive aphasia status post CVA, anxious, moderate distress SKIN: Focused skin assessment warm/dry. Right forearm proximal volar aspect has a redness, swelling and some tenderness that is about 6 x 6 cm. It is warm to touch HEAD: Atraumatic. Normocephalic. EYES: Pupils equal and round. No scleral icterus. No injection or drainage. ENT: No nasal bleeding or discharge. Mucous membranes pink and moist. NECK: Trachea midline. No JVD. CARDIOVASCULAR: Regular rate and rhythm. No murmur appreciated. RESPIRATORY: No accessory muscle use. Clear to auscultation. Breath sounds equal bilaterally. GASTROINTESTINAL: Abdomen soft, non-tender, nondistended. Hepatic and splenic margins not palpable. MUSCULOSKELETAL: No obvious deformities. No clubbing. No cyanosis. No edema. NEUROLOGICAL: Awake and alert. No obvious cranial nerve deficits. Motor grossly within normal limits. Expressive aphasia PSYCHIATRIC: Appropriate mood and affect; insight and judgment normal. Data Data Last Documented VS Vital Signs Date Time Temp Pulse Resp B/P (MAP) Pulse Ox O2 Delivery O2 Flow Rate FiO2 08/25/17 18:26 99.6 66 17 125/66 (85) 98 Room Air Orders Orders Electrocardiogram (08/25/17 17:34) Complete Blood Count With Diff (08/25/17 17:34) Comprehensive Metabolic Panel (08/25/17 17:34) Prothrombin Time / Inr (Pt) (08/25/17 17:34) Lactic Acid Sepsis Protocol (08/25/17 17:34) Urinalysis - C+S If Indicated (08/25/17 17:34) Blood Culture (08/25/17 17:34) Chest, Single Ap (08/25/17 17:34) Blood Glucose (08/25/17 17:34) Ecg Monitoring (08/25/17 17:34) Iv Access Insert/Monitor (08/25/17 17:34) Oximetry (08/25/17 17:34) Oxygen Administration (08/25/17 17:34) Vancomycin Inj (Vancomycin Inj) (08/25/17 17:34) Piperacil-Tazo 4.5 Gm Premix (Zosyn 4.5 (08/25/17 17:34) Ct Brain W/O Iv Contrast(Rout) (08/25/17 ) Sodium Chlor 0.9% 1000 Ml Inj (Ns 1000 M (08/25/17 17:45) Ct Elbow W/O Contrast (08/25/17 ) Admit To Inpatient (08/25/17 ) Vital Signs (Adult) VICENTE.Q4H (08/25/17 19:19) Activity Oob Ad Marcy (08/25/17 19:19) Intake + Output 06,14,22 (08/25/17 19:19) Sodium Chloride 0.9% Flush (Ns Flush) (08/25/17 19:30) Sodium Chloride 0.9% Flush (Ns Flush) (08/25/17 21:00) Inpatient Certification (08/25/17 ) Admit Order (Ed Use Only) (08/25/17 19:47) Labs Laboratory Tests Test 08/25/17 17:30 08/25/17 17:50 Urine Color YELLOW Urine Turbidity CLEAR Urine pH 5.5 Urine Specific [place] 1.019 Urine Protein NEG mg/dL Urine Glucose (UA) NEG mg/dL Urine Ketones NEG mg/dL Urine Occult Blood NEG Urine Nitrite NEG Urine Bilirubin NEG Urine Urobilinogen 4.0 MG/DL Urine Leukocyte Esterase NEG Urine WBC LESS THAN 1 /hpf Urine Squamous Epithelial Cells <1 /hpf Urine Amorphous Sediment RARE Urine Hyaline Casts 1 /lpf Microscopic Urinalysis Comment CATH-CULT NOT IND White Blood Count 10.8 TH/MM3 Red Blood Count 2.95 MIL/MM3 Hemoglobin 9.6 GM/DL Hematocrit 29.2 % Mean Corpuscular Volume 99.0 FL Mean Corpuscular Hemoglobin 32.4 PG Mean Corpuscular Hemoglobin Concent 32.8 % Red Cell Distribution Width 15.2 % Platelet Count 342 TH/MM3 Mean Platelet Volume 8.4 FL Neutrophils (%) (Auto) 72.6 % Lymphocytes (%) (Auto) 12.8 % Monocytes (%) (Auto) 12.1 % Eosinophils (%) (Auto) 1.7 % Basophils (%) (Auto) 0.8 % Neutrophils # (Auto) 7.8 TH/MM3 Lymphocytes # (Auto) 1.4 TH/MM3 Monocytes # (Auto) 1.3 TH/MM3 Eosinophils # (Auto) 0.2 TH/MM3 Basophils # (Auto) 0.1 TH/MM3 CBC Comment DIFF FINAL Differential Comment Prothrombin Time 95.7 SEC Prothromb Time International Ratio 7.9 RATIO Blood Urea Nitrogen 36 MG/DL Creatinine 1.93 MG/DL Random Glucose 103 MG/DL Total Protein 7.1 GM/DL Albumin 2.4 GM/DL Calcium Level 8.3 MG/DL Alkaline Phosphatase 365 U/L Aspartate Amino Transf (AST/SGOT) 76 U/L Alanine Aminotransferase (ALT/SGPT) 43 U/L Total Bilirubin 1.1 MG/DL Sodium Level 138 MEQ/L Potassium Level 4.4 MEQ/L Chloride Level 110 MEQ/L Carbon Dioxide Level 20.2 MEQ/L Anion Gap 8 MEQ/L Estimat Glomerular Filtration Rate 34 ML/MIN Lactic Acid Level 1.9 mmol/L MDM Medical Decision Making Medical Screen Exam Complete: Yes Emergency Medical Condition: Yes Medical Record Reviewed: Yes Interpretation(s) Twelve-lead EKG was reviewed by me. Atrial fibrillation, left axis deviation, poor R-wave progression, nonspecific ST-T wave changes. Heart rate of 62 bpm. Differential Diagnosis Sepsis, cellulitis, abscess, intracranial bleed Narrative Course 7:38 PM blood test results are back. Patient has some left shift but normal CBC and lactic acid. Is given IV Zosyn and vancomycin as per sepsis protocol for the infection. Patient's INR is significantly elevated. CT scan of the head and forearm was ordered and awaiting for the results. Patient has been admitted to the hospitalist. He does have some renal insufficiency possibly secondary to dehydration. Critical Care Narrative Aggregate critical care time was 30 minutes. Time to perform other separately billable procedures was not included in the critical care time. My time did not include minutes spent treating any other patients simultaneously or on activities that did not directly contribute to the patient's treatment. The services I provided to this patient were to treat and/or prevent clinically significant deterioration that could result in: Sepsis, sepsis protocol I provided critical care services requiring my management, as noted below: Chart data review, documentation time, medication orders and management, vital sign assessments/reviewing monitor data, ordering and reviewing lab tests, ordering and interpreting/reviewing x-rays and diagnostic studies, care of the patient and discussion of the patient with the admitting physicians. Procedures EKG Prior to Arrival: No Diagnosis Primary Impression: SIRS (systemic inflammatory response syndrome) Additional Impressions: Cellulitis of forearm, right Supratherapeutic INR Fall Qualified Codes: W19.XXXA - Unspecified fall, initial encounter Admitting Information Admitting Physician Requests: Admit Scripts Warfarin (Coumadin) 3 Mg Tab 3 MG PO DAILY for Prevent Blood Clot, #30 TAB 0 Refills Prov: Rosi Oliav MD 08/27/17 Marj Riggins MD Aug 25, 2017 19:22
[2017-08-25] MEDS ORDERED: SODIUM CHLORIDE 0.9% FLUSH 10 ML FLUSH IV FLUSH PRN ×2 (19:30→21:45)
--- NOTE | 2017-08-25 19:38 | RADRPT ---
EXAM DATE/TIME: 08/25/2017 19:05 [facility] COMPARISON: No previous studies available for comparison. INDICATIONS : Head pain due to fall. RADIATION DOSE: 56.35 CTDIvol (mGy) MEDICAL HISTORY : Cardiovascular disease. Hypertension. Myocardial infarction.AFib. SURGICAL HISTORY : None. ENCOUNTER: Initial ACUITY: 1 day PAIN SCALE: 6/10 LOCATION: Bilateral cranial TECHNIQUE: Multiple contiguous axial images were obtained of the head. Using automated exposure control and adj ustment of the mA and/or kV according to patient size, radiation dose was kept as low as reasonably a chievable to obtain optimal diagnostic quality images. DICOM format image data is available electro nically for review and comparison. FINDINGS: There is a large area of low density encephalomalacia involving the left frontal and parietal lobe wi th ex vacuo change involving the left lateral ventricle. There is no mass effect or midline shift. Mo derate atrophic changes noted with sulcal and ventricular prominence. The posterior fossa and brainst em are unremarkable. The bone windows demonstrate no underlying abnormality. CONCLUSION: 1. No acute hemorrhage or mass effect. 2. Moderate atrophic change as well as a large area of encephalomalacia involving the left frontal an d parietal lobes. Laz Caraballo MD on August 25, 2017 at 19:35 Board Certified Radiologist. This report was verified electronically.
--- NOTE | 2017-08-25 19:44 | RADRPT ---
EXAM DATE/TIME: 08/25/2017 19:09 [facility] COMPARISON: No previous studies available for comparison. INDICATIONS : Right elbow pain from fall. RADIATION DOSE: 44.21 CTDIvol (mGy) MEDICAL HISTORY : Myocardial infarction. Hypertension. Cardiovascular diseaseAFib. SURGICAL HISTORY : None. ENCOUNTER: Initial ACUITY: 1 day PAIN SCALE: 8/10 LOCATION: Right elbow. TECHNIQUE: Volumetric scanning of the elbow was performed. Using automated exposure control and adjustment of t he mA and/or kV according to patient size, radiation dose was kept as low as reasonably achievable to obtain optimal diagnostic quality images. DICOM format image data is available electronically for r eview and comparison. FINDINGS: BONES: No evidence of fracture. Alignment is within normal limits. JOINTS: No evidence of joint narrowing or effusion. SOFT TISSUES: Muscles, tendons and neurovascular structures are grossly unremarkable. There is diffuse edema greate st along the posterior arm. Ossification is noted in the distal quadriceps tendon. CONCLUSION: 1. Soft tissue swelling and edema. 2. No acute fracture or malalignment. Laz Caraballo MD on August 25, 2017 at 19:41 Board Certified Radiologist. This report was verified electronically.
[2017-08-25] MEDS ORDERED: SODIUM CHLORIDE 0.9% FLUSH 10 ML FLUSH IV FLUSH SCH (21:00)
--- NOTE | 2017-08-25 21:29 | HHI.HP ---
[facility] Service [place] [facility] Primary Care Physician No Primary Care Physician Admission Diagnosis fall, supratherapeutic INR, cellulitis Diagnoses: Travel History International Travel<30 Days: No Contact w/Intl Traveler <30 Da: No Traveled to Known Affected Are: No History of Present Illness 77-year-old male with a past medical history significant for CVA (unknown timeframe) anticoagulated on Coumadin for atrial fibrillation [facility]. The patient has a history of supratherapeutic INR and was sent to the emergency department for further evaluation. On arrival in the ED, the patient's INR was 7.9. He was seen in the emergency department yesterday for evaluation of right arm swelling. Ultrasound of the right arm showed superficial clot without DVT. INR yesterday in the emergency department was 9.1. Patient with no active bleeding and was [facility] with Coumadin being held and orders to follow INR. Patient with a history of COPD, currently complaining of shortness of breath. Oxygen saturation 93% on room air. Denies chest pain. Chest x-ray within normal limits. Head CT negative for bleed. Right arm CT showed no acute fracture and mild soft tissue swelling and edema. Review of Systems Denies fever or chills Denies blurry vision, otorrhea, rhinorrhea Denies sore throat and cough No chest pain, palpitations, shortness of breath per history of present illness No abdominal pain Denies constipation/diarrhea/nausea/vomiting Denies muscle pain/weakness No rashes Past Family Social History Past Medical History Recent CVA Atrial fibrillation anticoagulated on Coumadin with a history of supratherapeutic INR Hypertension COPD CAD Past Surgical History Coronary stent 1 Reported Medications Reported Meds & Active Scripts Active Clarithromycin 500 Mg Tab 500 Mg PO BID 10 Days Diltiazem CD 24 HR 240 Mg Caper 240 Mg PO DAILY Reported Citroma Liq (Magnesium Citrate) 300 Ml Liq 296 Ml PO IN AM PRN Amoxicillin 500 Mg Cap 500 Mg PO BID 10 Days Milk of Magnesia Liq (Magnesium Hydroxide) 400 Mg/5 Ml Susp 30 Ml PO HS PRN Tylenol (Acetaminophen) 325 Mg Tab 650 Mg PO Q4H PRN Dulcolax Supp (Bisacodyl) 10 Mg Supp 10 Mg RECTAL DAILY PRN Enema Disposable (Sodium Phosphates) 19 Gram-7 Gram/118 Ml Bertha 1 Applic TOPICAL PRN Acidophilus Probiotic (Lactobacillus) 100 Mg (1 Billion Cell) Cap 1 Cap PO Q8HR 14 Days Protonix (Pantoprazole Sodium) 40 Mg Tab 40 Mg PO BID Multiple Vitamin 1 Tab 1 Tab PO DAILY Lopressor (Metoprolol Tartrate) 50 Mg Tab 50 Mg PO BID Losartan-Hydrochlorothiazide 100-25 Mg Tab 1 Tab PO DAILY Allergies: Coded Allergies: No Known Allergies (Verified Allergy, Unknown, 08/25/17) Family History Patient unaware. Social History Denies alcohol, tobacco and illicit drugs. Physical Exam Vital Signs Vital Signs Date Time Temp Pulse Resp B/P (MAP) Pulse Ox O2 Delivery O2 Flow Rate FiO2 08/25/17 18:26 99.6 66 17 125/66 (85) 98 Room Air 08/25/17 18:20 72 18 98 Room Air 08/25/17 17:42 18 98 Room Air 08/25/17 17:42 98 Room Air 08/25/17 17:19 100.3 70 18 130/66 (87) 99 Physical Exam GENERAL: Confused male, lying in bed. Moderate distress. SKIN: No rashes, ecchymoses or lesions. Cool and dry. Right forearm with warmth and erythema. HEAD: Atraumatic. Normocephalic. No temporal or scalp tenderness. EYES: Pupils equal round and reactive. Extraocular motions intact. No scleral icterus. No injection or drainage. ENT: Nose without bleeding, purulent drainage or septal hematoma. Throat without erythema, tonsillar hypertrophy or exudate. Uvula midline. Airway patent. NECK: Trachea midline. No JVD or lymphadenopathy. Supple, nontender, no meningeal signs. CARDIOVASCULAR: Regular rate and rhythm without murmurs, gallops, or rubs. RESPIRATORY: Breath sounds equal bilaterally. Mild crackles in the bilateral bases. No wheezes, rales, or rhonchi. GASTROINTESTINAL: Abdomen soft, non-tender, nondistended. No hepato-splenomegaly , or palpable masses. No guarding. MUSCULOSKELETAL: Extremities without clubbing, cyanosis, or edema. No joint tenderness, effusion, or edema noted. No calf tenderness. Negative Homans sign bilaterally. NEUROLOGICAL: Awake and alert. Cranial nerves II through XII intact. Motor and sensory grossly within normal limits. Expressive aphasia. Laboratory Laboratory Tests Test 08/25/17 17:30 08/25/17 17:50 Urine Color YELLOW Urine Turbidity CLEAR Urine pH 5.5 Urine Specific [place] 1.019 Urine Protein NEG Urine Glucose (UA) NEG Urine Ketones NEG Urine Occult Blood NEG Urine Nitrite NEG Urine Bilirubin NEG Urine Urobilinogen 4.0 Urine Leukocyte Esterase NEG Urine WBC LESS THAN 1 Urine Squamous Epithelial Cells <1 Urine Amorphous Sediment RARE Urine Hyaline Casts 1 Microscopic Urinalysis Comment CATH-CULT NOT IND White Blood Count 10.8 Red Blood Count 2.95 Hemoglobin 9.6 Hematocrit 29.2 Mean Corpuscular Volume 99.0 Mean Corpuscular Hemoglobin 32.4 Mean Corpuscular Hemoglobin Concent 32.8 Red Cell Distribution Width 15.2 Platelet Count 342 Mean Platelet Volume 8.4 Neutrophils (%) (Auto) 72.6 Lymphocytes (%) (Auto) 12.8 Monocytes (%) (Auto) 12.1 Eosinophils (%) (Auto) 1.7 Basophils (%) (Auto) 0.8 Neutrophils # (Auto) 7.8 Lymphocytes # (Auto) 1.4 Monocytes # (Auto) 1.3 Eosinophils # (Auto) 0.2 Basophils # (Auto) 0.1 CBC Comment DIFF FINAL Differential Comment Prothrombin Time 95.7 Prothromb Time International Ratio 7.9 Blood Urea Nitrogen 36 Creatinine 1.93 Random Glucose 103 Total Protein 7.1 Albumin 2.4 Calcium Level 8.3 Alkaline Phosphatase 365 Aspartate Amino Transf (AST/SGOT) 76 Alanine Aminotransferase (ALT/SGPT) 43 Total Bilirubin 1.1 Sodium Level 138 Potassium Level 4.4 Chloride Level 110 Carbon Dioxide Level 20.2 Anion Gap 8 Estimat Glomerular Filtration Rate 34 Lactic Acid Level 1.9 Date/Time Source Procedure Growth Status 08/25/17 17:55 Blood Peripheral Aerobic Blood Culture Pending Received 08/25/17 17:55 Blood Peripheral Anaerobic Blood Culture Pending Received Result Diagram: 08/25/17 17508/25/17 175 Caprini VTE Risk Assessment Caprini VTE Risk Assessment: No/Low Risk (score <= 1) Caprini Risk Assessment Model Point Value = 1 Point Value = 2 Point Value = 3 Point Value = 5 Age 41-60 Minor surgery BMI > 25 kg/m2 Swollen legs Varicose veins or History of unexplained or recurrent spontaneous Oral contraceptives or hormone replacement Sepsis (< 1 month) Serious lung disease, including pneumonia (< 1 month) Abnormal pulmonary function Acute myocardial infarction Congestive heart failure (< 1 month) History of inflammatory bowel disease Medical patient at bed rest Age 61-74 Arthroscopic surgery Major open surgery (> 45 min) Laparoscopic surgery (> 45 min) Malignancy Confined to bed (> 72 hours) Immobilizing plaster cast Central venous access Age >= 75 History of VTE Family history of VTE Factor V Leiden Prothrombin [id number] Lupus anticoagulant Anticardiolipin antibodies Elevated serum homocysteine Heparin-induced thrombocytopenia Other congenital or acquired thrombophilia Stroke (< 1 month) Elective arthroplasty Hip, pelvis, or leg fracture Acute spinal cord injury (< 1 month) Prophylaxis Regimen Total Risk Factor Score Risk Level Prophylaxis Regimen 0-1 Low Early ambulation 2 Moderate Order ONE of the following: *Sequential Compression Device (SCD) *Heparin 5000 units SQ BID 3-4 Higher Order ONE of the following medications: *Heparin 5000 units SQ TID *Enoxaparin/Lovenox 40 mg SQ daily (WT < 150 kg, CrCl > 30 mL/min) *Enoxaparin/Lovenox 30 mg SQ daily (WT < 150 kg, CrCl > 10-29 mL/min) *Enoxaparin/Lovenox 30 mg SQ BID (WT < 150 kg, CrCl > 30 mL/min) AND/OR *Sequential Compression Device (SCD) 5 or more Highest Order ONE of the following medications: *Heparin 5000 units SQ TID (Preferred with Epidurals) *Enoxaparin/Lovenox 40 mg SQ daily (WT < 150 kg, CrCl > 30 mL/min) *Enoxaparin/Lovenox 30 mg SQ daily (WT < 150 kg, CrCl > 10-29 mL/min) *Enoxaparin/Lovenox 30 mg SQ BID (WT < 150 kg, CrCl > 30 mL/min) AND *Sequential Compression Device (SCD) Assessment and Plan Assessment and Plan 77-year-old male with past medical history significant for recent CVA with atrial fibrillation anticoagulated on Coumadin and previously supratherapeutic presents to the ED status post fall and supratherapeutic INR at 7.9 1. Supratherapeutic INR No active bleeds Holding Coumadin Monitor INR Patient is a poor Coumadin candidate, will need different anticoagulation upon discharge 2. A. fib Continue diltiazem and metoprolol Holding anticoagulation as above 3. Hypertension Continue home medications 4. COPD DuoNebs scheduled at this time as patient short of breath Monitor for hypoxemia 5. GERD Continue Protonix 6. FEN No indication for fluids at this time Electrolytes within normal limits Heart healthy diet Currently supratherapeutic INR, pharmacologic anticoagulation contraindicated Physician Certification 2 Midnight Certification Type: Admission for Inpatient Services Order for Inpatient Services The services are ordered in accordance with Medicare regulations or non- Medicare payer requirements, as applicable. In the case of services not specified as inpatient-only, they are appropriately provided as inpatient services in accordance with the 2-midnight benchmark. Estimated LOS (days): 3 3 days is the estimated time the patient will need to remain in the hospital, assuming treatment plan goals are met and no additional complications. Post-Hospital Plan: Not yet determined Jeanna Callahan MD Aug 25, 2017 21:29
[2017-08-25] MEDS ORDERED: BISACODYL 10 MG SUPP RECTAL PRN ×2 (21:30→21:45)
[2017-08-25] MEDS ORDERED: MAGNESIUM HYDROXIDE SUSP 30 ML CUP PO PRN ×2 (21:30→21:45)
[2017-08-25] MEDS ORDERED: MAGNESIUM CITRATE SOLN 300 ML BTL PO PRN (21:30)
[2017-08-25] MEDS ORDERED: NALOXONE HCL 0.4 MG/ML AMP IV PUSH PRN (21:45)
[2017-08-25] MEDS ORDERED: ACETAMINOPHEN 325 MG TAB PO PRN (21:45)
[2017-08-25] MEDS ORDERED: LACTULOSE SYRUP 20 GM/30 ML CUP PO PRN (21:45)
[2017-08-25] MEDS ORDERED: ONDANSETRON HCL 4 MG/2 ML VIAL IVP PRN (21:45)
[2017-08-25] MEDS ORDERED: SENNOSIDES 8.6 MG TAB PO PRN (21:45)
[2017-08-26] VITALS (10 sets, daily range): BP systolic 108–128; BP diastolic 57–62; PULSE 50–84; RESP 16–22; TEMP 97.2–98.3; O2SAT 94–98
[2017-08-26 05:49] LABS: BASOPHIL # 0.1 TH/MM3 (0-0.2); BASOPHIL % 1.1 % (0.0-2.0); EOSINOPHIL # 0.2 TH/MM3 (0-0.4); EOSINOPHIL % 3.5 % (0.0-4.0); HEMATOCRIT 25.3 % (39.0-51.0); HEMOGLOBIN 8.4 GM/DL (13.0-17.0); LYMPH % 18.4 % (9.0-44.0); LYMPHOCYTE # 1.1 TH/MM3 (1.0-4.8); MEAN CELL VOLUME 98.4 FL (80.0-100.0); MEAN CORPUSCULAR HEMOGLOBIN 32.7 PG (27.0-34.0); MEAN CORPUSCULAR HGB CONC 33.2 % (32.0-36.0); MEAN PLATELET VOLUME 7.7 FL (7.0-11.0); MONO % 12.8 % (0.0-8.0); MONOCYTE # 0.8 TH/MM3 (0-0.9); NEUT % 64.2 % (16.0-70.0); PLATELET COUNT 304 TH/MM3 (150-450); RED BLOOD COUNT 2.57 MIL/MM3 (4.50-5.90); RED CELL DISTRIBUTION WIDTH 15.3 % (11.6-17.2); WHITE BLOOD COUNT 6.2 TH/MM3 (4.0-11.0)
[2017-08-26 05:53] LABS: INTERNATIONAL NORMALIZED RATIO 5.4 RATIO; PROTHROMBIN TIME - PATIENT 64.8 SEC (9.8-11.6)
[2017-08-26 06:07] LABS: BICARBONATE 21.2 MEQ/L (21.0-32.0); CALCIUM 8.1 MG/DL (8.5-10.1); CREATININE 1.58 MG/DL (0.60-1.30)
[2017-08-26] MEDS: RESP: ALBUTEROL 2.5 MG/IPRATROPIUM 0.5 MG NEB (SCH) NEB ×4 (08:42→21:29)
[2017-08-26] MEDS: DILTIAZEM-CD 240 MG CAP ER PO SCH (08:48)
[2017-08-26] MEDS: LOSARTAN 50 MG TAB PO SCH (08:48)
[2017-08-26] MEDS: SODIUM CHLORIDE 0.9% FLUSH 10 ML FLUSH IV FLUSH SCH ×2 (08:48→21:00)
[2017-08-26] MEDS: DOCUSATE SODIUM 50 MG/SENNA 8.6 MG TAB PO SCH ×2 (08:48→22:38)
[2017-08-26] MEDS: PANTOPRAZOLE SOD 40 MG DELAYED RELEASE TAB PO SCH ×2 (08:48→22:38)
[2017-08-26] MEDS: HYDROCHLOROTHIAZIDE 25 MG TAB PO SCH (08:48)
[2017-08-26] MEDS: METOPROLOL TARTRATE 50 MG TAB PO SCH ×2 (08:48→22:38)
[2017-08-26] MEDS ORDERED: NON-FORMULARY DRUG (Losartan-Hydrochlorothiazide 1 TAB) PO SCH (09:00)
[2017-08-26] MEDS: CLARITHROMYCIN 500 MG TAB PO SCH ×2 (09:00→22:38)
[2017-08-26] MEDS: AMOXICILLIN (TRIHYDRATE) 500 MG CAP PO SCH ×2 (09:00→22:38)
[2017-08-26] MEDS ORDERED: PHYTONADIONE 10 MG/ML VIAL SQ ONE (11:00)
--- NOTE | 2017-08-26 12:31 | HHI.PR ---
Subjective Remarks Patient seen this morning. Says he is feeling all right. Denies any chest pain or shortness of breath. Denies any nausea or vomiting. Objective Vital Signs Date Time Temp Pulse Resp B/P (MAP) Pulse Ox O2 Delivery O2 Flow Rate FiO2 08/26/17 08:47 95 21 08/26/17 08:00 97.4 74 20 120/58 (78) 97 08/26/17 04:00 97.6 64 16 116/57 (76) 98 08/26/17 00:00 98.3 62 16 125/62 (83) 96 08/25/17 22:00 98.4 60 16 122/59 (80) 95 08/25/17 22:00 08/25/17 21:30 60 20 115/63 (80) 98 Room Air 08/25/17 21:00 62 20 122/58 (79) 97 Room Air 08/25/17 20:30 58 19 114/57 (76) 97 Room Air 08/25/17 20:00 98.6 56 20 117/56 (76) 98 Room Air 08/25/17 18:26 99.6 66 17 125/66 (85) 98 Room Air 08/25/17 18:20 72 18 98 Room Air 08/25/17 17:42 18 98 Room Air 08/25/17 17:42 98 Room Air 08/25/17 17:19 100.3 70 18 130/66 (87) 99 I/O 08/25/17 08/25/17 08/25/17 08/26/17 08/26/17 08/26/17 07:00 15:00 23:00 07:00 15:00 23:00 Intake Total 1100 ml 200 ml Output Total 120 ml Balance 1100 ml 80 ml Intake Oral 200 ml IV Total 1100 ml Output Urine Total 120 ml Result Diagram: 08/26/17 0528 08/26/17 0528 Imaging Last Impressions Chest X-Ray 08/25/17 1734 Signed Impressions: Service Date/Time: Friday, August 25, 2017 17:39 - CONCLUSION: Compensated cardiomegaly otherwise negative Board Certified Radiologist. This report was verified electronically. Upper Extremity CT 08/25/17 0000 Signed Impressions: Service Date/Time: Friday, August 25, 2017 19:09 - CONCLUSION: 1. Soft tissue swelling and edema. 2. No acute fracture or malalignment. Laz Caraballo MD Head CT 08/25/17 0000 Signed Impressions: Service Date/Time: Friday, August 25, 2017 19:05 - CONCLUSION: 1. No acute hemorrhage or mass effect. 2. Moderate atrophic change as well as a large area of encephalomalacia involving the left frontal and parietal lobes. Laz Caraballo MD Objective Remarks GENERAL: Patient sitting up in chair. Appears comfortable. SKIN: Warm and dry. HEAD: Normocephalic. EYES: No scleral icterus. No injection or drainage. NECK: Supple, trachea midline. No JVD. CARDIOVASCULAR: Regular rate and rhythm without murmurs, gallops, or rubs. RESPIRATORY: Breath sounds equal bilaterally. No accessory muscle use. GASTROINTESTINAL: Abdomen soft, non-tender, nondistended. MUSCULOSKELETAL: No cyanosis, or edema. Right arm with erythema improving. No broken skin. BACK: Nontender without obvious deformity. No CVA tenderness. A/P Assessment and Plan 77-year-old male with past medical history significant for recent CVA with atrial fibrillation anticoagulated on Coumadin and previously supratherapeutic presents to the ED status post fall and supratherapeutic INR at 7.9 //Supratherapeutic INR No active bleeds Holding Coumadin Monitor INR Patient is a poor Coumadin candidate, will need different anticoagulation upon discharge -Patient is a fall risk, but with history of CVA warrants anticoagulation. We' ll give subcutaneous vitamin K today, recheck INR tomorrow. If INR below 2 tomorrow, can discharge to SNF with Eliquis or Xarelto. Again, I do not want to send him home today continuing to be a fall risk with supratherapeutic INR. //Acute kidney injury. Creatinine 1.9 on admission from normal baseline. Improved to 1.6 today. Uncertain etiology at this time. //Cellulitis right forearm. Likely secondary to thrombophlebitis, can't rule out infection. Continue amoxicillin, which was started on admission.. //Transaminitis. Likely subacute. False elevation from CK. AST elevated bilirubin 1.1, alkaline phosphatase elevated. Check liver ultrasound. Check CK. // A. fib -Heart rate controlled. Continue diltiazem and metoprolol Holding anticoagulation as above //Hypertension Continue home medications //COPD Shortness of breath improved on duo nebs. Continue. Monitor for hypoxemia //GERD Continue Protonix Discharge Planning Likely can go home tomorrow if labs improving, INR improved. -He will need better anticoagulation regimen on discharge. Praveen Howe MD Aug 26, 2017 12:31
[2017-08-26 13:24] LABS: ALBUMIN 2.2 GM/DL (3.4-5.0); DIRECT BILIRUBIN ADULT 0.7 MG/DL (0.0-0.2)
[2017-08-26 13:26] LABS: INDIRECT BILIRUBIN 0.4 MG/DL (0.0-0.8); TOTAL BILIRUBIN ADULT 1.1 MG/DL (0.2-1.0); TOTAL PROTEIN 6.5 GM/DL (6.4-8.2)
--- NOTE | 2017-08-26 16:18 | EKG ---
Date Performed: 08/25/2017 Time Performed: 18:37:16 PTAGE: 77 years EKG: ATRIAL FIBRILLATION INCOMPLETE RIGHT BUNDLE BRANCH BLOCK POSSIBLE ANTERIOR MYOCARDIAL INFAR CTION INFERIOR MYOCARDIAL INFARCTION Baselineartifact precludes accurate evaluation. ABNORMAL ECG NO PREVIOUS TRACING DOCTOR: Alfonso Simms Interpretating Date/Time 08/26/2017 16:17:30
--- NOTE | 2017-08-26 18:57 | RADRPT ---
EXAM DATE/TIME: 08/26/2017 18:04 [facility] COMPARISON: No previous studies available for comparison. EXTERNAL COMPARISON : [facility], US ABDOMEN LIVER, August 03, 2017[facility], US ABDOMEN GALLBLADDER, o [place]TOBER, 2014. INDICATIONS : Increased Bun and Creatinine. MEDICAL HISTORY : Hypertension. Hypercholesterolemia. Atrial fibrillation. Cerebrovascular accident. SURGICAL HISTORY : Coronary stent. Left leg biopsy. ENCOUNTER: Subsequent ACUITY: 1 day PAIN SCORE: 4/10 LOCATION: Bilateral flank MEASUREMENTS: RIGHT KIDNEY: 10.7 x 5.6 x 5.0 cm LEFT KIDNEY: 9.1 x 6.2 x 4.9 cm FINDINGS: Visualization is limited secondary to patient's body habitus. RIGHT KIDNEY: Renal cortex is normal in thickness and echotexture. No hydronephrosis, stone, or mass. LEFT KIDNEY: Renal cortex is normal in thickness and echotexture. No hydronephrosis, stone, or mass. BLADDER: Within normal limits given the degree of distension. CONCLUSION: Unremarkable exam. No hydronephrosis. Laz Caraballo MD on August 26, 2017 at 18:54 Board Certified Radiologist. This report was verified electronically.
[2017-08-27 04:00] VITALS: BP 127/68; PULSE 72; RESP 18; TEMP 97.9; O2SAT 94
[2017-08-27] MEDS: RESP: ALBUTEROL 2.5 MG/IPRATROPIUM 0.5 MG NEB (SCH) NEB ×3 (08:13→17:56)
[2017-08-27 08:17] VITALS: BP 117/59; PULSE 75; RESP 20; TEMP 97.7; O2SAT 93; O2SAT 95
[2017-08-27 08:55] LABS: BASOPHIL # 0.1 TH/MM3 (0-0.2); EOSINOPHIL # 0.2 TH/MM3 (0-0.4); EOSINOPHIL % 3.2 % (0.0-4.0); HEMATOCRIT 25.7 % (39.0-51.0); HEMOGLOBIN 8.4 GM/DL (13.0-17.0); LYMPH % 16.7 % (9.0-44.0); MEAN CELL VOLUME 98.1 FL (80.0-100.0); MEAN CORPUSCULAR HEMOGLOBIN 32.1 PG (27.0-34.0); MEAN CORPUSCULAR HGB CONC 32.7 % (32.0-36.0); MEAN PLATELET VOLUME 7.8 FL (7.0-11.0); MONOCYTE # 0.8 TH/MM3 (0-0.9); NEUT % 66.1 % (16.0-70.0); PLATELET COUNT 307 TH/MM3 (150-450); RED BLOOD COUNT 2.62 MIL/MM3 (4.50-5.90); RED CELL DISTRIBUTION WIDTH 15.3 % (11.6-17.2)
[2017-08-27 09:02] LABS: INTERNATIONAL NORMALIZED RATIO 2.3 RATIO; PROTHROMBIN TIME - PATIENT 26.1 SEC (9.8-11.6)
[2017-08-27 09:15] LABS: ALBUMIN 2.3 GM/DL (3.4-5.0); BICARBONATE 20.5 MEQ/L (21.0-32.0); CALCIUM 8.6 MG/DL (8.5-10.1); CREATININE 1.44 MG/DL (0.60-1.30); MAGNESIUM 1.7 MG/DL (1.5-2.5); PHOSPHORUS 3.2 MG/DL (2.5-4.9)
[2017-08-27] MEDS: HYDROCHLOROTHIAZIDE 25 MG TAB PO SCH (10:28)
[2017-08-27] MEDS: CLARITHROMYCIN 500 MG TAB PO SCH (10:28)
[2017-08-27] MEDS: PANTOPRAZOLE SOD 40 MG DELAYED RELEASE TAB PO SCH (10:29)
[2017-08-27] MEDS: DILTIAZEM-CD 240 MG CAP ER PO SCH (10:29)
[2017-08-27] MEDS: METOPROLOL TARTRATE 50 MG TAB PO SCH (10:29)
[2017-08-27] MEDS: SODIUM CHLORIDE 0.9% FLUSH 10 ML FLUSH IV FLUSH SCH (10:29)
[2017-08-27] MEDS: LOSARTAN 50 MG TAB PO SCH (10:29)
[2017-08-27] MEDS: AMOXICILLIN (TRIHYDRATE) 500 MG CAP PO SCH (10:29)
[2017-08-27] MEDS: DOCUSATE SODIUM 50 MG/SENNA 8.6 MG TAB PO SCH (10:29)
--- NOTE | 2017-08-27 11:17 | HHI.DS ---
Discharge Summary Admission Date Aug 25, 2017 at 19:51 Discharge Date: Aug 27, 2017 Admitting Diagnosis fall, supratherapeutic INR, cellulitis (1) CAD (coronary artery disease) ICD Code: I25.10 - Atherosclerotic heart disease of [place] coronary artery without angina pectoris Status: Chronic (2) HTN (hypertension) ICD Code: I10 - Essential (primary) hypertension Status: Chronic (3) Wide-complex tachycardia ICD Code: I47.2 - Ventricular tachycardia (4) Afib ICD Code: I48.91 - Unspecified atrial fibrillation Status: Chronic (5) History of CVA with residual deficit ICD Code: I69.30 - Unspecified sequelae of cerebral infarction Status: Chronic Procedures none Brief History - From Admission 77-year-old male with a past medical history significant for CVA (unknown timeframe) anticoagulated on Coumadin for atrial fibrillation presents [facility] emergency department from [facility] after suffering a fall. The patient has a history of supratherapeutic INR and was sent to the emergency department for further evaluation. On arrival in the ED, the patient's INR was 7.9. He was seen in the emergency department yesterday for evaluation of right arm swelling. Ultrasound of the right arm showed superficial clot without DVT. INR yesterday in the emergency department was 9.1. Patient with no active bleeding and was discharged back to the [facility] with Coumadin being held and orders to follow INR. Patient with a history of COPD, currently complaining of shortness of breath. Oxygen saturation 93% on room air. Denies chest pain. Chest x-ray within normal limits. Head CT negative for bleed. Right arm CT showed no acute fracture and mild soft tissue swelling and edema. CBC/BMP: 08/27/17 0803 08/27/17 0803 Significant Findings Laboratory Tests Test 08/25/17 17:30 08/25/17 17:50 08/26/17 05:28 08/27/17 08:03 Urine Urobilinogen 4.0 MG/DL (LESS THAN Red Blood Count 2.95 MIL/MM3 (4.50-5.90) 2.57 MIL/MM3 (4.50-5.90) 2.62 MIL/MM3 (4.50-5.90) Hemoglobin 9.6 GM/DL (13.0-17.0) 8.4 GM/DL (13.0-17.0) 8.4 GM/DL (13.0-17.0) Hematocrit 29.2 % (39.0-51.0) 25.3 % (39.0-51.0) 25.7 % (39.0-51.0) Neutrophils (%) (Auto) 72.6 % (16.0-70.0) Monocytes (%) (Auto) 12.1 % (0.0-8.0) 12.8 % (0.0-8.0) 13.0 % (0.0-8.0) Neutrophils # (Auto) 7.8 TH/MM3 (1.8-7.7) Monocytes # (Auto) 1.3 TH/MM3 (0-0.9) Prothrombin Time 95.7 SEC (9.8-11.6) 64.8 SEC (9.8-11.6) 26.1 SEC (9.8-11.6) Prothromb Time International Ratio 7.9 RATIO Blood Urea Nitrogen 36 MG/DL (7-18) 32 MG/DL (7-18) 26 MG/DL (7-18) Creatinine 1.93 MG/DL (0.60-1.30) 1.58 MG/DL (0.60-1.30) 1.44 MG/DL (0.60-1.30) Albumin 2.4 GM/DL (3.4-5.0) 2.2 GM/DL (3.4-5.0) 2.3 GM/DL (3.4-5.0) Calcium Level 8.3 MG/DL (8.5-10.1) 8.1 MG/DL (8.5-10.1) Alkaline Phosphatase 365 U/L (45-117) 293 U/L (45-117) Aspartate Amino Transf (AST/SGOT) 76 U/L (15-37) 50 U/L (15-37) Total Bilirubin 1.1 MG/DL (0.2-1.0) 1.1 MG/DL (0.2-1.0) Chloride Level 110 MEQ/L (98-107) 110 MEQ/L (98-107) 108 MEQ/L (98-107) Carbon Dioxide Level 20.2 MEQ/L (21.0-32.0) 20.5 MEQ/L (21.0-32.0) Estimat Glomerular Filtration Rate 34 ML/MIN (>89) 43 ML/MIN (>89) 48 ML/MIN (>89) Direct Bilirubin 0.7 MG/DL (0.0-0.2) Imaging Last Impressions Renal Ultrasound 08/26/17 0000 Signed Impressions: Service Date/Time: August 18:04 - CONCLUSION: Unremarkable exam. No hydronephrosis. Laz Caraballo MD Chest X-Ray 08/25/17 1734 Signed Impressions: Service Date/Time: Friday, August 25, 2017 17:39 - CONCLUSION: Compensated cardiomegaly otherwise negative Kendall Navarro MD FACR Upper Extremity CT 08/25/17 0000 Signed Impressions: Service Date/Time: Friday, August 25, 2017 19:09 - CONCLUSION: 1. Soft tissue swelling and edema. 2. No acute fracture or malalignment. Laz Caraballo MD Head CT 08/25/17 0000 Signed Impressions: Service Date/Time: Friday, August 25, 2017 19:05 - CONCLUSION: 1. No acute hemorrhage or mass effect. 2. Moderate atrophic change as well as a large area of encephalomalacia involving the left frontal and parietal lobes. Laz Caraballo MD PE at Discharge GENERAL: Patient sitting up in chair. Appears comfortable. CARDIOVASCULAR: Regular rate and rhythm without murmurs, gallops, or rubs. RESPIRATORY: Breath sounds equal bilaterally. No accessory muscle use. GASTROINTESTINAL: Abdomen soft, non-tender, nondistended. MUSCULOSKELETAL: No cyanosis, or edema. Right arm with erythema improving. No broken skin. BACK: Nontender without obvious deformity. No CVA tenderness. Hospital Course 77-year-old male with past medical history significant for recent CVA with atrial fibrillation anticoagulated on Coumadin and previously supratherapeutic presents to the ED status post fall and supratherapeutic INR at 7.9 Supratherapeutic INR No active bleeds Holding Coumadin Monitor INR Patient is a poor Coumadin candidate, will need different anticoagulation upon discharge -Patient is a fall risk, but with history of CVA warrants anticoagulation. We' ll give subcutaneous vitamin K today, recheck INR tomorrow. If INR below 2 tomorrow, can discharge to SNF with Eliquis or Xarelto. Again, I do not want to send him home today continuing to be a fall risk with supratherapeutic INR. Acute kidney injury. Creatinine 1.9 on admission from normal baseline. Improved to 1.6 today. Uncertain etiology at this time. Cellulitis right forearm. Likely secondary to thrombophlebitis, can't rule out infection. Continue amoxicillin, which was started on admission.. Transaminitis. Likely subacute. False elevation from CK. AST elevated bilirubin 1.1, alkaline phosphatase elevated. Check liver ultrasound. Check CK. A. fib -Heart rate controlled. Continue diltiazem and metoprolol Holding anticoagulation as above Hypertension Continue home medications COPD Shortness of breath improved on duo nebs. Continue. Monitor for hypoxemia GERD -Continue Protonix Discharge Planning INR improved, start coumadin at 3 mg daily , consult pharmacy. Patient to have close f./u as OP INR and to change dose appropriately. Also might consider other anticoagulation if need. -He will need better anticoagulation regimen on discharge. Pt Condition on Discharge: Stable Discharge Disposition: Disch w/ Home Health Serv Discharge Time: > 30 minutes Discharge Instructions DIET: Follow Instructions for: Heart Healthy Diet, Coumadin (Warfarin) Diet Activities you can perform: Regular-No Restrictions Follow up Referrals: PCP Follow-up - 2-3 Days SNF/[facility] New Orders: PT/INR - 2-3 Days New Medications: Warfarin (Coumadin) 3 Mg Tab 3 MG PO DAILY for Prevent Blood Clot, #30 TAB 0 Refills Continued Medications: Acetaminophen (Tylenol) 325 Mg Tab 650 MG PO Q4H PRN for PAIN 1-10 AND/OR FEVER >101F, TAB 0 Refills Amoxicillin (Amoxicillin) 500 Mg Cap 500 MG PO BID for Infection for 10 Days, #20 CAP 0 Refills Bisacodyl Supp (Dulcolax Supp) 10 Mg Supp 10 MG RECTAL DAILY PRN for IF NO RESULTS FROM MILK OF MAG, #12 SUPP 0 Refills Clarithromycin (Clarithromycin) 500 Mg Tab 500 MG PO BID for Infection for 10 Days, #20 TAB 0 Refills Diltiazem CD 24 HR (Diltiazem CD 24 HR) 240 Mg Caper 240 MG PO DAILY, #30 CAP 0 Refills Lactobacillus (Acidophilus Probiotic) 100 Mg (1 Billion Cell) Cap 1 CAP PO Q8HR for 14 Days Losartan-Hydrochlorothiazide (Losartan-Hydrochlorothiazide) 100-25 Mg Tab 1 TAB PO DAILY for Blood Pressure Management, #30 TAB 0 Refills Magnesium Citrate Liq (Citroma Liq) 300 Ml Liq 296 ML PO IN AM PRN for IF NO REULTS AFTER ENEMA, #1 BOTTLE 0 Refills Magnesium Hydroxide Liq (Milk of Magnesia Liq) 400 Mg/5 Ml Susp 30 ML PO HS PRN for IF NO BM IN 3 DAYS, #1 BOTTLE 0 Refills Metoprolol Tartrate (Lopressor) 50 Mg Tab 50 MG PO BID, #60 TAB 0 Refills Multiple Vitamin (Multiple Vitamin) 1 Tab 1 TAB PO DAILY for Nutritional Supplement, TAB 0 Refills Pantoprazole (Protonix) 40 Mg Tab 40 MG PO BID for GERD, #30 TAB 0 Refills Sodium Phosphates (Enema Disposable) 19 Gram-7 Gram/118 Ml Bertha 1 APPLIC TOPICAL PRN for IF NO RESULTS FROM Rosi Villatoro MD Aug 27, 2017 11:17
--- NOTE | 2017-08-27 11:19 | HHI.FF ---
Face to Face Verification Diagnosis: (1) H. pylori infection (2) CAD (coronary artery disease) (3) HTN (hypertension) (4) Wide-complex tachycardia (5) Afib (6) Cellulitis of forearm, right (7) Supratherapeutic INR (8) History of CVA with residual deficit I have seen patient Dimple Singh on 08/27/17. My clinical findings support the need for the requested home health care services because: I certify that my clinical findings support that this patient is homebound because: Rosi Oliva MD Aug 27, 2017 11:19
[2017-08-27] MEDS ORDERED: COUM3TAB PO (11:43)
[2017-08-27 12:36] VITALS: BP 115/58; PULSE 81; RESP 20; TEMP 98.1; O2SAT 94
[2017-08-27 16:00] VITALS: BP 108/56; PULSE 100; RESP 20; TEMP 98.1; O2SAT 90
--- NOTE | 2017-08-27 16:30 | HHI.PR ---
Subjective Remarks In bed. appears in nad. Eating lunch. No fever ro chilsl. No bleding from mucuous membranes. No fever ro chills. Objective Vitals Vital Signs Date Time Temp Pulse Resp B/P (MAP) Pulse Ox O2 Delivery O2 Flow Rate FiO2 08/27/17 12:36 98.1 81 20 115/58 (77) 94 08/27/17 08:17 95 21 08/27/17 08:17 97.7 75 20 117/59 (78) 93 08/27/17 04:00 97.9 72 18 127/68 (87) 94 08/26/17 21:29 94 21 08/26/17 20:00 97.7 84 20 128/61 (83) 95 I/O 08/26/17 08/26/17 08/26/17 08/27/17 08/27/17 08/27/17 07:00 15:00 23:00 07:00 15:00 23:00 Intake Total 200 ml 240 ml 120 ml Output Total 120 ml 250 ml Balance 80 ml -10 ml 120 ml Intake Oral 200 ml 240 ml 120 ml Output Urine Total 120 ml 250 ml # Voids 2 # Bowel Movements 1 1 Result Diagram: 08/27/17 0803 08/27/17 0803 Objective Remarks GENERAL: Patient sitting up in chair. Appears comfortable. CARDIOVASCULAR: Regular rate and rhythm without murmurs, gallops, or rubs. RESPIRATORY: Breath sounds equal bilaterally. No accessory muscle use. GASTROINTESTINAL: Abdomen soft, non-tender, nondistended. MUSCULOSKELETAL: No cyanosis, or edema. Right arm with erythema improving. No broken skin. BACK: Nontender without obvious deformity. No CVA tenderness. Procedures none A/P Assessment and Plan 77-year-old male with past medical history significant for recent CVA with atrial fibrillation anticoagulated on Coumadin and previously supratherapeutic presents to the ED status post fall and supratherapeutic INR at 7.9 Supratherapeutic INR No active bleeds Holding Coumadin Monitor INR Patient is a poor Coumadin candidate, will need different anticoagulation upon discharge -Patient is a fall risk, but with history of CVA warrants anticoagulation. We' ll give subcutaneous vitamin K today, recheck INR tomorrow. If INR below 2 tomorrow, can discharge to SNF with Eliquis or Xarelto. Again, I do not want to send him home today continuing to be a fall risk with supratherapeutic INR. Acute kidney injury. Creatinine 1.9 on admission from normal baseline. Improved to 1.6 today. Uncertain etiology at this time. Cellulitis right forearm. Likely secondary to thrombophlebitis, can't rule out infection. Continue amoxicillin, which was started on admission.. Transaminitis. Likely subacute. False elevation from CK. AST elevated bilirubin 1.1, alkaline phosphatase elevated. Check liver ultrasound. Check CK. A. fib -Heart rate controlled. Continue diltiazem and metoprolol Holding anticoagulation as above Hypertension Continue home medications COPD Shortness of breath improved on duo nebs. Continue. Monitor for hypoxemia GERD -Continue Protonix Discharge Planning INR improved, start coumadin at 3 mg daily , consult pharmacy. Patient to have close f./u as OP INR and to change dose appropriately. Also might consider other anticoagulation if need. -He will need better anticoagulation regimen on discharge. Rosi Oliva MD Aug 27, 2017 16:30
[2017-08-27] MEDS ORDERED: WARFARIN SOD 3 MG TAB PO SCH (18:02)
== END 2017-08-27 18:26 | disposition home health service (06) | DRG 948 ==
LOC: NEPE 17:09 → NEDA 19:51 → N04B 21:59
PROVIDERS: ADMIT Hospitalist; ATTEND Hospitalist
DX: R79.1 Abnormal coagulation profile (principal); N17.9 Acute kidney failure, unspecified; J44.9 Chronic obstructive pulmonary disease, unspecified; I80.8 Phlebitis and thrombophlebitis of other sites; I48.91 Unspecified atrial fibrillation; L03.113 Cellulitis of right upper limb; I69.320 Aphasia following cerebral infarction; I10 Essential (primary) hypertension; I25.10 Atherosclerotic heart disease of native coronary artery without angina pectoris; K21.9 Gastro-esophageal reflux disease without esophagitis; E78.00 Pure hypercholesterolemia, unspecified; R74.0 Nonspecific elevation of levels of transaminase and lactic acid dehydrogenase [LDH]; Z91.81 History of falling; Z79.01 Long term (current) use of anticoagulants; Z95.5 Presence of coronary angioplasty implant and graft
CPT/HCPCS: 70450; 71010; 73200; 76775; 80048; 80053; 80069; 80076; 81001; 82550; 82948; 83605; 83735; 85025; 85610; 87040; 93005; 94640; 94664; 96365; 96367; J2543; J3370; J3430; J7030; J7050

== ENCOUNTER 2017-10-18 09:11 | Emergency (ER) | payer MEDICARE ==
[~2017-10-18] VITALS: Ht 167.6 cm; Wt 85.0 kg
[~2017-10-18 09:11] MED LIST changes: +ACID100C PO; +CITRSOL4 PO; +COUM3TAB PO; -DILT-64 PO; +DILT240C44 PO; +DULC10SU3 RECTAL; +ENEMENE5 TOPICAL; +MILKSUS PO; +MULTTAB67 PO; -PANT40TA3 PO; +PROT40TA PO; +TYLE325T PO; -WARF-23 PO; -WARF-60 PO
[2017-10-18 09:25] VITALS: BP 111/59; PULSE 89; RESP 17; TEMP 97.6; O2SAT 96
[2017-10-18] MEDS ORDERED: WARF4TAB52 PO (09:34)
--- NOTE | 2017-10-18 09:42 | PD ---
HPI Chief Complaint: Fall Time Seen by Provider: 09:26 Travel History International Travel<30 days: No Contact w/Intl Traveler<30days: No Traveled to known affect area: No History of Present Illness HPI Patient is a 77-year-old male presents emergency department after rolling out of bed. Apparently has a history of a stroke and is on Coumadin. States last Coumadin test was 2 months ago and it was fine. States he has weakness in lower extremities as well as weakness in his right upper extremity at baseline. He has a dense stutter somewhat limiting his history. He lives at home with his , we are trying to get in touch with her further history. Denies any complaints at this time denies any dizziness loss consciousness chest pain weakness abdominal pain. PFSH Past Medical History Cerebrovascular Accident: Yes Medical other: Yes (LIMITED HISTORY - PT STATES HE HAS SX ON HIS PROSTATE) Social History Alcohol Use: Yes (OCC) Tobacco Use: No Allergies-Medications (Allergen,Severity, Reaction): Coded Allergies: No Known Allergies (Unverified , 10/18/17) Reported Meds & Prescriptions Reported Meds & Active Scripts Active Reported Warfarin 1 Mg Tab 1 Mg PO DAILY Review of Systems Except as stated in HPI: all other systems reviewed are Neg Physical Exam Narrative GENERAL: Well-developed well-nourished, no obvious distress SKIN: Focused skin assessment warm/dry. Small abrasions noted to the left proximal forearm. HEAD: No arboleda signs no raccoons eyes, there is a small contusion to the left side of his forehead.. Normocephalic. EYES: Pupils equal and round. No scleral icterus. No injection or drainage. ENT: No nasal bleeding or discharge. Mucous membranes pink and moist. NECK: Trachea midline. No JVD. CARDIOVASCULAR: Regular rate and rhythm. No murmur appreciated. RESPIRATORY: No accessory muscle use. Clear to auscultation. Breath sounds equal bilaterally. GASTROINTESTINAL: Abdomen soft, non-tender, nondistended. Hepatic and splenic margins not palpable. MUSCULOSKELETAL: No obvious deformities. No clubbing. No cyanosis. No edema. No midline CT or L-spine tenderness, no bony tenderness. NEUROLOGICAL: Awake and alert. Stuttering speech, otherwise cranial nerves II through XII are grossly intact and nonfocal, patient has 4-5 director internal communications strength on the right and 5 out of 5 director internal communications strength on the left, 5 out of 5 plantar flexion in both lower extremities. Exhibiting some moderate intention tremor in his right upper extremity. PSYCHIATRIC: Appropriate mood and affect; insight and judgment normal. Data Data Last Documented VS Vital Signs Date Time Temp Pulse Resp B/P (MAP) Pulse Ox O2 Delivery O2 Flow Rate FiO2 10/18/17 12:38 68 18 98/67 (77) 98 Room Air 10/18/17 09:[address] Brain W/O Iv Contrast(Rout) (10/18/17 ) Ct Cerv Spine W/O Contrast (10/18/17 ) Prothrombin Time / Inr (Pt) (10/18/17 09:39) Ed Discharge Order (10/18/17 12:16) Labs Laboratory Tests Test 10/18/17 09:44 Prothrombin Time 24.8 SEC Prothromb Time International Ratio 2.5 RATIO MDM Medical Decision Making Medical Screen Exam Complete: Yes Emergency Medical Condition: Yes Differential Diagnosis Closed head injury, concussion, fall, skin avulsion Narrative Course Patient roomed in emergency department, neurologic baseline per after she is arrived, no intervention indicated on the left forearm abrasions except for a bandage, CT head and C-spine negative. INR therapeutic. He is stable for discharge. He states his tetanus is up-to-date. is arrived to take him home. Discussed return to ED criteria follow-up with a primary care physician. Diagnosis Primary Impression: Head injury, closed Qualified Codes: S09.90XA - Unspecified injury of head, initial encounter Disposition: 01 DISCHARGE HOME Condition: Stable Gume Leblanc MD Oct 18, 2017 09:42
--- NOTE | 2017-10-18 10:15 | RADRPT ---
EXAM DATE/TIME: 10/18/2017 09:49 [facility] COMPARISON: No previous studies available for comparison. INDICATIONS : Trauma, fall. Abrasion to left anterior head. RADIATION DOSE: 37.29 CTDIvol (mGy) MEDICAL HISTORY : Cerebrovascular disease. SURGICAL HISTORY : None. ENCOUNTER: Initial ACUITY: 1 day PAIN SCALE: 4/10 LOCATION: cranial TECHNIQUE: Multiple contiguous axial images were obtained of the head. Using automated exposure control and adj ustment of the mA and/or kV according to patient size, radiation dose was kept as low as reasonably a chievable to obtain optimal diagnostic quality images. DICOM format image data is available electro nically for review and comparison. FINDINGS: CEREBRUM: Old infarct left anterior sylvian region. No parenchymal hemorrhage. Ventricle size appropriate. POSTERIOR FOSSA: The cerebellum and brainstem are intact. The 4th ventricle is midline. The cerebellopontine angle i s unremarkable. EXTRACRANIAL: The visualized portion of the orbits is intact. SKULL: The calvaria is intact. No evidence of skull fracture. CONCLUSION: Negative for acute process. Kendall Navarro MD FACR on October 18, 2017 at 10:12 Board Certified Radiologist. This report was verified electronically.
[2017-10-18 10:16] LABS: INTERNATIONAL NORMALIZED RATIO 2.5 RATIO; PROTHROMBIN TIME - PATIENT 24.8 SEC (9.8-11.6)
--- NOTE | 2017-10-18 10:57 | RADRPT ---
EXAM DATE/TIME: 10/18/2017 09:49 [facility] COMPARISON: No previous studies available for comparison. INDICATIONS : Trauma, fall. Hit left side of head. RADIATION DOSE: 22.24 CTDIvol (mGy) MEDICAL HISTORY : Cerebrovascular disease. SURGICAL HISTORY : None. ENCOUNTER: Initial ACUITY: 1 day PAIN SCALE: 0/10 LOCATION: neck TECHNIQUE: Volumetric scanning of the cervical spine was performed. Multiplanar reconstructions in the sagittal, coronal and oblique axial planes were performed. Using automated exposure control and adjustment o f the mA and/or kV according to patient size, radiation dose was kept as low as reasonably achievable to obtain optimal diagnostic quality images. DICOM format image data is available electronically f or review and comparison. FINDINGS: VERTEBRAE: Normal vertebral body height. ALIGNMENT: No evidence of subluxation. C2-C3: The bony spinal canal is normal in size. No evidence of disc bulge or herniation. The neural forami na are bilaterally patent. C3-C4: The bony spinal canal is normal in size. No evidence of disc bulge or herniation. The neural forami na are bilaterally patent. C4-C5: The bony spinal canal is normal in size. No evidence of disc bulge or herniation. The neural forami na are bilaterally patent. C5-C6: Mild interspace ridging without significant spinal stenosis. Neural foramen are adequate. C6-C7: Moderate interspace region the bilateral neural foramina encroachment. C7-T1: The bony spinal canal is normal in size. No evidence of disc bulge or herniation. The neural forami na are bilaterally patent. CONCLUSION: Degenerative changes, negative for fracture or Kendall Navarro MD FACR on October 18, 2017 at 10:54 Board Certified Radiologist. This report was verified electronically.
[2017-10-18 12:38] VITALS: BP 98/67; PULSE 68; RESP 18; O2SAT 98
== END 2017-10-18 12:41 | disposition home or self-care (01) ==
LOC: NEPC 09:11 → MERGE 09:11 → NEPC 12:41
DX: S09.90XA Unspecified injury of head, initial encounter (principal); W06.XXXA Fall from bed, initial encounter; Z79.01 Long term (current) use of anticoagulants; Z86.73 Personal history of transient ischemic attack (TIA), and cerebral infarction without residual deficits
CPT/HCPCS: 70450; 72125; 85610; 99285